=== PATIENT | female | born 1950 | race Caucasian/White ===

== ENCOUNTER 2023-07-10 21:23 | Inpatient (IN) ==
[2023-07-10] MEDS: SODIUM CHLORIDE 0.9% 500 ML IV STA (21:43)
[2023-07-10 22:11] LABS: Basophils # (auto) 0.02 K/uL (0.00-0.20); Basophils % (auto) 0.2 %; Eosinophils # (auto) 0.01 K/uL (0.00-0.50); Eosinophils % (auto) 0.1 %; Hematocrit (blood only) 40.6 % (37.0-47.0); Hemoglobin 13.5 g/dl (12.0-16.0); Immature Granulocytes # (auto) 0.07 K/uL (0.01-0.20); Immature Granulocytes % (auto) 0.5 %; Lymphocytes # (auto) 1.42 K/uL (1.20-3.40); Lymphocytes % (auto) 10.7 %; Mean Corpuscular Hemoglobin 30.8 pg (25.0-34.0); Mean Corpuscular Hgb Conc 33.3 g/dL (32.0-36.0); Mean Corpuscular Volume 92.7 fL (80.0-100.0); Mean Platelet Volume 9.5 fL (9.4-12.4); Monocytes # (auto) 0.87 K/uL (0.11-0.59); Monocytes % (auto) 6.6 %; Neutrophils # (auto) 10.88 K/uL (1.40-6.50); Neutrophils % (auto) 81.9 %; Platelet Count 280 K/uL (130-400); RDW Coefficient of Variation 12.5 % (11.5-14.5); RDW Standard Deviation 42.6 fL (36.4-46.3); Red Blood Count 4.38 M/uL (4.20-5.40); White Blood Count 13.27 K/ul (4.8-10.8)
[2023-07-10 22:22] LABS: Albumin Globulin Ratio 1.8 (0.9-2); Albumin Level 4.4 gm/dl (3.4-5.0); Bilirubin,Total 0.5 mg/dl (0.2-1.0); Calcium 9.2 mg/dl (8.6-10.3); Creatinine Clr Calc Pharmacy 54.5 ml/min; Est GFR (African American) 68.5 ml/min; Est GFR (Non-African American) 59.1 ml/min; Globulin 2.5 gm/dl (2.5-4.0); Potassium 4.1 mmol/L (3.5-5.1); Total Protein 6.9 gm/dl (6.0-8.3)
[2023-07-11 00:05] LABS: Appearance Urine Turbid (Clear); Bacteria Urine Automated 2+ (None Seen); Bilirubin Urine Negative (Negative); Blood Urine 1+ (Negative); Cast Urine Automated 0-2 /lpf (0-2); Color Urine Dark Yellow; Epithelial Cell Urine Auto 0-2 /hpf (0-2); Glucose Urine UA Negative (Negative); Ketones Urine Negative (Negative); Leukocyte Esterase Urine 3+ (Negative); Nitrite Urine Positive (Negative); Protein Urine 2+ (Negative); RBC Urine Automated >20 /hpf (0-2); Urobilinogen Urine Negative (Negative)
[2023-07-11] MEDS: ACETAMINOPHEN 1,000 MG/100 ML VIAL IV STA (00:30)
--- NOTE | 2023-07-11 00:56 | CT Scan Report ---
Exam(s): CT ABDOMEN + PELVIS Without Contrast EXAM: CT Abdomen and Pelvis Without Intravenous Contrast CLINICAL HISTORY: Reason for exam: R flank pain. TECHNIQUE: Axial computed tomography images of the abdomen and pelvis without intravenous contrast. CTDI is 22.14 mGy and DLP is 1132.15 mGy-cm. Automated exposure control was utilized for the study. A dose lowering technique was utilized adhering to the principles of ALARA. COMPARISON: No relevant prior studies available. FINDINGS: Lung bases: Unremarkable. No mass. No consolidation. ABDOMEN: Liver: Unremarkable. Gallbladder and bile ducts: Unremarkable. No calcified stones. No ductal dilation. Pancreas: Unremarkable. No ductal dilation. Spleen: Unremarkable. No splenomegaly. Adrenals: Unremarkable. No mass. Kidneys and ureters: Right-sided nephroureteral stent terminates in the urinary bladder. Severe hydronephrosis of the RIGHT kidney with perinephric stranding. Correlate for proper functioning of the RIGHT nephroureteral stent. Stomach and bowel: Diverticulosis, without acute diverticulitis. No small bowel obstruction. No free intraperitoneal air. PELVIS: Appendix: No findings to suggest acute appendicitis. Bladder: Unremarkable. No stones. Reproductive: Unremarkable as visualized. ABDOMEN and PELVIS: Intraperitoneal space: Unremarkable. No free air. No significant fluid collection. Bones/joints: Grade 1 anterolisthesis of L5 on S1 with bilateral pars defects at L5. Degenerative changes of the spine. No acute fracture. No dislocation. Soft tissues: Unremarkable. Vasculature: Atherosclerotic changes of the aorta. No abdominal aortic aneurysm. Lymph nodes: Unremarkable. No enlarged lymph nodes. IMPRESSION: Right-sided nephroureteral stent terminates in the urinary bladder. Severe hydronephrosis of the RIGHT kidney with perinephric stranding. Correlate for proper functioning of the RIGHT nephroureteral stent. Electronically signed by: Maximo Atkins MD 07/11/23 00:55 AM
[2023-07-11] MEDS: cefTRIAXone SODIUM 2,000 MG/50 ML BAG IV STA (01:14)
--- NOTE | 2023-07-11 02:49 | Emergency Department Note ---
History of Present Illness General Chief complaint: Flank Pain Stated complaint: KIDNEY INFECTON, R SIDED BACK PAIN, NAUSEA, STENT Time Seen by Provider: 07/11/23 00:04 History of Present Illness Maximum Pain Intensity: 0 This 72-year-old female with a stent in her right ureter presents the ER complaining of urinary symptoms and pain. Patient denies chest pain, dyspnea, fevers, vomiting. No rash. No trauma to the area. Home Medications Medication Instructions Recorded Confirmed Type atorvastatin 40 mg tablet 40 mg PO HS 08/02/19 07/11/23 History sertraline 50 mg tablet 50 mg PO HS 07/11/23 07/11/23 History Allergies Allergy/AdvReac Type Severity Reaction Status Date / Time No Known Allergies Allergy Unknown Verified 07/11/23 01:51 Past Med/Surg History Medical History Depression HLD (hyperlipidemia) Uterine cancer Surgical History Hx of tonsillectomy History of hysterectomy Family History Other Family history non-contributory Social History Smoking Status: Never smoker Hx Alcohol Use: No Hx Substance Use: No Preferred Language: Pashto Communication Ability: Effective Rotary Drier Required: Yes Beliefs That Will Affect Care: None Current Living Situation: Alone Current Living Situation Comment: Owns home, ramp to enter Other Information That Helps Us Care for You: No Feels Safe at Home: Yes Safety Concerns: Feels Safe At This Time Assistive Devices: None Review of Systems A total of 10 systems reviewed and were otherwise negative Physical Exam Vital Signs Vital Signs - 24 hr 07/10/23 21:31 07/11/23 00:23 07/11/23 00:33 Temperature 36.9 C Temperature Source Temporal Artery Scan Pulse Rate 83 68 Pulse Rate [Finger] 69 Pulse Rate from SpO2 Sensor Respiratory Rate 16 18 Respiratory Effort / Characteristics Non-Labored Spontaneous Respiratory Depth Normal Blood Pressure 179/79 H Blood Pressure [Left Arm] 182/82 H Blood Pressure Mean 112 Blood Pressure Mean [Left Arm] 115 Pulse Oximetry 96 92 Oxygen Delivery Method Room Air Sepsis Recent Fever Within 48 Hours No Sepsis New/Unexplained Change in Mental Status N/A Sepsis Action Taken by Nursing No Action Required 07/11/23 00:34 07/11/23 00:40 07/11/23 00:50 Temperature Temperature Source Pulse Rate 68 66 68 Pulse Rate [Finger] Pulse Rate from SpO2 Sensor 69 66 68 Respiratory Rate 20 20 20 Respiratory Effort / Characteristics Respiratory Depth Blood Pressure Blood Pressure [Left Arm] Blood Pressure Mean Blood Pressure Mean [Left Arm] Pulse Oximetry 96 94 92 Oxygen Delivery Method Sepsis Recent Fever Within 48 Hours Sepsis New/Unexplained Change in Mental Status Sepsis Action Taken by Nursing 07/11/23 01:00 07/11/23 01:04 07/11/23 01:04 Temperature Temperature Source Pulse Rate 63 64 64 Pulse Rate [Finger] Pulse Rate from SpO2 Sensor 63 62 Respiratory Rate 16 20 20 Respiratory Effort / Characteristics Respiratory Depth Blood Pressure 141/71 H Blood Pressure [Left Arm] Blood Pressure Mean 123 Blood Pressure Mean [Left Arm] Pulse Oximetry 96 96 96 Oxygen Delivery Method Sepsis Recent Fever Within 48 Hours Sepsis New/Unexplained Change in Mental Status Sepsis Action Taken by Nursing 07/11/23 01:10 07/11/23 01:20 07/11/23 01:30 Temperature Temperature Source Pulse Rate 61 75 70 Pulse Rate [Finger] Pulse Rate from SpO2 Sensor 62 77 69 Respiratory Rate 17 12 21 Respiratory Effort / Characteristics Respiratory Depth Blood Pressure Blood Pressure [Left Arm] Blood Pressure Mean Blood Pressure Mean [Left Arm] Pulse Oximetry 93 97 97 Oxygen Delivery Method Sepsis Recent Fever Within 48 Hours Sepsis New/Unexplained Change in Mental Status Sepsis Action Taken by Nursing 07/11/23 01:30 07/11/23 01:40 07/11/23 01:50 Temperature Temperature Source Pulse Rate 70 65 64 Pulse Rate [Finger] Pulse Rate from SpO2 Sensor 67 65 Respiratory Rate 21 22 19 Respiratory Effort / Characteristics Respiratory Depth Blood Pressure 154/85 H Blood Pressure [Left Arm] Blood Pressure Mean 126 Blood Pressure Mean [Left Arm] Pulse Oximetry 97 94 95 Oxygen Delivery Method Sepsis Recent Fever Within 48 Hours Sepsis New/Unexplained Change in Mental Status Sepsis Action Taken by Nursing 07/11/23 02:00 07/11/23 02:00 07/11/23 02:10 Temperature Temperature Source Pulse Rate 64 64 66 Pulse Rate [Finger] Pulse Rate from SpO2 Sensor 65 65 Respiratory Rate 23 23 19 Respiratory Effort / Characteristics Respiratory Depth Blood Pressure 159/80 H Blood Pressure [Left Arm] Blood Pressure Mean 111 Blood Pressure Mean [Left Arm] Pulse Oximetry 95 95 97 Oxygen Delivery Method Sepsis Recent Fever Within 48 Hours Sepsis New/Unexplained Change in Mental Status Sepsis Action Taken by Nursing 07/11/23 02:20 07/11/23 03:00 07/11/23 03:30 Temperature Temperature Source Pulse Rate 64 60 60 Pulse Rate [Finger] Pulse Rate from SpO2 Sensor 65 60 61 Respiratory Rate 17 15 21 Respiratory Effort / Characteristics Respiratory Depth Blood Pressure 141/68 H 128/69 Blood Pressure [Left Arm] Blood Pressure Mean 92 88 Blood Pressure Mean [Left Arm] Pulse Oximetry 98 93 94 Oxygen Delivery Method Room Air Room Air Sepsis Recent Fever Within 48 Hours Sepsis New/Unexplained Change in Mental Status Sepsis Action Taken by Nursing 07/11/23 04:00 07/11/23 04:00 Temperature Temperature Source Pulse Rate 69 Pulse Rate [Finger] Pulse Rate from SpO2 Sensor 68 Respiratory Rate 16 Respiratory Effort / Characteristics Respiratory Depth Blood Pressure 130/66 Blood Pressure [Left Arm] Blood Pressure Mean 86 Blood Pressure Mean [Left Arm] Pulse Oximetry 93 Oxygen Delivery Method Sepsis Recent Fever Within 48 Hours Sepsis New/Unexplained Change in Mental Status Sepsis Action Taken by Nursing VITALS: Vitals are noted on the nurse's note and reviewed by myself. Vital signs stable. GENERAL: Pleasant female with friend present, in no acute distress, nondiaphoretic, well-developed well-nourished. SKIN: Capillary reflex less than 2 seconds. HEENT: Normocephalic. PERRLA. EOMI. Nares patent. Mucous membranes moist. Neck is supple without nuchal rigidity. HEART: Regular rate and rhythm LUNGS: Clear to auscultation bilaterally without wheezes, rales or rhonchi. No retractions or accessory muscle use. ABDOMEN: Positive bowel sounds x 4. Normal tympanic percussion. Soft, tender lower abdomen, without masses or organomegaly. Warner sign negative. No guarding or rebound tenderness. no CVA tenderness MUSCULOSKELETAL: No gross musculoskeletal defects. NEURO: Patient was alert and oriented to person place and time. No focal neurological deficits. Course Administered Medications Sodium Chloride (Nss) 1,000 mls @ 125 mls/hr IV .Q8H OLVIN Stop: 08/10/23 05:11 Last Admin: 07/11/23 16:20 Dose: 125 mls/hr Documented By: Infusion: 07/11/23 16:17 Dose: Infused Documented By: Admin: 07/11/23 05:49 Dose: 125 mls/hr Documented By: KESHA Discontinued Medications Sodium Chloride (Nss) 500 mls @ 999 mls/hr IV .Q31M STA Stop: 07/10/23 22:02 Last Infusion: 07/11/23 00:19 Dose: Infused Documented By: Admin: 07/10/23 21:43 Dose: 999 mls/hr Documented By: GELA Acetaminophen (Ofirmev) 1,000 mg in 100 mls @ 400 mls/hr IV NOW STA Stop: 07/11/23 00:27 Last Infusion: 07/11/23 01:27 Dose: Infused Documented By: Admin: 07/11/23 00:30 Dose: 400 mls/hr Documented By: BURTON Ceftriaxone Sodium (Rocephin) 2,000 mg in 50 mls @ 100 mls/hr IV NOW STA Stop: 07/11/23 01:10 Last Infusion: 07/11/23 01:43 Dose: Infused Documented By: Admin: 07/11/23 01:14 Dose: 100 mls/hr Documented By: BURTON Medical Decision Making Medical Records Attestation: I reviewed the patient's medical records. Home Medications Current Medication List: was personally reviewed by me Laboratory Data Attestation: I reviewed the patient's lab results. 07/11/23 06:57 07/11/23 06:57 Lab Results 07/10/23 07/10/23 07/11/23 Range/Units 21:44 23:53 01:13 WBC 13.27 H (4.8-10.8) K/ul RBC 4.38 (4.20-5.40) M/uL Hgb 13.5 (12.0-16.0) g/dl Hct 40.6 (37.0-47.0) % MCV 92.7 (80.0-100.0) fL MCH 30.8 (25.0-34.0) pg MCHC 33.3 (32.0-36.0) g/dL RDW Std Deviation 42.6 (36.4-46.3) fL RDW Coeff of Narayan 12.5 (11.5-14.5) % Plt Count 280 (130-400) K/uL MPV 9.5 (9.4-12.4) fL Immature Gran % (Auto) 0.5 % Neut % (Auto) 81.9 % Lymph % (Auto) 10.7 % Pepin % (Auto) 6.6 % Eos % (Auto) 0.1 % Baso % (Auto) 0.2 % Neut # (Auto) 10.88 H (1.40-6.50) K/uL Lymph # (Auto) 1.42 (1.20-3.40) K/uL Pepin # (Auto) 0.87 H (0.11-0.59) K/uL Eos # (Auto) 0.01 (0.00-0.50) K/uL Baso # (Auto) 0.02 (0.00-0.20) K/uL Immature Gran # (Auto) 0.07 (0.01-0.20) K/uL Sodium 138 (136-145) mmol/L Potassium 4.1 (3.5-5.1) mmol/L Chloride 104 (98-107) mmol/L Carbon Dioxide 25 (21-32) mmol/L Anion Gap 9 (3-11) BUN 23 (6-23) mg/dl Creatinine 0.96 (0.6-1.2) mg/dl Est Cr Clr Drug Dosing 54.5 ml/min Est GFR ( Amer) 68.5 ml/min Est GFR (Non-Af Amer) 59.1 ml/min BUN/Creatinine Ratio 24.0 H (10-20) Glucose 132 H (70-99(Fasting)) mg/dl Lactate 1.1 (0.4-2.0) mmol/L Calcium 9.2 (8.6-10.3) mg/dl Total Bilirubin 0.5 (0.2-1.0) mg/dl AST 19 (13-39) U/L ALT 19 (7-52) U/L Alkaline Phosphatase 82 (34-104) U/L Total Protein 6.9 (6.0-8.3) gm/dl Albumin 4.4 (3.4-5.0) gm/dl Globulin 2.5 (2.5-4.0) gm/dl Albumin/Globulin Ratio 1.8 (0.9-2) Urine Color Dark Yellow Urine Appearance Turbid A (Clear) Urine pH 8.0 H (4.5-7.5) Ur Specific [place] 1.020 (1.000-1.030) Urine Protein 2+ H (Negative) Urine Glucose (UA) Negative (Negative) Urine Ketones Negative (Negative) Urine Blood 1+ H (Negative) Urine Nitrite Positive A (Negative) Urine Bilirubin Negative (Negative) Urine Urobilinogen Negative (Negative) Ur Leukocyte Esterase 3+ H (Negative) Urine WBC (Auto) 6-10 H (0-5) /hpf Urine RBC (Auto) >20 H (0-2) /hpf U Hyaline Cast (Auto) 0-2 (0-2) /lpf U Epithel Cells (Auto) 0-2 (0-2) /hpf Urine Bacteria (Auto) 2+ H (None Seen) Imaging Data Attestation: I personally reviewed and interpreted this imaging study as follows: Radiologist's Impression: Abdomen/Pelvis CT 07/10/23 21:39 Exam(s): CT ABDOMEN + PELVIS Without Contrast EXAM: CT Abdomen and Pelvis Without Intravenous Contrast CLINICAL HISTORY: Reason for exam: R flank pain. TECHNIQUE: Axial computed tomography images of the abdomen and pelvis without intravenous contrast. CTDI is 22.14 mGy and DLP is 1132.15 mGy-cm. Automated exposure control was utilized for the study. A dose lowering technique was utilized adhering to the principles of ALARA. COMPARISON: No relevant prior studies available. FINDINGS: Lung bases: Unremarkable. No mass. No consolidation. ABDOMEN: Liver: Unremarkable. Gallbladder and bile ducts: Unremarkable. No calcified stones. No ductal dilation. Pancreas: Unremarkable. No ductal dilation. Spleen: Unremarkable. No splenomegaly. Adrenals: Unremarkable. No mass. Kidneys and ureters: Right-sided nephroureteral stent terminates in the urinary bladder. Severe hydronephrosis of the RIGHT kidney with perinephric stranding. Correlate for proper functioning of the RIGHT nephroureteral stent. Stomach and bowel: Diverticulosis, without acute diverticulitis. No small bowel obstruction. No free intraperitoneal air. PELVIS: Appendix: No findings to suggest acute appendicitis. Bladder: Unremarkable. No stones. Reproductive: Unremarkable as visualized. ABDOMEN and PELVIS: Intraperitoneal space: Unremarkable. No free air. No significant fluid collection. Bones/joints: Grade 1 anterolisthesis of L5 on S1 with bilateral pars defects at L5. Degenerative changes of the spine. No acute fracture. No dislocation. Soft tissues: Unremarkable. Vasculature: Atherosclerotic changes of the aorta. No abdominal aortic aneurysm. Lymph nodes: Unremarkable. No enlarged lymph nodes. IMPRESSION: Right-sided nephroureteral stent terminates in the urinary bladder. Severe hydronephrosis of the RIGHT kidney with perinephric stranding. Correlate for proper functioning of the RIGHT nephroureteral stent. Electronically signed by: Maximo Atkins MD 07/11/23 00:55 AM MDM Narrative Prior records/ancillary studies reviewed. Triage Nursing notes reviewed. Additional history obtained from friend. The patient's history was concerning for urinary symptoms and flank pain Differential diagnosis: Etiologies such as appendicitis, diverticulitis, PUD, biliary pathology, UTI, pancreatitis, obstruction, mesenteric ischemia, aortic pathology, infections, inflammatory bowel disease, renal colic, as well as others were entertained. Physical examination findings: As above. ER treatment provided: An order was placed for continuous cardiac monitoring. The monitor shows a rate of 60-100 with a sinus rhythm per my Independent interpretation. Rocephin and Tylenol ordered On reassessment the patient felt better. Diagnostics interpreted by me: The labs Independently Interpreted by myself revealed urine concerning for infection sent for culture. No prior urine culture for review Leukocytosis Imaging studies: CT as above Consultation: A consultation was placed with the hospitalist. The case was discussed and diagnostics were reviewed. The patient was evaluated in the ER for further treatment. Exam and history seem consistent with pyelonephritis. Patient was started on antibiotics. No prior urine culture for review. Medicine was consulted case discussed. She will be mated to the medical service for further evaluation and treatment. 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 She follows with Dr. Mcnamara for this. By the evaluation outlined above emergent etiologies such as appendicitis, diverticulitis, PUD, biliary pathology, pancreatitis, obstruction, mesenteric ischemia, aortic pathology, inflammatory bowel disease, renal colic, as well as others were deemed relatively unlikely. The pt informed about the findings as listed above. All questions were answered and pleased with the treatment. The chart was completed utilizing [employer] voice recognition software. Grammatical errors, random word insertions, pronoun errors, and incomplete sentences are an occassional consequence of this system due to software limitations, ambient noise, and hardware issues. Any formal questions or concerns about the content, text, or information contained within the body of this dictation should be directly addressed to the physician behavioral health assistant for clarification. Impression & Plan Acute pyelonephritis Discharge Plan Visit Data Chief Complaint: Flank Pain Stated Complaint: KIDNEY INFECTON, R SIDED BACK PAIN, NAUSEA, STENT ED Provider: Woody Braun ED Midlevel Provider: Florence Zhou Discharge Problem: Acute pyelonephritis Patient Disposition: Admitted As Inpatient Condition: Fair Discharge Instructions Interventions: ED Discharge Assessment Last Done: 07/11/23 05:13
--- NOTE | 2023-07-11 04:23 | History & Physical Report ---
Date of Service July 11, 2023 Assessment & Plan (1) Acute pyelonephritis: Plan: 72-year-old female with past medical history significant for dyslipidemia, right ureteral stricture and hydronephrosis, history of uterine cancer as per patient 25 to 30 years ago s/p radiation treatment and s/p ureteral stent which is exchanged every 5 months and next exchange August 2023, history of depression presents with burning micturition and the right flank pain starting in the morning. Was nauseous. Denies any blood in the urine. No fevers. Normal bowel movements. No chest pain or shortness of breath. No cough. No headache. No runny nose or sore throat. Appetite is okay. Currently resting comfortably and hemodynamically stable. Acute pyelonephritis right side Right severe hydronephrosis on CT scan. Question of proper function of ureteral stent UTI Empiric Rocephin Follow cultures N.p.o., IV fluids Consult urology History of uterine cancer S/p radiation S/p ureteral stent Hyperlipidemia On statin Depression On Zoloft DVT prophylaxis SCDs for now Disposition Medical floor Full code History of Present Illness Chief Complaint: Right pyelonephritis Primary Care Provider: Marina Baird MD 72-year-old female with past medical history significant for dyslipidemia, right ureteral stricture and hydronephrosis, history of uterine cancer as per patient 25 to 30 years ago s/p radiation treatment and s/p ureteral stent which is exchanged every 5 months and next exchange August 2023, history of depression presents with burning micturition and the right flank pain starting in the morning. Was nauseous. Denies any blood in the urine. No fevers. Normal bowel movements. No chest pain or shortness of breath. No cough. No headache. No runny nose or sore throat. Appetite is okay. Currently resting comfortably and hemodynamically stable. Past medical history. As mentioned above Past surgical history. Colonoscopy. Cystoscopy with insertion of stent on right side multiple times, tonsillectomy, total abdominal hysterectomy with removal of tubes Social history. No smoking. No alcohol. No drug use. Family history. Father had pancreatic cancer. Mother had diabetes. Ovarian cancer. Sister had diabetes. Sister had uterine cancer. Son had Upson's disease disease. Niece has uterine cancer. Maternal uncle had mesothelioma Allergies Allergy/AdvReac Type Severity Reaction Status Date / Time No Known Allergies Allergy Unknown Verified 07/11/23 01:51 Home Medications Medication Instructions Recorded Confirmed Type atorvastatin 40 mg tablet 40 mg PO HS 08/02/19 07/11/23 History sertraline 50 mg tablet 50 mg PO HS 07/11/23 07/11/23 History Past Med/Surg History Medical History Depression HLD (hyperlipidemia) Uterine cancer Surgical History Hx of tonsillectomy History of hysterectomy Family History Other Family history non-contributory Social History Smoking Status: Never smoker Hx Alcohol Use: No Hx Substance Use: No Preferred Language: German Communication Ability: Effective Operator Supply Required: Yes Beliefs That Will Affect Care: None Current Living Situation: Alone Current Living Situation Comment: Owns home, ramp to enter Other Information That Helps Us Care for You: No Feels Safe at Home: Yes Safety Concerns: Feels Safe At This Time Assistive Devices: None Review of Systems Review of Systems: All systems reviewed & are unremarkable except as noted in HPI & below Physical Exam Physical Exam: General- Not in distress Head- atraumatic Eyes- PERRL. ENT- oropharynx clear Neck- supple, no JVD. Lungs- clear to auscultation no wheezing or crackles. Heart- regular rate and rhythm; no murmur, no gallop. Abdomen- normal bowel sounds, soft, nontender, no distension, No CVA tenderness. Extremities- no pretibial edema, no erythema seen. Neuro- alert, oriented , PERRL, ; no facial palsy; no dysarthria; moves extremit ies. Skin- warm & dry Results & Data Results & Data Vital Signs (Past 12 Hours) Vital Signs Temp Pulse Pulse Resp BP BP Pulse Ox 07/11/23 03:30 60 21 128/69 94 07/11/23 03:00 60 15 141/68 H 93 07/11/23 02:20 64 17 98 07/11/23 02:10 66 19 97 07/11/23 02:00 64 23 159/80 H 95 07/11/23 02:00 64 23 95 07/11/23 01:50 64 19 95 07/11/23 01:40 65 22 94 07/11/23 01:30 70 21 154/85 H 97 07/11/23 01:30 70 21 97 07/11/23 01:20 75 12 97 07/11/23 01:10 61 17 93 07/11/23 01:04 64 20 141/71 H 96 07/11/23 01:04 64 20 96 07/11/23 01:00 63 16 96 07/11/23 00:50 68 20 92 07/11/23 00:40 66 20 94 07/11/23 00:34 68 20 96 07/11/23 00:33 68 07/11/23 00:23 69 18 182/82 H 92 07/10/23 21:31 36.9 C 83 16 179/79 H 96 O2 Del Method 07/11/23 03:30 Room Air 07/11/23 03:00 Room Air 07/11/23 02:20 07/11/23 02:10 07/11/23 02:00 07/11/23 02:00 07/11/23 01:50 07/11/23 01:40 07/11/23 01:30 07/11/23 01:30 07/11/23 01:20 07/11/23 01:10 07/11/23 01:04 07/11/23 01:04 07/11/23 01:00 07/11/23 00:50 07/11/23 00:40 07/11/23 00:34 07/11/23 00:33 07/11/23 00:23 07/10/23 21:31 Room Air Diagnostic Findings Laboratory Results WBC 13.27 K/ul (4.8-10.8) H 07/10/23 21:44 RBC 4.38 M/uL (4.20-5.40) 07/10/23 21:44 Hgb 13.5 g/dl (12.0-16.0) 07/10/23 21:44 Hct 40.6 % (37.0-47.0) 07/10/23 21:44 MCV 92.7 fL (80.0-100.0) 07/10/23 21:44 MCH 30.8 pg (25.0-34.0) 07/10/23 21:44 MCHC 33.3 g/dL (32.0-36.0) 07/10/23 21:44 RDW Std Deviation 42.6 fL (36.4-46.3) 07/10/23 21:44 RDW Coeff of Narayan 12.5 % (11.5-14.5) 07/10/23 21:44 Plt Count 280 K/uL (130-400) 07/10/23 21:44 MPV 9.5 fL (9.4-12.4) 07/10/23 21:44 Immature Gran % (Auto) 0.5 % 07/10/23 21:44 Neut % (Auto) 81.9 % 07/10/23:44 Lymph % (Auto) 10.7 % 07/10/23 21:44 Carver % (Auto) 6.6 % 07/10/23 21:44 Eos % (Auto) 0.1 % 07/10/23:44 Baso % (Auto) 0.2 % 07/10/23 21:44 Neut # (Auto) 10.88 K/uL (1.40-6.50) H 07/10/23 21:44 Lymph # (Auto) 1.42 K/uL (1.20-3.40) 07/10/23 21:44 Carver # (Auto) 0.87 K/uL (0.11-0.59) H 07/10/23 21:44 Eos # (Auto) 0.01 K/uL (0.00-0.50) 07/10/23:44 Baso # (Auto) 0.02 K/uL (0.00-0.20) 07/10/23 21:44 Immature Gran # (Auto) 0.07 K/uL (0.01-0.20) 07/10/23 21:44 Sodium 138 mmol/L (136-145) 07/10/23 21:44 Potassium 4.1 mmol/L (3.5-5.1) 07/10/23 21:44 Chloride 104 mmol/L (98-107) 07/10/23 21:44 Carbon Dioxide 25 mmol/L (21-32) 07/10/23 21:44 Anion Gap 9 (3-11) 07/10/23 21:44 BUN 23 mg/dl (6-23) 07/10/23 21:44 Creatinine 0.96 mg/dl (0.6-1.2) 07/10/23 21:44 Est Cr Clr Drug Dosing 54.5 ml/min 07/10/23 21:44 Est GFR ( Amer) 68.5 ml/min 07/10/23 21:44 Est GFR (Non-Af Amer) 59.1 ml/min 07/10/23 21:44 BUN/Creatinine Ratio 24.0 (10-20) H 07/10/23 21:44 Glucose 132 mg/dl (70-99(Fasting)) H 07/10/23 21:44 Lactate 1.1 mmol/L (0.4-2.0) 07/11/23 01:13 Calcium 9.2 mg/dl (8.6-10.3) 07/10/23 21:44 Total Bilirubin 0.5 mg/dl (0.2-1.0) 07/10/23 21:44 AST 19 U/L (13-39) 07/10/23 21:44 ALT 19 U/L (7-52) 07/10/23 21:44 Alkaline Phosphatase 82 U/L (34-104) 07/10/23 21:44 Total Protein 6.9 gm/dl (6.0-8.3) 07/10/23 21:44 Albumin 4.4 gm/dl (3.4-5.0) 07/10/23 21:44 Globulin 2.5 gm/dl (2.5-4.0) 07/10/23 21:44 Albumin/Globulin Ratio 1.8 (0.9-2) 07/10/23 21:44 Urine Color Dark Yellow 07/10/23 23:53 Urine Appearance Turbid (Clear) A 07/10/23 23:53 Urine pH 8.0 (4.5-7.5) H 07/10/23 23:53 Ur Specific [place] 1.020 (1.000-1.030) 07/10/23 23:53 Urine Protein 2+ (Negative) H 07/10/23 23:53 Urine Glucose (UA) Negative (Negative) 07/10/23 23:53 Urine Ketones Negative (Negative) 07/10/23 23:53 Urine Blood 1+ (Negative) H 07/10/23 23:53 Urine Nitrite Positive (Negative) A 07/10/23 23:53 Urine Bilirubin Negative (Negative) 07/10/23 23:53 Urine Urobilinogen Negative (Negative) 07/10/23 23:53 Ur Leukocyte Esterase 3+ (Negative) H 07/10/23 23:53 Urine WBC (Auto) 6-10 /hpf (0-5) H 07/10/23 23:53 Urine RBC (Auto) >20 /hpf (0-2) H 07/10/23 23:53 U Hyaline Cast (Auto) 0-2 /lpf (0-2) 07/10/23 23:53 U Epithel Cells (Auto) 0-2 /hpf (0-2) 07/10/23 23:53 Urine Bacteria (Auto) 2+ (None Seen) H 07/10/23 23:53 Impressions Abdomen/Pelvis CT 07/10/23 21:39 Exam(s): CT ABDOMEN + PELVIS Without Contrast EXAM: CT Abdomen and Pelvis Without Intravenous Contrast CLINICAL HISTORY: Reason for exam: R flank pain. TECHNIQUE: Axial computed tomography images of the abdomen and pelvis without intravenous contrast. CTDI is 22.14 mGy and DLP is 1132.15 mGy-cm. Automated exposure control was utilized for the study. A dose lowering technique was utilized adhering to the principles of ALARA. COMPARISON: No relevant prior studies available. FINDINGS: Lung bases: Unremarkable. No mass. No consolidation. ABDOMEN: Liver: Unremarkable. Gallbladder and bile ducts: Unremarkable. No calcified stones. No ductal dilation. Pancreas: Unremarkable. No ductal dilation. Spleen: Unremarkable. No splenomegaly. Adrenals: Unremarkable. No mass. Kidneys and ureters: Right-sided nephroureteral stent terminates in the urinary bladder. Severe hydronephrosis of the RIGHT kidney with perinephric stranding. Correlate for proper functioning of the RIGHT nephroureteral stent. Stomach and bowel: Diverticulosis, without acute diverticulitis. No small bowel obstruction. No free intraperitoneal air. PELVIS: Appendix: No findings to suggest acute appendicitis. Bladder: Unremarkable. No stones. Reproductive: Unremarkable as visualized. ABDOMEN and PELVIS: Intraperitoneal space: Unremarkable. No free air. No significant fluid collection. Bones/joints: Grade 1 anterolisthesis of L5 on S1 with bilateral pars defects at L5. Degenerative changes of the spine. No acute fracture. No dislocation. Soft tissues: Unremarkable. Vasculature: Atherosclerotic changes of the aorta. No abdominal aortic aneurysm. Lymph nodes: Unremarkable. No enlarged lymph nodes. IMPRESSION: Right-sided nephroureteral stent terminates in the urinary bladder. Severe hydronephrosis of the RIGHT kidney with perinephric stranding. Correlate for proper functioning of the RIGHT nephroureteral stent. Electronically signed by: Maximo Atkins MD 07/11/23 00:55 AM Code Status & VTE Plan VTE Prophylaxis Plan VTE Prophylaxis will be ordered: Yes
[2023-07-11] MEDS ORDERED: ACETAMINOPHEN 325 MG TAB PO PRN (05:12)
[2023-07-11] MEDS ORDERED: POLYETHYLENE (MIRALAX) 17 GM PACK PO PRN (05:12)
[2023-07-11] MEDS: SODIUM CHLORIDE 0.9% 1,000 ML IV SCH (05:49)
[2023-07-11 07:17] LABS: Basophils # (auto) 0.01 K/uL (0.00-0.20); Basophils % (auto) 0.1 %; Eosinophils # (auto) 0.07 K/uL (0.00-0.50); Eosinophils % (auto) 0.7 %; Hematocrit (blood only) 37.8 % (37.0-47.0); Hemoglobin 12.7 g/dl (12.0-16.0); Immature Granulocytes # (auto) 0.04 K/uL (0.01-0.20); Immature Granulocytes % (auto) 0.4 %; Lymphocytes # (auto) 2.08 K/uL (1.20-3.40); Lymphocytes % (auto) 20.4 %; Mean Corpuscular Hemoglobin 30.7 pg (25.0-34.0); Mean Corpuscular Hgb Conc 33.6 g/dL (32.0-36.0); Mean Corpuscular Volume 91.3 fL (80.0-100.0); Mean Platelet Volume 9.8 fL (9.4-12.4); Monocytes # (auto) 1.05 K/uL (0.11-0.59); Monocytes % (auto) 10.3 %; Neutrophils # (auto) 6.94 K/uL (1.40-6.50); Neutrophils % (auto) 68.1 %; Platelet Count 267 K/uL (130-400); RDW Coefficient of Variation 12.6 % (11.5-14.5); RDW Standard Deviation 41.7 fL (36.4-46.3); Red Blood Count 4.14 M/uL (4.20-5.40); White Blood Count 10.19 K/ul (4.8-10.8)
[2023-07-11 07:34] LABS: BUN Creatinine Ratio 20.2 (10-20); Calcium 8.7 mg/dl (8.6-10.3); Creatinine Clr Calc Pharmacy 55.7 ml/min; Est GFR (African American) 70.2 ml/min; Est GFR (Non-African American) 60.6 ml/min; Magnesium 2.1 mg/dl (1.7-2.4); Potassium 3.7 mmol/L (3.5-5.1)
--- NOTE | 2023-07-11 07:48 | Urology Consultation ---
<Statement entered by Andreas Estrella MD - 07/11/23 14:30> I have discussed Ms. Ferreira case with DONNIE Aparicio and agree with the above documentation. She has been hemodynamically stable and subjectively feels like she is improving on antibiotics. I suspect she has some chronic dilation of the renal pelvis. Her current ureteral stent looks to be in good position on imaging. For now, I would recommend holding off stent exchange and managing conservatively, treated with antibiotics and adjusting based on culture as becomes available. If she starts having hemodynamic changes, fevers or chills, worsening flank pain, would reconsider intervention. If she continues to improve, she can follow-up with her primary urologist as an outpatient for a stent exchange on their routine schedule. -Andreas Estrella MD. Date of Consultation July 11, 2023 Assessment & Plan (1) Acute pyelonephritis: (2) Hydronephrosis, right: (3) UTI (urinary tract infection): Plan Findings: Patient is hemodynamically stable and afebrile Urinary symptoms and pain on arrival are now well managed White count trending down currently 10.19 Kidney function is within normal limits creatinine <1.0 CT shows right hydronephrosis, stent is in appropriate place Patient has chronic stent exchanges with outside facility due for next exchange in approx two months Recommendations: Monitor cultures, urine and blood, and adjust broad-spectrum antibiotics as indicated No surgical intervention is needed at this time, will monitor for change in conditions, and reevaluate if necessary Other recommendations per primary team Follow up with outside urologist for further treatment of chronic hydronephrosis/stents Urology will follow peripherally Please contact urology if any further concerns History of Present Illness Attending Physician: Juan Lopez MD History of Present Illness 72-year-old female with chronic stents who reports to the ER complaining of urinary symptoms and right flank pain. Labs reviewed 07/11/2023 Creatinine 0.94 WBC 10.19 ( 07/10/23 13.27) Hemoglobin 12.7 Hematocrit 37.8% UA on 07/10/2023 pH 8.0, 2+ protein, 1+ blood, positive nitrates, 3+ leukocyte Estrace, 6-10 WBCs, greater than 20 RBCs Urine and blood cultures are pending Vital signs are stable. CT on 07/10/2023 of the abdomen pelvis with IV contrast shows right-sided nephroureteral stent terminates in the urinary bladder, severe hydronephrosis of the right kidney with perinephric stranding. Possible concerning for proper function of the right nephroureteral stent. The left kidney is somewhat atrophic without stones or hydronephrosis. The bladder is unremarkable without stones. No previous CTs available for review. Patient was assessed at bedside. She has had chronic stents for 10 years due to scar tissue from radiation from uterine cancer. Stent exchanges currently with [facility] urology, Dr. Mcnamara, last exchange in with follow up in July for another exchange likely in August. Has been told she has chronic hydronephrosis despite stents. Typically handles stents appropriately with out pain/urinary symptoms. No history of recurrent UTIs. Was having righted sided flank pain, nausea and dysuria which is why she presented to the ER yesterday. Currently denying gross hematuria, dysuria, flank pain, fevers, chills, N/V. Allergies Allergy/AdvReac Type Severity Reaction Status Date / Time No Known Allergies Allergy Unknown Verified 07/11/23 01:51 Home Medications Medication Instructions Recorded Confirmed Type atorvastatin 40 mg tablet 40 mg PO HS 08/02/19 07/11/23 History sertraline 50 mg tablet 50 mg PO HS 07/11/23 07/11/23 History Patient History Medical History Depression HLD (hyperlipidemia) Uterine cancer Surgical History Hx of tonsillectomy History of hysterectomy Family History Other Family history non-contributory Social History Smoking Status: Never smoker Hx Alcohol Use: No Hx Substance Use: No Preferred Language: Malay Communication Ability: Effective 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 Beliefs That Will Affect Care: None Current Living Situation: Alone Current Living Situation Comment: Owns home, ramp to enter Other Information That Helps Us Care for You: No Feels Safe at Home: Yes Safety Concerns: Feels Safe At This Time Assistive Devices: None Review of Systems Review of Systems: All systems reviewed & are unremarkable except as noted in HPI & below Constitutional: as per Subjective / HPI Genitourinary: as per Subjective / HPI Psychiatric: as per Subjective / HPI Physical Exam Constitutional: well developed and well nourished; no acute distress Eyes: + anicteric sclerae; pupils not irregula r Respiratory: normal respiratory effort; no respiratory distress, does not use accessory muscles and normal respiratory pattern Cardiovascular: well perfused Gastrointestinal (Abdomen): Inspection/Auscultation: abdomen normal to inspection Musculoskeletal: Extremities: extremities normal to inspection Neurologic: moves all extremities and awake Speech / Cognition: normal speech Psychiatric: Orientation: alert and oriented x 3 Eye Contact: good eye contact Results & Data Vital Signs (Past 12 Hours) Vital Signs Temp Pulse Pulse Resp BP BP Pulse Ox 07/11/23 06:00 95 07/11/23 06:00 140/65 07/11/23 05:35 95 07/11/23 05:35 138/70 07/11/23 05:30 95 07/11/23 05:20 07/11/23 05:00 141/82 H 07/11/23 05:00 95 07/11/23 04:45 64 07/11/23 04:30 64 22 94 07/11/23 04:30 135/75 07/11/23 04:00 130/66 07/11/23 04:00 69 16 93 07/11/23 03:30 60 21 128/69 94 07/11/23 03:00 60 15 141/68 H 93 07/11/23 02:20 64 17 98 07/11/23 02:10 66 19 97 07/11/23 02:00 64 23 159/80 H 95 07/11/23 02:00 64 23 95 07/11/23 01:50 64 19 95 07/11/23 01:40 65 22 94 07/11/23 01:30 70 21 154/85 H 97 07/11/23 01:30 70 21 97 07/11/23 01:20 75 12 97 07/11/23 01:10 61 17 93 07/11/23 01:04 64 20 141/71 H 96 07/11/23 01:04 64 20 96 07/11/23 01:00 63 16 96 07/11/23 00:50 68 20 92 07/11/23 00:40 66 20 94 07/11/23 00:34 68 20 96 07/11/23 00:33 68 07/11/23 00:23 69 18 182/82 H 92 07/10/23 21:31 36.9 C 83 16 179/79 H 96 O2 Del Method 07/11/23 06:00 07/11/23 06:00 07/11/23 05:35 07/11/23 05:35 07/11/23 05:30 07/11/23 05:20 Room Air 07/11/23 05:00 07/11/23 05:00 07/11/23 04:45 07/11/23 04:30 07/11/23 04:30 07/11/23 04:00 07/11/23 04:00 07/11/23 03:30 Room Air 07/11/23 03:00 Room Air 07/11/23 02:20 07/11/23 02:10 07/11/23 02:00 07/11/23 02:00 07/11/23 01:50 07/11/23 01:40 07/11/23 01:30 07/11/23 01:30 07/11/23 01:20 07/11/23 01:10 07/11/23 01:04 07/11/23 01:04 07/11/23 01:00 07/11/23 00:50 07/11/23 00:40 07/11/23 00:34 07/11/23 00:33 07/11/23 00:23 07/10/23 21:31 Room Air PG Care Time/CCT Total # of Minutes Spent Total Time Spent with Patient: Total time spent is greater than 50% in coordination of care (as documented) at patient's floor/unit and/or counseling patient: Coding Level of Care Code 70247 INT INP/OBS CARE 2/55MIN Diagnoses Acute pyelonephritis N10 Hydronephrosis, right N13.30 Acute pyelonephritis N10 Urinary tract infection type: acute pyelonephritis (3) UTI (urinary tract infection) Urinary tract infection type: acute pyelonephritis Qualified Code(s): N10 - Acute pyelonephritis
--- NOTE | 2023-07-11 16:24 | Communication Note ---
Date of Service: July 11, 2023 The patient was seen and examined in emergency room. Came in with abdominal pain and urinary tract infection with a status post stent placement recently. Evaluated by urologist. Has been getting treatment for UTI and awaiting cultures. Remains medically stable. She will be full progress note tomorrow. Dr Leisa Lopez
--- OUTSIDE RECORDS SUMMARY | 2023-07-11 16:35 | External Medical Summary | Summary of Care ---
Author Name Unknown Organization [facility] Address [address] [facility] [place] [address] Phone [phone] Care Team Providers Care Food And Nutrition Services Supervisor Name Role Phone Marina Baird MD Primary Care Provider Reason for Visit * Auth/Cert Specialty Diagnoses / Procedures Referred By Contjames t Referred To Contact Diagnoses Stricture of ureter Stricture of ureter [N13.5] Procedures CYSTOSCOPY/REMOVE OBJECT, SIMPLE CYSTOSCOPY/INSERTION OF STENT CYSTOURETHROSCOPY WITH FOREIGN BODY REMOVAL SIMPLE CYSTOURETHROSCOPY WITH INSERTION URETERAL STENT Referral ID Status Reason Start Date Expiration Date Visits Re quested Visits Authorized [id number] Encounter Details Date Type Department Care Team (Latest Contact Info) Description 04/22/2023 6:45 AM EST - 04/22/2023 8:53 AM EST Hospital Encounter OR [facility], Operating Room [facility] [address] [facility] [place] [address] Bridger Mcnamara MD 27 [facility] [address] [place] [address] Discharge Disposition: Home - Self Care Allergies Active Allergy Reactions Criticality Noted Date Comments Pollen 12/20/2020 Seasonal allergies documented as of this encounter (statuses as of 04/22/2023) Medications Medication Sig Dispensed Refills Start Date End Date Status Calcium Carb-Cholecalcifero l 500-600 MG-UNIT Oral Tablet Take 1 Tablet by mouth in the morning. 0 Active Omeprazole 20 MG Oral Capsule Delayed Release (PriLOSEC)Indicatio ns:Gastroesophageal reflux disease without esophagitis Take by mouth 1 Capsule in the morning. 1 hour before the first meal of the day. 30 Capsule 5 01/24/2022 Active Additional Information Patient not taking.Reported on 04/22/2023 Sertraline HCl 50 MG Oral Tablet (Zoloft)Indications :Current mild episode of major depressive disorder without prior episode (HCC) Take 1 Tablet by mouth at bedtime. 90 Tablet 3 01/30/2023 Active Atorvastatin Calcium 40 MG Oral Tablet (Lipitor)Indication s:Dyslipidemia, goal LDL below 130 Take 1 Tablet by mouth at bedtime. 90 Tablet 3 01/30/2023 Active Zoster Vac Recomb Adjuvanted 50 MCG/0.5ML Intramuscular Suspension Reconstituted (Shingrix)Indicatio ns:Need for zoster vaccination Inject 0.5 mL into a large muscle now and repeat dose in 60 to 180 days 1 Each 1 01/30/2023 Active Sulfamethoxazole-Tr imethoprim 800-160 MG Oral Tablet (Bactrim DS) Take 1 Tablet by mouth in the morning and 1 Tablet before bedtime. 8 Tablet 0 04/22/2023 Active Amoxicillin-Pot Clavulanate 875-125 MG Oral Tablet (Augmentin)Indicati ons:Acute sinusitis, recurrence not specified, unspecified location Take 1 Tablet by mouth in the morning and 1 Tablet before bedtime. Do all this for 10 days. 20 Tablet 0 04/03/2023 4 documented as of this encounter (statuses as of 04/22/2023) Active Problems Problem Noted Date Diagnosed Date Vitamin D deficiency 01/19/2021 Well adult exam 01/19/2021 Overview: Colonoscopy in 2018 was normal. Mammogram normal in July 2020. Last Pap smear 2012. DEXA in 2018, no indication for treatment, repeat in 7 years. Current mild episode of cristal r depressive disorder without prior episode 03/10/2019 History of uterine cancer 08/28/2016 Overview: 1994. Normal subsequent Pap smears, no longer indicated Ureteral stricture, right 03/02/2014 Hydronephrosis 03/02/2014 Dyslipidemia, goal LDL below 160 12/01/2009 documented as of this encounter (statuses as of 04/22/2023) Resolved Problems Problem Noted Date Diagnosed Date Resolved Date Malignant neoplasm of corpus uteri 08/28/2016 08/28/2016 Depression 05/19/2010 03/10/2019 Dyslipidemia, goal LDL below 160 05/17/2008 03/15/2009 Overview: Per Lipid Taxonomy. Osteoporosis 04/30/2006 05/23/2015 ADVANCE DIRECTIVE INFORMATION 08/02/2004 08/28/2016 Overview: has one at ore buyer informed that she could bring it in to be scanned documented as of this encounter (statuses as of 04/22/2023) Immunizations Name Administration Dates Next Due COVID-19 mRNA, LNP-s, No Pre serve, 2-Dose Series ([employer]) 03/03/2021,07/06/2020,06/15/2020 Covid-19, Mrna, Lnp-s, Pf, B ivalent, 30 Mcg, IM, 12 yrs and above (Pfizer) 02/12/2022 Pneumococcal Conjugate Vacc, 13 Valent (Prevnar) 02/29/2016 Pneumococcal Polysaccharide PPV23 (Pneumovax) 03/04/2017 Seasonal Influenza, PF, 6 M & above, IM , (FluLaval or Fluzone) 01/09/2018,03/04/2017 Seasonal Influenza, Quadriva lent Hd (Fluzone Hd) 12/26/2022,01/24/2022,12/20/2020 Seasonal Influenza, Quadriva lent Hd, 65+ Yrs 01/25/2020 Seasonal Influenza, Quadriva lent, No Preserve, IM 12/19/2015 Seasonal Influenza, Split, I IV3, With Preserve, Inj 05/15/2015,01/12/2014,01/18/2012,12/18,05/19/2010,05/09/2009 Seasonal Influenza, Trivalen t, Adjuvanted, 65+ yrs 03/10/2019 TDAP (age 10 and older)(Boostrix) 08/02/2019 TDAP (age 11 and older)(Adacel) 12/01/2009 documented as of this encounter Social History Tobacco Use Types Packs/Day Years Used Date Smoking Tobacco: Never Smokeless Tobacco: Never Alcohol Use Standard Drinks/Week Comments Not Currently 0 (1 standard drink = 0.6 oz pur e alcohol) PHQ-2 Answer Date Recorded PHQ Adult Total Score 0 12/26/2022 Hunger Vital Sign Answer Date Recorded Within the past 12 months, y ou worried that your food would run out before you got the money to buy more. Never true 12/27/19 23 Within the past 12 months, t he food you bought just didn't last and you didn't have money to get more. Never true 12/26/2022 Sex and Gender Information Value Date Recorded Sex Assigned at Female 09/03/2018 9:25 AM EDT Gender Identity Female 09/03/2018 9:25 AM EDT Sexual Orientation Straight 09/03/2018 9 :25 AM EDT Job Start Date Occupation Industry Not on file Not on file Not on file documented as of this encounter Last Filed Vital Signs Vital Sign Reading Time Taken Comments Blood Pressure 128/52 04/22/2023 8:40 AM EST Pulse 68 04/22/2023 8:40 AM EST Temperature 36.6 C (97.8 F) 04/22/2023 8:23 AM ES T Respiratory Rate 15 04/22/2023 8:40 AM EST Oxygen Saturation 96% 04/22/2023 8:40 AM EST Inhaled Oxygen Concentration - - Weight 77.1 kg (170 lb) 04/22/2023 6:58 AM EST Height 165.1 cm (5' 5") 04/22/2023 6:58 AM EST Body Mass Index 28.29 04/22/2023 6:58 AM EST documented in this encounter Discharge Instructions * Discharge Instr - AVS* Bridger Mcnamara MD - 04/22/2023 8:27 AM EST Expected symptoms after stent placement include bladder pain/spasms, blood in the urine, referred back pain, burning with urination and other bothersome voiding symptoms. The symptoms may worsen withphysical activity. Please contact our office with any fevers, chills, nausea, vomiting or other worrisome changes. Please follow up in the office as scheduled. Complete any prescribed antibiotics as ordered. It is OK to take a shower or bath. No driving within 24 hours of anesthesia or while using narcotic pain medication. documented in this encounter Progress Notes * Bridger Mcnamara MD - 04/22/2023 8:27 AM EST [facility] SURGERY [facility] ENDOSCOPY [address] [address] OUTPATIENT SURGERY DISCHARGE SUMMARY NOTE Name: Melissa Ferreira Location: OR [facility]/ME Date: 04/22/2023 Time: 8:28 AM Surgery Date: 04/22/2023 Procedure: Procedure(s): CYSTOURETHROSCOPY WITH FOREIGN BODY REMOVAL SIMPLE CYSTOURETHROSCOPY WITH INSERTION URETERAL STENT Right Right Surgeon: Surgeon(s): Bridger Mcnamara MD Discharge Diagnosis: Chronic right ureteral stent status post cystoscopy, right retrograde pyelography, right ureteral stent exchange. After examination of this patient, I have determined she is ready for discharge to home when the patient meets criteria. Discharge instructions were given to the patient. documented in this encounter H&P Notes * Bridger Mcnamara MD - 04/22/2023 7:14 AM EST GENERAL HISTORY & PHYSICAL EXAMINATION - Urology Service [facility] ENDOSCOPY [address] [address] Name: Melissa Ferreira Location: OR [facility]/ME Date: 04/22/2023 Time: 7:14 AM Date of H&P Apr 22, 2023 [id number] PCP: MARINA BAIRD [address] [place] [address] [place] [address] [phone] Melissa Ferreira is a 72 year old female, who presents for somewhat delayed right ureteral stent exchange. This was pushed back secondary to a recent sinus infection, since resolved. Patient denies any other significant health difficulties, no new questions. Ureteral stricture: Managed with chronic right indwelling stent for years, at least since 2014. Stent typically exchanged every 6 months. Treated for uterine cancer >20 years ago. Therapy included radiation. @actMED@ Review of patient's allergies indicates: Allergen Reactions Pollen Seasonal allergies Social History: Social History Tobacco Use Smoking status: Never Smokeless tobacco: Never Substance Use Topics Alcohol use: Not Currently Vaping/E-Cigarette Use Vaping/E-Cigarette Use Never User Vaping/E-Cigarette Substances Vaping/E-Cigarette Devices Family History Problem Relation Age of Onset Diabetes Mother Ovarian cancer Mother Cancer Father Pancreatic Diabetes Sister Uterine cancer Sister Hypertension Brother Breast Cancer Cousin (Maternal) 45 Clayton's disease Son No Known Problems Son negative for Dallas's gene Uterine cancer Niece Other (mesothelioma) Uncle (Maternal) Colon cancer No significant family history Past Surgical History: Procedure Laterality Date COLONOSCOPY 03/05 normal COLONOSCOPY, DIAGNOSTIC (RECTUM) 05/27/2017 normal, repeat 10 yrs/COLONOSCOPY FLEXIBLE PROXIMAL DIAGNOSTIC performed by Uziel Andersen DO at ENDOSCOPY [facility] CYSTOSCOPY/INSERTION OF STENT Right 01/14/2015 CYSTOURETHROSCOPY WITH INSERTION URETERAL STENT performed by Arlene Medina MD at OR [facility] CYSTOSCOPY/INSERTION OF STENT 09-23-2015 CYSTOSCOPY/INSERTION OF STENT Right 09/23/2015 CYSTOURETHROSCOPY WITH INSERTION URETERAL STENT performed by Arlene Medina MD at OR [facility] CYSTOSCOPY/INSERTION OF STENT Right 06/21/2017 CYSTOURETHROSCOPY WITH INSERTION URETERAL STENT performed by Arlene Medina MD at OR [facility] CYSTOSCOPY/INSERTION OF STENT Right 12/28/2016 CYSTOURETHROSCOPY WITH INSERTION URETERAL STENT performed by Arlene Medina MD at OR [facility] CYSTOSCOPY/INSERTION OF STENT Right 08/17/2016 CYSTOURETHROSCOPY WITH INSERTION URETERAL STENT performed by Arlene Medina MD at OR [facility] CYSTOSCOPY/INSERTION OF STENT Right 03/02/2016 CYSTOURETHROSCOPY WITH INSERTION URETERAL STENT performed by Arlene Medina MD at OR [facility] CYSTOSCOPY/INSERTION OF STENT Right 12/27/2017 CYSTOURETHROSCOPY WITH INSERTION URETERAL STENT performed by Arlene Medina MD at OR [facility] CYSTOSCOPY/INSERTION OF STENT Right 06/20/2018 CYSTOURETHROSCOPY WITH INSERTION URETERAL STENT performed by Arlene Medina MD at OR [facility] CYSTOSCOPY/INSERTION OF STENT Right 01/09/2019 CYSTOURETHROSCOPY WITH INSERTION URETERAL STENT performed by Arlene Medina MD at OR [facility] CYSTOSCOPY/INSERTION OF STENT Right 07/31/2019 CYSTOURETHROSCOPY WITH INSERTION URETERAL STENT performed by Arlene Medina MD at OR [facility] CYSTOSCOPY/INSERTION OF STENT Right 01/19/2020 CYSTOURETHROSCOPY WITH INSERTION URETERAL STENT performed by Arlene Medina MD at OR [facility] CYSTOSCOPY/INSERTION OF STENT Right 07/05/2020 CYSTOURETHROSCOPY WITH INSERTION URETERAL STENT performed by Arlene Medina MD at OR [facility] CYSTOSCOPY/INSERTION OF STENT Right 01/02/2021 CYSTOURETHROSCOPY WITH INSERTION URETERAL STENT performed by Bridger Mcnamara MD at OR [facility] CYSTOSCOPY/INSERTION OF STENT Right 07/31/2021 CYSTOURETHROSCOPY WITH INSERTION URETERAL STENT performed by Bridger Mcnamara MD at OR [facility] CYSTOSCOPY/INSERTION OF STENT Right 01/15/2022 CYSTOURETHROSCOPY WITH INSERTION URETERAL STENT performed by Bridger Mcnamara MD at OR [facility] CYSTOSCOPY/INSERTION OF STENT Right 06/18/2022 CYSTOURETHROSCOPY WITH INSERTION URETERAL STENT performed by Bridger Mcnamara MD at OR [facility] CYSTOSCOPY/INSERTION OF STENT Right 11/05/2022 CYSTOURETHROSCOPY WITH INSERTION URETERAL STENT performed by Bridger Mcnamara MD at OR [facility] CYSTOSCOPY/REMOVE OBJECT, SIMPLE 05/14/14 Right Stent Removal CYSTOSCOPY/REMOVE OBJECT, SIMPLE Right 01/02/2021 CYSTOURETHROSCOPY WITH FOREIGN BODY REMOVAL SIMPLE performed by Bridger Mcnamara MD at OR [facility] CYSTOSCOPY/REMOVE OBJECT, SIMPLE Right 07/31/2021 CYSTOURETHROSCOPY WITH FOREIGN BODY REMOVAL SIMPLE performed by Bridger Mcnamara MD at OR [facility] CYSTOSCOPY/REMOVE OBJECT, SIMPLE Right 01/15/2022 CYSTOURETHROSCOPY WITH FOREIGN BODY REMOVAL SIMPLE performed by Bridger Mcnamara MD at OR [facility] CYSTOSCOPY/REMOVE OBJECT, SIMPLE Right 06/18/2022 CYSTOURETHROSCOPY WITH FOREIGN BODY REMOVAL SIMPLE performed by Bridger Mcnamara MD at OR [facility] CYSTOSCOPY/REMOVE OBJECT, SIMPLE Right 11/05/2022 CYSTOURETHROSCOPY WITH FOREIGN BODY REMOVAL SIMPLE performed by Bridger Mcnamara MD at OR [facility] PAP SCREEN 08/30 Dr. Geller RADIATION THERAPY MANAGEMENT 25 radiation tx and 3day radiation implants. REMOVAL OF TONSILS, UNDER AGE 12 TOTAL ABD HYSTERECTOMY W/WO REMOVAL OF TUBE(S) 1994 cervical and uterine cancer Past Medical History: Diagnosis Date DEPRESSIVE DISORDER NEC 05/19/2010 Dyslipidemia, goal LDL below 160 12/01/2009 History of uterine cancer 08/28/2016 Malignant neoplasm of corpus uteri (HCC) Patient Active Problem List Diagnosis Code Dyslipidemia, goal LDL below 160 E78.5 Ureteral stricture, right N13.5 Hydronephrosis N13.30 History of uterine cancer Z85.42 Current mild episode of major depressive disorder without prior episode (HCC) F32.0 Vitamin D deficiency E55.9 Well adult exam Z00.00 Constitutional: (-) fever and (-) chills Eyes: (+) corrective lenses Cardiovascular: (-) chest pain Female : (+) see HPI Neurology: (-) negative: no focal neurologic defect Physical Exam Nursing note reviewed. Constitutional: General: She is not in acute distress. Appearance: Normal appearance. She is not ill-appearing or toxic-appearing. HENT: Head: Normocephalic and atraumatic. Right Ear: External ear normal. Left Ear: External ear normal. Nose: Nose normal. Mouth/Throat: Mouth: Mucous membranes are moist. Cardiovascular: Pulses: Normal pulses. Heart sounds: Normal heart sounds. Pulmonary: Effort: Pulmonary effort is normal. Breath sounds: Normal breath sounds. Abdominal: Palpations: Abdomen is soft. Musculoskeletal: General: No deformity or signs of injury. Cervical back: Normal range of motion and neck supple. Skin: General: Skin is warm. Coloration: Skin is not pale. Neurological: General: No focal deficit present. Mental Status: She is alert and oriented to person, place, and time. Psychiatric: Mood and Affect: Mood normal. Behavior: Behavior normal. Impression/Plan: 72-year-old female with chronic right indwelling ureteral stent. Findings reviewed with patient. Will proceed with cystoscopy, right retrograde pyelography, right ureteral stent exchange. Risks and benefits noted, informed consent present in the chart. No new questions. IV Ancef on-call for antibiotic coverage, SCDs for DVT prophylaxis. Bridger Mcnamara MD 7:14 AM 04/22/2023 documented in this encounter Nursing Notes * Faye Steve RN - 04/22/2023 8:52 AM EST Vs stable. Denies nausea and tolerating PO intake. Verbalized understanding of all discharge directions. Patient stable for discharge to home. D/c criteria met. Verbalized readiness for discharge to home. 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 * Faye Steve RN - 04/22/2023 8:23 AM EST Patient received to pacu 2 status post procedure. Patient awake. Denies pain. Denies nausea. Respirations are even and unlabored on room air. NSR on monitor. Abdomen soft and non distended. Vital signs stable. * Donald Sandhu RN - 04/22/2023 7:41 AM EST Ureteral stent (Tria soft with side holes) ([place] scientific) SIZE [id number] REF NO [id number] EXP 09-02-2025 * Lilia Puckett RN - 04/22/2023 7:01 AM EST Surgical consent verified with patient. Patient agrees with listed procedure and verified signature. documented in this encounter OR Notes * OR Surgeon - Bridger Mcnamara MD - 04/22/2023 8:35 AM EST [facility] [address] [address] OPERATIVE REPORT Name: Melissa Ferreira Date: 04/22/2023 Time: 8:36 AM Location: OR [facility] Service: Urology Date of Operation: 04/22/2023 Pre-op Diagnosis: Chronic right ureteral stricture managed with indwelling stent. Post-op Diagnosis: Same. Surgeon: Bridger Mcnamara MD Assistants: None. Anesthesia: monitored anesthesia care with sedation Operation: Cystoscopy, right retrograde pyelography, right stent exchange. Findings: Good stent position after completion of case, cloudy urine in bladder, moderate hydronephrosis on the right-hand side. Specimen and Disposition: Urine for culture and sensitivity. Estimated Blood Loss: Minimal. Fluids: <1000 cc. Urine Output: Not measured. Drains/Implants: 7 Jordanian 24 cm right-sided double-J ureteral stone Complications: None. Postoperative Condition: Stable. Indications and History: Patient is a pleasant 72-year-old female with a history a right indwelling ureteral stent since 2014 for right ureteral stricture for scheduled 5 month stent exchange. Preoperative culture noted to be negative. Patient denies new significant symptoms since her last visit. Perioperative Ancef provided for antibiotic coverage and SCDs used for DVT prophylaxis. Please see H&P and outpatient notes for further details. Stent exchanges slightly delayed secondary to the patient's recent difficulties with sinusitis. Description of Operation: Patient was properly identified and brought into the operative suite after identification of appropriate consent in the chart. monitored anesthesia care with sedation was initiated and patient was prepped and draped in the standard fashion for this procedure. aircraft time clerk-out procedure was followed. Awell lubricated 22 Jordanian rigid cystoscope was introduced through the meatus into the urethra. Urethra demonstrated no abnormalities. Bladder neck was visualized and bladder was entered. Sterile irrigation was used to distend the bladder which was noted to have no tumors papillary lesions, some radiation related blanching and atrophy with grade 1 trabeculation. Moderate mucosal inflammation with some cloudy urine was present. [place] of urine was taken for culture and then bladder was generously irrigated. Bladder was circumferentially inspected. Ureteral orifices were noted to be in the normal anatomic position bilaterally with a right-sided ureteral stent in good position, minimally encrusted. Stent was grasped using stent grasper and brought down to the level of meatus. This was cannulated using a Sensor wire. The sensor tip wire was advanced to the level of the right renal pelvis under fluoroscopic guidance followed by an open- ended catheter. Wire was removed and retrograde pyelography was performed demonstrating a lack of renal dilation with bubble artifact. Wire was replaced followed by a 7 Jordanian, 24 cm double-J ureteral stent. This was appreciated to be in good position inthe kidney on intraoperative fluoroscopy and in the bladder on direct visualization. Some slightly cloudy urine was noted to be draining from the right kidney. Bladder was once again generously irrigated. After this was completed the bladder was drained and cystoscope was removed. Patient toleratedthe procedure well without complications or difficulties. Follow-up care: Outpatient follow-up appointment is confirmed. Intraoperative findings reviewed with the patient's contact. Prescription provided for a short course of Bactrim seen the appearance of the patient's urine. Patient is instructed to contact our service should she note any fevers, chills, nausea, vomiting or other difficulties in the postoperative period. documented in this encounter Plan of Treatment Upcoming Encounters Date Type Department Care Team (Late st Contact Info) Description 05/06/2023 4:15 PM EST Office Visit Urology, [facility] [address] [facility] [place] [address] Bridger Mcnamara MD [address] [place] [address] [place] [address] 01/01/2024 1:00 PM EDT Nurse Only Ancillary [facility] [address] [facility] [place] [address] [place], Nurse Annual Wellness [facility] [address] [facility] [place] [address] 02/05/2024 10:00 AM EST Office Visit Family Practice [facility] [address] [facility] [place] [address] Marina Baird MD 132 [facility] [place] [id number] Pending Results Name Type Priority Associated Diagnoses Date /Time CULTURE, URINE, QUANTITATIVE Lab Routine Stricture of ureter 04/22/2023 8:12 AM EST Scheduled Orders Name Type Priority Associated Diagnoses Orde r Schedule CULTURE, URINE, QUANTITATIVE Lab Routine Stricture of ureter Release Upon Ordering for 1 Occurrences starting 04/22/2023 Scheduled Procedures Name Priority Associated Diagnoses Date/Ti me CYSTOURETHROSCOPY WITH FOREI GN BODY REMOVAL SIMPLE Stricture of ureter 04/22/2023 7:00 AM EST CYSTOURETHROSCOPY WITH INSERTION URETERAL STENT Stricture of ureter 04/22/2023 7:00 AM EST COLONOSCOPY FLEXIBLE PROXIMA L DIAGNOSTIC Recall Encounter for screening colonoscopy Health Maintenance Due Date Last Done Comments Cologuard 08/25/1995 Sigmoidoscopy 08/25/1995 Zoster Vaccines (1 of 2) 2000 Fecal Occult Blood Test 09/05/2001 09/05/2000 COVID-19 Vaccine ( season) 2022 02/12/2022, 03/03/2021, 07/06/2020, Additional history exists Depression Screening 12/27/2023 12/26/2022 Mammogram 02/28/2024 02/27/2023, 11/0 11/2021, 02/07/2022, Additional history exists DXA Scan 04/16/2025 04/16/2018, 07/31, 06/03/2009, Additional history exists Lipid Panel 01/24/2027 01/24/2022, 12/30, 03/10/2019, Additional history exists Colonoscopy 05/27/2027 05/27/2017, 05/03, 03/08/2005 Colorectal Cancer Screening 05/27/2027 DTaP,Tdap,and Td Vaccines (3 - Td or Tdap) 08/01/2029 08/02/2019, 12/01/2009, 08/10/2002 Pneumococcal Vaccine: 65+ Years Completed 03/04/2017, 02/29/2016 Influenza Vaccine (FLU shot) Completed , 01/24/2022, 12/20/2020, Additional history exists GARDASIL-HPV IMMUNIZATION SERIES Aged Out No longer eligible based on patient's age to complete this topic Hepatitis B Aged Out No longer eligi ble based on patient's age to complete this topic MENINGOCOCCAL (MENACTRA/MENVEO) Aged Out No longer eligible based on patient's age to complete this topic documented as of this encounter Medical Devices Implanted Type Area Delivery Tech Device Identifier Shelf Expiration Date Model / Serial / Lot Inlay [place] Ureteral Stent Implanted:Qty: 1 on 04/23/2014 by Arlene Medina MD at OR [facility] Right: Ureter [employer] 05/01/2017 [id number] / / [id number] Bard Ureteral Stent 6x26 Implanted:Qty: 1 on 07/02/2014 by Arlene Medina MD at OR [facility] Right: Ureter 07/29/2018 [id number] / / [id number] documented as of this encounter Procedures Procedure Name Priority Date/Time Associated Diagnosis Comments XR INTRA-OP C-ARM CASE Routine 04/22/2023 8:23 AM EST documented in this encounter Results * XR INTRA-OP C-ARM CASE (04/22/2023 8:23 AM EST) Narrative Scheduling, Silent - 04/22/2023 8:23 AM EST This procedure will not be read by a Radiologist. Please see operative note. Bridger Mcnamara MD RADIOLOGY (RAD G ENERAL) documented in this encounter Visit Diagnoses Diagnosis Ureteral stricture, right- Primary Stricture or kinking of ureter Stricture of ureter Stricture or kinking of ureter documented in this encounter Administered Medications Inactive Administered Medications - up to 3 most recent administrations Medication Order MAR Action Action Date Dose Rate Site ceFAZolin in dextrose (Ancef) ivpb 2 g 2 g, IV Piggyback, PREOP, 1 dose, First dose on Sat04/22/23 at 0730, Administer 60 minutes prior to skin incision, Pre-Op New Bag 04/22/2023 7:55 AM EST 2 g 100 mL/hr isolyte-S pH 7.4 infusion Intravenous, Plasma-LYTE 148, isolyte-S, and isolyte-S pH 7.4 are considered equivalent - including for MAR barcode scanning., CONTINUOUS, Starting on Sat04/22/23 at 0730, Until Sat04/22/23 at 1253, Pre-Op Continue from Pre-Op 04/22/2023 7:53 AM EST 100 mL/hr New Bag 04/22/2023 7:07 AM EST 1,000 mL 100 mL/hr documented in this encounter Active and Recently Administered Medications Times are shown in EST. Scheduled Medication Order 04/20/2023 04/21/2023 04/22/2023 ceFAZolin in dextrose (Ancef) ivpb 2 g (COMPLETED) 2 g, IV Piggyback, PREOP, 1 dose, First dose on Sat04/22/23 at 0730, Administer 60 minutes prior to skin incision, Pre-Op 0755 (New Bag - Prov ider: Lilia Puckett RN) Continuous Medication Order 04/20/2023 04/21/2023 04/22/2023 isolyte-S pH 7.4 infusion Intravenous, Plasma-LYTE 148, isolyte-S, and isolyte-S pH 7.4 are considered equivalent - including for MAR barcode scanning., CONTINUOUS, Starting on Sat04/22/23 at 0730, Until Sat04/22/23 at 1253, Pre-Op 0707 (New Bag - Prov ider: Lilia Puckett RN)0753 (Continue from Pre-Op - Provider: Payal Kilpatrick CRNA)0819 (Stopped - Provider: Payal Kilpatrick CRNA) isolyte-S pH 7.4 infusion Intravenous, at 100 mL/hr, For Periop use. Plasma-LYTE 148, isolyte-S, and isolyte-S pH 7.4 are considered equivalent - including for MAR barcode scanning., CONTINUOUS, Starting on Sat04/22/23 at 0915, Until Sat04/22/23 at 1253, Post-op PRN Medication Order 04/20/2023 04/21/2023 04/22/2023 Iohexol (Omnipaque 180) inj (CANCELED) ONCE PRN INTRA PROCEDURE, Starting on Sat04/22/23 at 0808, Until Sat04/22/23 at 0818, Intra-Op 0808 (Given - Provid er: Bridger Mcnamara MD - Comment: 10ml omnipaque mixed with 10ml n/s) oxyCODONE-acetaminophen 5-325 mg per tab (Percocet) 1 Tablet 1 Tablet, Oral, Q4H PRN Pain, Moderate, Starting on Sat04/22/23 at 0831, Until Sat04/22/23 at 1253, Maximum of 4 grams (4000 mg) of acetaminophen per day, Post-op sodium chloride IR 0.9 % irrigation (CANCELED) ONCE PRN INTRA PROCEDURE, Starting on Sat04/22/23 at 0807, Until Sat04/22/23 at 0818, Intra-Op 0807 (Given - Provid er: Bridger Mcnamara MD - Comment: ureter) documented in this encounter Advance Directives Latest Code Status on File Code Status Date Activated Date Inactivated Comments Full Code 04/22/2023 8:33 AM 04/22/2023 12:53 PM This order reflects the patients wishes and were consensually agreed upon. Question Answer Comments Discussion of Advance Directives occurred with: Patient Code Status History Code Status Date Activated Date Inactivated Comments Full Code 04/22/2023 6:47 AM 04/22/2023 8:33 AM This order reflects the patients wishes and were consensually agreed upon. Question Answer Comments Discussion of Advance Directives occurred with: Patient Full Code 11/05/2022 10:19 AM 11/05/2022 2:57 PM This o rder reflects the patients wishes and were consensually agreed upon. Question Answer Comments Discussion of Advance Directives occurred with: Patient Full Code 11/05/2022 9:21 AM 11/05/2022 10:19 AM This o rder reflects the patients wishes and were consensually agreed upon. Question Answer Comments Discussion of Advance Directives occurred with: Patient Full Code 06/18/2022 9:04 AM 06/18/2022 1:40 PM This order reflects the patients wishes and were consensually agreed upon. Question Answer Comments Discussion of Advance Directives occurred with: Patient Care Teams Food And Nutrition Services Supervisor Relationship Specialty Start Date End Date Marina Baird MD [address] [place] [address] PCP - General Internal Medicine 01/02/21 documented as of this encounter
--- OUTSIDE RECORDS SUMMARY | 2023-07-11 16:35 | External Medical Summary ---
Author Name Unknown Address Unknown Organization K01:LABORATORY [facility] - [address] [place] [id number] Laboratory Report Ordering Provider Test Date Status LOLY JAVED 04/22/2023 08:12:00 Final Observation Date Value Abnormality Reference (Units ) Status Bacteria identified in Specimen by Culture 04/22/2023 08:12:00 < 100 colonies/ml (no growth) Final Test: Culture, Urine, Quanti tative
Specimen Source: Urine, Cystoscopy
Specimen Type: Urine
Specimen Date: 04/22/2023 8:12 AM
Result Date: 04/23/2023 8:54 AM
Result Status: Final result
Resulting Lab: [facility]
[address]
[place] [address]

CULTURE

< 100 colonies/ml (no growth)

null Performing Location LABORATORY [facility] - [address] [facility] [address]
--- OUTSIDE RECORDS SUMMARY | 2023-07-11 16:35 | External Medical Summary | Summary of Care ---
Author Name Unknown Organization [facility] Address [address] [place] [facility] [place] [place] [address] Phone [phone] Care Team Providers Care Access Control Officer Name Role Phone Marina Baird MD Primary Care Provider Reason for Visit * Reason Comments Post-Op Encounter Details Date Type Department Care Team (Late st Contact Info) Description 05/06/2023 4:15 PM EST Office Visit Urology, [facility] [address] [facility] [place] [address] Bridger Mcnamara MD [address] [facility] [address] [place] [address] Ureteral stricture, right*; Acute UTI Allergies Active Allergy Reactions Criticality Noted Date Comments Pollen 12/20/2020 Seasonal allergies documented as of this encounter (statuses as of 05/06/2023) Medications Medication Sig Dispensed Refills Start Date End Date Status Calcium Carb-Cholecalciferol 500-600 MG-UNIT Oral Tablet Take 1 Tablet by mouth in the morning. 0 Active Omeprazole 20 MG Oral Capsule Delayed Release (PriLOSEC)Indication s:Gastroesophageal reflux disease without esophagitis Take by mouth 1 Capsule in the morning. 1 hour before the first meal of the day. 30 Capsule 5 01/24/2022 Active Additional Information Patient not taking.Reported on 04/22/2023 Sertraline HCl 50 MG Oral Tablet (Zoloft)Indications: Current mild episode of major depressive disorder without prior episode (HCC) Take 1 Tablet by mouth at bedtime. 90 Tablet 3 01/30/2023 Active Atorvastatin Calcium 40 MG Oral Tablet (Lipitor)Indications :Dyslipidemia, goal LDL below 130 Take 1 Tablet by mouth at bedtime. 90 Tablet 3 01/30/2023 Active Zoster Vac Recomb Adjuvanted 50 MCG/0.5ML Intramuscular Suspension Reconstituted (Shingrix)Indication s:Need for zoster vaccination Inject 0.5 mL into a large muscle now and repeat dose in 60 to 180 days 1 Each 1 01/30/2023 Active Sulfamethoxazole-Tri methoprim 800-160 MG Oral Tablet (Bactrim DS) Take 1 Tablet by mouth in the morning and 1 Tablet before bedtime. 8 Tablet 0 04/22/2023 Active documented as of this encounter (statuses as of 05/06/2023) Active Problems Problem Noted Date Diagnosed Date Vitamin D deficiency 01/19/2021 Well adult exam 01/19/2021 Overview: Colonoscopy in 2017 was normal. Mammogram normal in July 2020. [...] as of this encounter (statuses as of 05/06/2023) Resolved Problems Problem Noted Date Diagnosed Date Resolved Date Malignant neoplasm of corpus uteri 08/28/2016 08/28/2016 Depression 05/19/2010 03/10/2019 Dyslipidemia, goal LDL below 160 05/17/2008 03/15/2009 Overview: Per Lipid Taxonomy. Osteoporosis 04/30/2006 05/23/2015 ADVANCE DIRECTIVE INFORMATION 08/02/2004 08/28/2016 Overview: has one at [facility]ware systems architect informed that she could bring it in to be scanned documented as of this encounter (statuses as of 05/06/2023) Immunizations Name Administration Dates Next Due COVID-19 mRNA, LNP-s, No Pre serve, 2-Dose Series ([email or web address]) 03/03/2021,07/06/2020,06/15/2020 Covid-19, Mrna, Lnp-s, Pf, B ivalent, [...] 9:25 AM EDT Sexual Orientation Straight 09/03/2018 9: 25 AM EDT Job Start Date Occupation Industry Not on file Not on file Not on file documented as of this encounter Progress Notes * Bridger Mcnamara MD - 05/06/2023 4:15 PM EST [id number] PCP: MARINA BAIRD [address] [facility] [place] [address] [phone] Melissa Ferreira is a 72 year old female, who presents for symptomatic check after stent exchange. She denies bothersome voiding symptoms, tolerated the procedure well. Ureteral stricture: Managed with chronic right indwelling stent for years, at least since 2014. Stent typically exchanged every 6 months, moved to 5 months due to malfunction. Treated for uterine cancer >20 years ago. Therapy included radiation Creatinine Results: Lab Results Component Value Date/Time CREATININE - [facility] 0.9 04/02/2023 10:43 AM CREATININE - [facility] 0.8 06/11/2022 02:47 PM CREATININE - [facility] 0.8 07/12/2021 11:10 AM CREATININE - [facility] 0.9 01/11/2020 09:28 AM CREATININE - [facility] 0.8 12/22/2018 11:07 AM CREATININE - [facility] 0.8 09/02/2017 08:31 AM Current Outpatient Medications Medication Sig Dispense Refill Calcium Carb-Cholecalciferol 500-600 MG-UNIT Oral Tablet Take 1 Tablet by mouth in the morning. (Patient not taking: Reported on 04/22/2023) Omeprazole 20 MG Oral Capsule Delayed Release (PriLOSEC) Take by mouth 1 Capsule in the morning. 1 hour before the first meal of the day. (Patient not taking: Reported on 04/22/2023) 30 Capsule 5 Sertraline HCl 50 MG Oral Tablet (Zoloft) Take 1 Tablet by mouth at bedtime. 90 Tablet 3 Atorvastatin Calcium 40 MG Oral Tablet (Lipitor) Take 1 Tablet by mouth at bedtime. 90 Tablet 3 Zoster Vac Recomb Adjuvanted 50 MCG/0.5ML Intramuscular Suspension Reconstituted (Shingrix) Inject 0.5 mL into a large muscle now and repeat dose in 60 to 180 days 1 Each 1 Sulfamethoxazole-Trimethoprim 800-160 MG Oral Tablet (Bactrim DS) Take 1 Tablet by mouth in the morning and 1 Tablet before bedtime. 8 Tablet 0 No current facility-administered medications for this visit. Review of patient's allergies indicates: Allergen Reactions [...] Hypertension Brother Breast Cancer Cousin (Maternal) 45 [place]'s disease Son No Known Problems Son negative for [place]'s gene Uterine cancer Niece Other (mesothelioma) Uncle (Maternal) Colon cancer No significant family history Past Surgical History: Procedure Laterality Date COLONOSCOPY 03/05 normal COLONOSCOPY, DIAGNOSTIC (RECTUM) 05/27/2017 normal, repeat 10 yrs/COLONOSCOPY FLEXIBLE PROXIMAL DIAGNOSTIC performed by Uziel Andersen DO at ENDOSCOPY [facility] CYSTOSCOPY/INSERTION OF STENT Right 01/14/2015 CYSTOURETHROSCOPY WITH INSERTION URETERAL STENT performed by Arlene Medina MD at OR [facility] CYSTOSCOPY/INSERTION OF STENT 09-23-2015 CYSTOSCOPY/INSERTION OF STENT Right 09/23/2015 CYSTOURETHROSCOPY WITH INSERTION URETERAL STENT performed by Arlene Medina MD at OR [facility] CYSTOSCOPY/INSERTION OF STENT Right 06/21/2017 CYSTOURETHROSCOPY WITH INSERTION URETERAL STENT performed by Arlene Medina MD at OR [facility] CYSTOSCOPY/INSERTION OF STENT Right 12/28/2016 CYSTOURETHROSCOPY WITH INSERTION URETERAL STENT performed by Arlene Medina MD at OR [facility] CYSTOSCOPY/INSERTION OF STENT Right 08/17/2016 CYSTOURETHROSCOPY WITH INSERTION URETERAL STENT performed by Arlene Medina MD at OR [facility] CYSTOSCOPY/INSERTION OF STENT Right 03/02/2016 CYSTOURETHROSCOPY WITH INSERTION URETERAL STENT performed by Arlene Medina MD at OR [facility] CYSTOSCOPY/INSERTION OF STENT Right 12/27/2017 CYSTOURETHROSCOPY WITH INSERTION URETERAL STENT performed by Arlene Medina MD at OR [facility] CYSTOSCOPY/INSERTION OF STENT Right 06/20/2018 CYSTOURETHROSCOPY WITH INSERTION URETERAL STENT performed by Arlene Medina MD at OR [facility] CYSTOSCOPY/INSERTION OF STENT Right 01/09/2019 CYSTOURETHROSCOPY WITH INSERTION URETERAL STENT performed by Arlene Medina MD at OR [facility] CYSTOSCOPY/INSERTION OF STENT Right 07/31/2019 CYSTOURETHROSCOPY WITH INSERTION URETERAL STENT performed by Arlene Medina MD at OR [facility] CYSTOSCOPY/INSERTION OF STENT Right 01/19/2020 CYSTOURETHROSCOPY WITH INSERTION URETERAL STENT performed by Arlene Medina MD at OR [facility] CYSTOSCOPY/INSERTION OF STENT Right 07/05/2020 CYSTOURETHROSCOPY WITH INSERTION URETERAL STENT performed by Arlene Medina MD at OR [facility] CYSTOSCOPY/INSERTION OF STENT Right 01/02/2021 CYSTOURETHROSCOPY WITH INSERTION URETERAL STENT performed by Bridger Mcnamara MD at OR [facility] CYSTOSCOPY/INSERTION OF STENT Right 07/31/2021 CYSTOURETHROSCOPY WITH INSERTION URETERAL STENT performed by Bridger Mcnamara MD at OR [facility] CYSTOSCOPY/INSERTION OF STENT Right 01/15/2022 CYSTOURETHROSCOPY WITH INSERTION URETERAL STENT performed by Bridger Mcnamara MD at OR [facility] CYSTOSCOPY/INSERTION OF STENT Right 06/18/2022 CYSTOURETHROSCOPY WITH INSERTION URETERAL STENT performed by Bridger Mcnamara MD at OR [facility] CYSTOSCOPY/INSERTION OF STENT Right 11/05/2022 CYSTOURETHROSCOPY WITH INSERTION URETERAL STENT performed by Bridger Mcnamara MD at OR [facility] CYSTOSCOPY/INSERTION OF STENT Right 04/22/2023 CYSTOURETHROSCOPY WITH INSERTION URETERAL STENT performed by Bridger Mcnamara MD at OR [facility] CYSTOSCOPY/REMOVE OBJECT, SIMPLE 05/14/14 Right Stent Removal CYSTOSCOPY/REMOVE OBJECT, SIMPLE Right 01/02/2021 CYSTOURETHROSCOPY WITH FOREIGN BODY REMOVAL SIMPLE performed by Bridger Mcnamara MD at OR [facility] CYSTOSCOPY/REMOVE OBJECT, SIMPLE Right 07/31/2021 CYSTOURETHROSCOPY WITH FOREIGN BODY REMOVAL SIMPLE performed by Bridger Mcnamara MD at OR [facility] CYSTOSCOPY/REMOVE OBJECT, SIMPLE Right 01/15/2022 CYSTOURETHROSCOPY WITH FOREIGN BODY REMOVAL SIMPLE performed by Bridger Mcnamara MD at OR [facility] CYSTOSCOPY/REMOVE OBJECT, SIMPLE Right 06/18/2022 CYSTOURETHROSCOPY WITH FOREIGN BODY REMOVAL SIMPLE performed by Bridger Mcnamara MD at OR [facility] CYSTOSCOPY/REMOVE OBJECT, SIMPLE Right 11/05/2022 CYSTOURETHROSCOPY WITH FOREIGN BODY REMOVAL SIMPLE performed by Bridger Mcnamara MD at OR [facility] CYSTOSCOPY/REMOVE OBJECT, SIMPLE Right 04/22/2023 CYSTOURETHROSCOPY WITH FOREIGN BODY REMOVAL SIMPLE performed by Bridger Mcnamara MD at OR [facility] PAP SCREEN 08/30 Dr. Geller RADIATION THERAPY [...] Z00.00 Constitutional: (-) fever and (-) chills Cardiovascular: (-) chest pain Female : (+) see HPI Neurology: (-) negative: no focal neurologic defect Psychiatry: (-) negative: no depression or anxiety Physical Exam Nursing note reviewed. Constitutional: General: She is not in acute distress. Appearance: Normal appearance. She is not toxic-appearing. HENT: Head: Normocephalic and atraumatic. Right Ear: External ear normal. Left Ear: External ear normal. Nose: Nose normal. Mouth/Throat: Mouth: Mucous membranes are moist. Cardiovascular: Pulses: Normal pulses. Pulmonary: Effort: Pulmonary effort is normal. Abdominal: Palpations: Abdomen is soft. Musculoskeletal: General: No deformity or signs of injury. Cervical back: Normal range of motion and neck supple. Skin: General: Skin is warm. Coloration: Skin is not pale. Neurological: General: No focal deficit present. Mental Status: She is alert and oriented to person, place, and time. Psychiatric: Mood and Affect: Mood normal. Behavior: Behavior normal. Impression/Plan: 72 yo female with right ureteral stone for chronic stricture. We are pleased with continued stent tolerance. Will continue with 5 month exchanges - will be due late Aug 2023, will see in office within a few weeks preop for paperwork. Above content is personallyreviewed. Patient vocalizes good understanding of the treatment plan. Bridger Mcnamara MD 2:45 PM 05/06/2023 documented in this encounter Nursing Notes * Kiya Rojas LPN - 05/06/2023 4:07 PM EST Postop stent exchange 04/22 No concerns documented in this encounter Plan of Treatment Upcoming Encounters Date Type Department Care Team (Late st Contact Info) Description 08/21/2023 3:45 PM EDT Office Visit Urology, [facility] [address] [facility] [place] [address] Bridger Mcnamara MD [address] [place] [address] 01/01/2024 1:00 PM EDT Nurse Only Ancillary [facility] [address] [facility] [place] [address] [facility], Nurse Annual Wellness [facility] [address] [facility] [place] [address] 02/05/2024 10:00 AM EST Office Visit Family Practice [facility] [address] [facility] [place] [address] Marina Baird MD [address] [facility] [place] [address] Scheduled Procedures Name Priority Associated Diagnoses Date/Ti me COLONOSCOPY FLEXIBLE PROXIMA L DIAGNOSTIC Recall Encounter [...] this encounter Medical Devices Implanted Type Area Lens Cutter Device Identifier Shelf Expiration Date Model / Serial / Lot Inlay Fletcher Ureteral Stent Implanted:Qty: 1 on 04/23/2014 by Arlene Medina MD at OR [facility] Right: Ureter [employer] 05/01/2017 [id number] / / [id number] Bard Ureteral Stent 6x26 Implanted:Qty: 1 on 07/02/2014 by Arlene Medina MD at OR [facility] Right: Ureter 07/29/2018 [id number] / / [id number] documented as of this encounter Visit Diagnoses Diagnosis Ureteral stricture, right- Primary Stricture or kinking of ureter Acute UTI Urinary tract infection, site not specified documented in this encounter Advance Directives Latest [...] Advance Directives occurred with: Patient Care Teams Access Control Officer Relationship Specialty Start Date End Date Marina Baird MD [address] [place] [address] PCP - General Internal Medicine 01/02/21 documented as of this encounter
--- OUTSIDE RECORDS SUMMARY | 2023-07-11 16:36 | External Medical Summary | Summary of Care ---
Author Name Unknown Organization [facility] Address [address] [facility] [place] [address] Phone [phone] Care Team Providers Care Cask Maker Name Role Phone Marina Baird MD Primary Care Provider Reason for Visit * Reason Comments Acute X 2 weeks, sinus con gestion, drainage. Has appt for replacement of kidney stent on Saturday, and would like to get the illness controlled before then, or they will cancel procedure. Encounter Details Date Type Department Care Team (Late st Contact Info) Description 04/03/2023 9:40 AM EST Office Visit Family [facility] [address] [place] [address] Doc Quinn DO [address] [place] [address] Acute sinusitis, recurrence not specified, unspecified location*; Current mild episode of major depressive disorder without prior episode (HCC); Ureteral stricture, right Allergies Active Allergy Reactions Criticality Noted Date Comments Pollen 12/20/2020 Seasonal allergies documented as of this encounter (statuses as of 04/03/2023) Medications Medication Sig Dispensed Refills Start Date End Date Status Calcium Carb-Cholecalcifero l 500-600 MG-UNIT Oral Tablet Take 1 Tablet by mouth in the morning. 0 Active Omeprazole 20 MG Oral Capsule Delayed Release (PriLOSEC)Indicatio ns:Gastroesophageal reflux disease without esophagitis Take by mouth 1 Capsule in the morning. 1 hour before the first meal of the day. 30 Capsule 5 01/24/2022 Active Sertraline HCl 50 MG Oral Tablet (Zoloft)Indications [...] 180 days 1 Each 1 01/30/2023 Active Additional Information Patient not taking.Reported on 04/03/2023 Amoxicillin-Pot Clavulanate 875-125 MG Oral Tablet (Augmentin)Indicati ons:Acute sinusitis, recurrence not specified, unspecified location Take 1 Tablet by mouth in the morning and 1 Tablet before bedtime. Do all this for 10 days. 20 Tablet 0 04/03/2023 04/13/2023 Active documented as of this encounter (statuses as of 04/03/2023) Active Problems Problem Noted Date Diagnosed Date [...] as of this encounter (statuses as of 04/03/2023) Resolved Problems Problem Noted Date Diagnosed Date Resolved Date Malignant neoplasm of corpus uteri 08/28/2016 08/28/2016 Depression 05/19/2010 03/10/2019 Dyslipidemia, goal LDL below 160 05/17/2008 03/15/2009 Overview: Per Lipid Taxonomy. Osteoporosis 04/30/2006 05/23/2015 ADVANCE DIRECTIVE INFORMATION 08/02/2004 08/28/2016 Overview: has one at support team member informed that she could bring it in to be scanned documented as of this encounter (statuses as of 04/03/2023) Immunizations Name Administration Dates Next Due COVID-19 mRNA, LNP-s, No Pre serve, 2-Dose Series (Pfizer) 03/03/2021,07/06/2020,06/15/2020 Covid-19, Mrna, Lnp-s, Pf, B ivalent, [...] Influenza, Trivalen t, Adjuvanted, 65+ yrs 03/10/2019 TD - Tetanus/Diptheria (ADULT) 08/10/2002 TDAP (age 10 and older)(Boostrix) 08/02/2019 TDAP [...] Sign Reading Time Taken Comments Blood Pressure 124/62 04/03/2023 9:41 AM EST Pulse 60 04/03/2023 9:41 AM EST Temperature 35.8 C (96.4 F) 04/03/2023 9:41 AM ES T Respiratory Rate - - Oxygen Saturation - - Inhaled Oxygen Concentration - - Weight - - Height - - Body Mass Index - - documented in this encounter Progress Notes * Doc Quinn, DO - 04/03/2023 9:47 AM EST Subjective: Melissa Ferreira is a 72 year old female. Chief Complaint Patient presents with Acute X 2 weeks, sinus congestion, drainage. Has appt for replacement of kidney stent on Saturday, and would like to get the illness controlled before then, or they will cancel procedure. There are no exam notes on file for this visit. 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 Omeprazole 20 MG Oral Capsule Delayed Release (PriLOSEC) Take by mouth 1 Capsule in the morning. 1 hour before the first meal of the day. 30 Capsule 5 Sertraline HCl 50 MG Oral Tablet (Zoloft) Take 1 Tablet by mouth at bedtime. 90 Tablet 3 Atorvastatin Calcium 40 MG Oral Tablet (Lipitor) Take 1 Tablet by mouth at bedtime. 90 Tablet 3 Zoster Vac Recomb Adjuvanted 50 MCG/0.5ML Intramuscular Suspension Reconstituted (Shingrix) Inject 0.5 mL into a large muscle now and repeat dose in 60 to 180 days (Patient not taking: Reported on 04/03/2023) 1 Each 1 No current facility-administered medications for this visit. Past Medical History: Diagnosis Date DEPRESSIVE DISORDER NEC 05/19/2010 Dyslipidemia, goal LDL below 160 12/01/2009 History of uterine cancer 08/28/2016 Malignant neoplasm of corpus uteri (HCC) Past Surgical History: Procedure Laterality Date COLONOSCOPY 03/05 normal COLONOSCOPY, DIAGNOSTIC (RECTUM) 05/27/2017 normal, repeat 10 yrs/COLONOSCOPY FLEXIBLE PROXIMAL DIAGNOSTIC performed by Uziel Andersen DO at ENDOSCOPY [facility] CYSTOSCOPY/INSERTION OF STENT Right 01/14/2015 CYSTOURETHROSCOPY WITH INSERTION URETERAL STENT performed by Arlene Medina MD at OR [facility] CYSTOSCOPY/INSERTION OF STENT 09-23-2015 CYSTOSCOPY/INSERTION OF STENT Right 09/23/2015 CYSTOURETHROSCOPY WITH INSERTION URETERAL STENT performed by Arlene Medina MD at OR [facility] CYSTOSCOPY/INSERTION OF STENT Right 06/21/2017 CYSTOURETHROSCOPY WITH INSERTION URETERAL STENT performed by Arlene Medina MD at OR [facility] CYSTOSCOPY/INSERTION OF STENT Right 12/28/2016 CYSTOURETHROSCOPY WITH INSERTION URETERAL STENT performed by Arlene Medina MD at OR [facility] CYSTOSCOPY/INSERTION OF STENT Right 08/17/2016 CYSTOURETHROSCOPY WITH INSERTION URETERAL STENT performed by Arlene Medina MD at OR [facility] CYSTOSCOPY/INSERTION OF STENT Right 03/02/2016 CYSTOURETHROSCOPY WITH INSERTION URETERAL STENT performed by Arlene Medina MD at OR [facility] CYSTOSCOPY/INSERTION OF STENT Right 12/27/2017 CYSTOURETHROSCOPY WITH INSERTION URETERAL STENT performed by Arlene Medina MD at OR [facility] CYSTOSCOPY/INSERTION OF STENT Right 06/20/2018 CYSTOURETHROSCOPY WITH INSERTION URETERAL STENT performed by Arlene Medina MD at OR [facility] CYSTOSCOPY/INSERTION OF STENT Right 01/09/2019 CYSTOURETHROSCOPY WITH INSERTION URETERAL STENT performed by Arlene Medina MD at OR [facility] CYSTOSCOPY/INSERTION OF STENT Right 07/31/2019 CYSTOURETHROSCOPY WITH INSERTION URETERAL STENT performed by Arlene Medina MD at OR [facility] CYSTOSCOPY/INSERTION OF STENT Right 01/19/2020 CYSTOURETHROSCOPY WITH INSERTION URETERAL STENT performed by Arlene Medina MD at OR [facility] CYSTOSCOPY/INSERTION OF STENT Right 07/05/2020 CYSTOURETHROSCOPY WITH INSERTION URETERAL STENT performed by Arlene Medina MD at OR [facility] CYSTOSCOPY/INSERTION OF STENT Right 01/02/2021 CYSTOURETHROSCOPY WITH INSERTION URETERAL STENT performed by Bridger Mcnamara MD at OR [facility] CYSTOSCOPY/INSERTION OF STENT Right 07/31/2021 CYSTOURETHROSCOPY WITH INSERTION URETERAL STENT performed by Bridger Mcnamara MD at OR [facility] CYSTOSCOPY/INSERTION OF STENT Right 01/15/2022 CYSTOURETHROSCOPY WITH INSERTION URETERAL STENT performed by Bridger Mcnamara MD at OR [facility] CYSTOSCOPY/INSERTION OF STENT Right 06/18/2022 CYSTOURETHROSCOPY WITH INSERTION URETERAL STENT performed by Bridger Mcnamara MD at OR [facility] CYSTOSCOPY/INSERTION OF STENT Right 11/05/2022 CYSTOURETHROSCOPY WITH INSERTION URETERAL STENT performed by Bridger Mcnamara MD at OR [facility] CYSTOSCOPY/REMOVE OBJECT, SIMPLE 05/14/14 Right Stent Removal CYSTOSCOPY/REMOVE OBJECT, SIMPLE Right 01/02/2021 CYSTOURETHROSCOPY WITH FOREIGN BODY REMOVAL SIMPLE performed by Bridger Mcnamara MD at OR [facility] CYSTOSCOPY/REMOVE OBJECT, SIMPLE Right 07/31/2021 CYSTOURETHROSCOPY WITH FOREIGN BODY REMOVAL SIMPLE performed by Bridger Mcnamara MD at OR [facility] CYSTOSCOPY/REMOVE OBJECT, SIMPLE Right 01/15/2022 CYSTOURETHROSCOPY WITH FOREIGN BODY REMOVAL SIMPLE performed by Bridger Mcnamara MD at OR [facility] CYSTOSCOPY/REMOVE OBJECT, SIMPLE Right 06/18/2022 CYSTOURETHROSCOPY WITH FOREIGN BODY REMOVAL SIMPLE performed by Bridger Mcnamara MD at OR [facility] CYSTOSCOPY/REMOVE OBJECT, SIMPLE Right 11/05/2022 CYSTOURETHROSCOPY WITH FOREIGN BODY REMOVAL SIMPLE performed by Bridger Mcnamara MD at OR [facility] PAP SCREEN 08/30 Dr. Geller RADIATION THERAPY MANAGEMENT 25 radiation tx and 3day radiation implants. REMOVAL OF TONSILS, UNDER AGE 12 TOTAL ABD HYSTERECTOMY W/WO REMOVAL OF TUBE(S) 1994 cervical and uterine cancer Review of patient's allergies indicates: Allergen Reactions Pollen Seasonal allergies Family History Problem Relation Age of Onset Diabetes Mother Ovarian cancer Mother Cancer Father Pancreatic Diabetes Sister Uterine cancer Sister Hypertension Brother Breast Cancer Cousin (Maternal) 45 Curly's disease Son No Known Problems Son negative for Vigo's gene Uterine cancer Niece Other (mesothelioma) Uncle (Maternal) Colon cancer No significant family history Family Status Relation Status Mo Fa Sis Alive Bro Alive MCOUS Alive Son Alive Son Alive Niece Alive MUNC Alive No history (Not Specified) Social History Socioeconomic History Marital status: Spouse name: Not on file Number of children: Not on file Years of education: Not on file Highest education level: Not on file 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 Employer: [employer] Tobacco Use Smoking status: Never Smokeless tobacco: Never Vaping Use Vaping Use: Never used Substance and Sexual Activity Alcohol use: Not Currently Drug use: No Sexual activity: Not Currently Other Topics Concern Not on file Social History Narrative Not on file Social Determinants of Health Financial Resource Strain: Not on file Food Insecurity: No Food Insecurity (12/26/2022) Hunger Vital Sign Worried About Running Out of Food in the Last Year: Never true Ran Out of Food in the Last Year: Never true Transportation Needs: Not on file Physical Activity: Not on file Stress: Not on file Social Connections: Not on file Intimate Partner Violence: Not on file Housing Stability: Not on file Review of Systems: As per HPI all other ROS negative. Wt Readings from Last 3 Encounters: 01/30/23 77.1 kg (170 lb) 12/26/22 78.5 kg (173 lb) 11/05/22 76.7 kg (169 lb) Results for orders placed or performed in visit on 04/02/23 CBC Result Value Ref Range WBC 5.74 4.00 - 10.80 K/uL RBC 4.58 3.85 - 5.15 M/uL HGB 14.1 12.0 - 15.3 g/dL HCT 43.9 36.0 - 45.2 % MCV 95.9 81.5 - 97.5 fL MCH 30.8 27.0 - 34.0 pg MCHC 32.1 32.0 - 36.0 g/dL RDW 12.1 11.5 - 15.5 % PLT 317 140 - 400 K/uL MPV 9.4 6.6 - 11.1 fL BASIC METABOLIC PANEL Result Value Ref Range BUN 20 6 - 20 mg/dL Creatinine 0.9 0.5 - 1.0 mg/dL Estimated Glomerular Filtration Rate 73 >=60 mL/min Sodium 142 135 - 146 mmol/L Potassium 4.5 3.5 - 5.1 mmol/L Chloride 104 98 - 107 mmol/L CO2 26 22 - 32 mmol/L Anion Gap 12 7 - 15 mmol/L Glucose 85 70 - 120 mg/dL Calcium 9.2 8.4 - 10.2 mg/dL OBJECTIVE: Physical Exam: BP 124/62 | Pulse 60 | Temp 35.8 C (96.4 F) (Tympanic) General: alert, healthy, and no distress Ears: External ears normal, Canals clear, TM's Normal Oropharynx: no exudate, no erythema, lips, buccal mucosa, and tongue normal, and mucous membranes are moist Neck: supple, no adenopathy Heart: regular rate & rhythm, no murmur, and no gallops Lungs: lungs clear to auscultation Acute sinusitis, recurrence not specified, unspecified location (Primary) - Amoxicillin-Pot Clavulanate 875-125 MG Oral Tablet (Augmentin); Take 1 Tablet by mouth in the morning and 1 Tablet before bedtime. Do all this for 10 days. Current mild episode of major depressive disorder without prior episode (HCC) Ureteral stricture, right Doc Jerod Quinn DO documented in this encounter Miscellaneous Notes * Addendum Note - Doc Quinn DO - 04/03/2023 10:57 AM ESTAddended by: DOC QUINN on: 04/03/2023 10:57 AM Modules accepted: Level of Service documented in this encounter Plan of Treatment Upcoming Encounters Date Type Department Care Team (Latest Contact Info) Description 04/08/2023 11:56 AM EST Hospital Encounter [facility], Operating Room [facility] [place] [phone] Bridger Mcnamara MD [address] [place] [address] 04/08/2023 11:56 AM EST - 04/08/2023 12:46 PM EST Surgery OR [facility], Operating Room [facility] [address] [place] [phone] Bridger Mcnamara MD [address] [place] [address] CYSTOURETHROSCOPY WITH FOREIGN BODY REMOVAL SIMPLE 04/22/2023 2:30 PM EST Office Visit Urology, [facility] [address] [place] [address] Bridger Mcnamara MD [address] [place] [address] 01/01/2024 1:00 PM EDT Nurse Only Ancillary [facility] [address] [facility] [place] [address] [facility], Nurse Annual Wellness [facility] [address] [place] [address] 02/05/2024 10:00 AM EST Office Visit Family Practice [facility] [address] [place] [address] Marina Baird MD [address] [place] [address] Scheduled Procedures Name Priority Associated Diagnoses Date/Ti me CYSTOURETHROSCOPY WITH FOREI GN BODY REMOVAL SIMPLE Stricture of ureter 04/08/2023 11:56 AM EST CYSTOURETHROSCOPY WITH INSERTION URETERAL STENT Stricture of ureter 04/08/2023 11:56 AM EST COLONOSCOPY FLEXIBLE PROXIMA L DIAGNOSTIC Recall Encounter for screening colonoscopy Health Maintenance Due Date Last Done Comments Cologuard 08/25/1995 Sigmoidoscopy 08/25/1995 Zoster Vaccines (1 of 2) 2000 Fecal Occult Blood Test 09/05/2001 09/05/2000 COVID-19 Vaccine ( season) 2022 02/12/2022, 03/03/2021, 07/06/2020, Additional history exists Depression Screening 12/27/2023 12/26/2022 Mammogram 02/28/2024 02/27/2023, 11/11/2021, 02/07/2022, Additional history exists DXA Scan 04/16/2025 [...] this encounter Medical Devices Implanted Type Area Apparatus Cleaner Device Identifier Shelf Expiration Date Model / Serial / Lot Inlay [place] Ureteral Stent Implanted:Qty: 1 on 04/23/2014 by Arlene Medina MD at OR [facility] Right: Ureter [employer]CTIVE [employer] 05/01/2017 [id number] / / [id number] Bard Ureteral Stent 6x26 Implanted:Qty: 1 on 07/02/2014 by Arlene Medina MD at OR [facility] Right: Ureter 07/29/2018 [id number] / / [id number] documented as of this encounter Visit Diagnoses Diagnosis Acute sinusitis, recurrence not specified, unspecified location- Primary Current mild episode of major depressive disorder without prior episode (HCC) Ureteral stricture, right Stricture or kinking of ureter Stricture of ureter Stricture or kinking of ureter documented in this encounter Advance Directives Latest Code Status on File Code Status Date Activated Date Inactivated Comments Full Code 11/05/2022 10:19 AM 11/05/2022 2:57 PM This o rder reflects the patients wishes and were consensually agreed upon. Question Answer Comments Discussion of Advance Directives occurred with: Patient Code Status History Code Status Date Activated Date Inactivated Comments Full Code 11/05/2022 9:21 AM 11/05/2022 10:19 AM This o rder reflects the patients wishes and were consensually agreed upon. Question Answer Comments Discussion of Advance Directives occurred with: Patient Full Code 06/18/2022 9:04 AM 06/18/2022 1:40 PM This order reflects the patients wishes and were consensually agreed upon. Question Answer Comments Discussion of Advance Directives occurred with: Patient Full Code 06/18/2022 7:09 AM 06/18/2022 9:04 AM This order reflects the patients wishes and were consensually agreed upon. Question Answer Comments Discussion of Advance Directives occurred with: Patient Full Code 01/15/2022 8:10 AM 01/15/2022 12:40 PM Th is order reflects the patients wishes and were consensually agreed upon. Question Answer Comments Discussion of Advance Directives occurred with: Patient/Family Care Teams Cask Maker Relationship Specialty Start Date End Date Marina Baird MD [address] [place] [address] [place] [address] PCP - General Internal Medicine 01/02/21 documented as of this encounter"
--- OUTSIDE RECORDS SUMMARY | 2023-07-11 16:36 | External Medical Summary | Summary of Care ---
Author Name Unknown Organization [facility] Address [address] [place] [address] Phone [phone] Care Team Providers Care Production Artist Name Role Phone Marina Baird MD Primary Care Provider Reason for Visit * Reason Onset Date Comments Surgery 04/04/2023 Reschedule Encounter Details Date Type Department Care Team (Late st Contact Info) Description 04/04/2023 Telephone Urology, [address] [place] [address] Services, Scheduling [address] [place] [address] Surgery (Reschedule ) Allergies Active Allergy Reactions Criticality Noted Date Comments Pollen 12/20/2020 Seasonal allergies documented as of this encounter (statuses as of 04/04/2023) Medications Medication Sig Dispensed Refills Start Date [...] as of this encounter (statuses as of 04/04/2023) Active Problems Problem Noted Date Diagnosed Date [...] as of this encounter (statuses as of 04/04/2023) Resolved Problems Problem Noted Date Diagnosed Date Resolved Date Malignant neoplasm of corpus uteri 08/28/2016 08/28/2016 Depression 05/19/2010 03/10/2019 Dyslipidemia, goal LDL below 160 05/17/2008 03/15/2009 Overview: Per Lipid Taxonomy. Osteoporosis 04/30/2006 05/23/2015 ADVANCE DIRECTIVE INFORMATION 08/02/2004 08/28/2016 Overview: has one at police crime scene technician informed that she could bring it in to be scanned documented as of this encounter (statuses as of 04/04/2023) Immunizations Name Administration Dates Next Due COVID-19 mRNA, LNP-s, No Pre serve, 2-Dose Series ([employer]) 03/03/2021,07/06/2020,06/15/2020 Covid-19, Mrna, Lnp-s, Pf, B ivalent, [...] on file documented as of this encounter Miscellaneous Notes * Telephone Encounter - Bam Easton OSA - 04/04/2023 9:50 AM EST Surgery rescheduled to 04/15/23 * Telephone Encounter - Arlene Mcneal OSA - 04/04/2023 9:30 AM EST Patient calling, needs to reschedule surgery due to illness, please call back and reschedule and any attached appts, thanks documented in this encounter Plan of Treatment Upcoming Encounters Date Type Department Care Team (Latest Contact Info) Description 04/15/2023 8:57 AM EST Hospital Encounter [facility], Operating Room [facility] [address] [place] [phone] Bridger Mcnamara MD [address] [place] [address] 04/15/2023 8:57 AM EST - 04/15/2023 9:47 AM EST Surgery [facility], Operating Room [facility] [address] [place] [phone] Bridger Mcnamara MD [address] [place] [address] CYSTOURETHROSCOPY WITH FOREIGN BODY REMOVAL SIMPLE 05/06/2023 4:15 PM EST Office Visit Urology, [facility] [address] [place] [address] Bridger Mcnamara MD [address] [place] [address] 01/01/2024 1:00 PM EDT Nurse Only Ancillary [facility] [address] [place] [address] [facility], Nurse Annual Wellness [facility] [address] [place] [address] 02/05/2024 10:00 AM EST Office Visit Family [facility] [address] [place] [address] Marina Baird MD [address] [place] [address] Scheduled Procedures Name Priority Associated Diagnoses Date/Ti me CYSTOURETHROSCOPY WITH FOREI GN BODY REMOVAL SIMPLE Stricture of ureter 04/15/2023 8:57 AM EST CYSTOURETHROSCOPY WITH INSERTION URETERAL STENT Stricture of ureter 04/15/2023 8:57 AM EST COLONOSCOPY FLEXIBLE PROXIMA L DIAGNOSTIC [...] this encounter Medical Devices Implanted Type Area Morgue Technician Device Identifier Shelf Expiration Date Model / Serial / Lot Inlay [place] Ureteral Stent Implanted:Qty: 1 on 04/23/2014 by Arlene Medina MD at OR [facility] Right: Ureter [employer]NACTIVE [employer] 05/01/2017 [id number] / / [id number] Bard Ureteral Stent 6x26 Implanted:Qty: 1 on 07/02/2014 by Arlene Medina MD at OR [facility] Right: Ureter 07/29/2018 [id number] / / [id number] documented as of this encounter Advance Directives Latest Code Status [...] Advance Directives occurred with: Patient/Family Care Teams Production Artist Relationship Specialty Start Date End Date Marina Baird MD [address] [place] [address] PCP - General Internal Medicine 01/02/21 documented as of this encounter
--- OUTSIDE RECORDS SUMMARY | 2023-07-11 16:36 | External Medical Summary | Summary of Care ---
Author Name Unknown Organization [facility] Address [address] [facility] [address] Phone [phone] Care Team Providers Care Health Manager Name Role Phone Marina Baird MD Primary Care Provider Reason for Visit * Reason Comments Outpatient Testing Encounter Details Date Type Department Care Team (Late st Contact Info) Description 04/02/2023 11:10 AM EST Laboratory [facility], [facility] [place] [address] [facility] [address] Ureteral stricture, right Allergies Active Allergy Reactions Criticality Noted Date Comments Pollen 12/20/2020 Seasonal allergies documented as of this encounter (statuses as of 04/02/2023) Medications Medication Sig Dispensed Refills Start Date [...] Active Additional Information Patient not taking.Reported on 03/28/2023 Sertraline HCl 50 MG Oral Tablet (Zoloft)Indications: [...] 180 days 1 Each 1 01/30/2023 Active documented as of this encounter (statuses as of 04/02/2023) Active Problems Problem Noted Date Diagnosed Date [...] as of this encounter (statuses as of 04/02/2023) Resolved Problems Problem Noted Date Diagnosed Date Resolved Date Malignant neoplasm of corpus uteri 08/28/2016 08/28/2016 Depression 05/19/2010 03/10/2019 Dyslipidemia, goal LDL below 160 05/17/2008 03/15/2009 Overview: Per Lipid Taxonomy. Osteoporosis 04/30/2006 05/23/2015 ADVANCE DIRECTIVE INFORMATION 08/02/2004 08/28/2016 Overview: has one at wardrobe stylist informed that she could bring it in to be scanned documented as of this encounter (statuses as of 04/02/2023) Immunizations Name Administration Dates Next Due COVID-19 mRNA, LNP-s, No Pre serve, 2-Dose Series ([facility]) 03/03/2021,07/06/2020,06/15/2020 Covid-19, Mrna, Lnp-s, Pf, B ivalent, 30 Mcg, IM, 12 yrs and above ([facility]) 02/12/2022 Pneumococcal Conjugate Vacc, 13 Valent (Prevnar) [...] on file documented as of this encounter Plan of Treatment Upcoming Encounters Date Type Department Care Team (Latest Contact Info) Description 04/03/2023 9:40 AM EST Office Visit [address] [place] [address] Ada Quinn DO [address] [place] [address] 04/08/2023 11:56 AM EST Hospital Encounter OR [facility], Operating Room [facility] [address] [place] [phone] Bridger Mcnamara MD [address] [place] [address] [place] [address] 04/08/2023 11:56 AM EST - 04/08/2023 12:46 PM EST Surgery OR [facility], Operating Room [facility] [address] [place] [phone] Bridger Mcnamara MD [address] [place] [address] [place] [address] CYSTOURETHROSCOPY WITH FOREIGN BODY REMOVAL SIMPLE 04/22/2023 2:30 PM EST Office Visit Urology, [facility] [address] [place] [address] Bridger Mcnamara MD [address] [place] [address] [place] [address] 01/01/2024 1:00 PM EDT Nurse Only Ancillary [facility] [address] [place] [address] [place], Nurse Annual Wellness [facility] [address] [place] [address] 02/05/2024 10:00 AM EST Office Visit Family Practice [facility] 132 [place] [address] Marina Baird MD [address] [place] [address] Pending Results Name Type Priority Associated Diagnoses Date /Time BASIC METABOLIC PANEL Lab Routine Ureteral stricture, right 04/02/2023 10:43 AM EST CULTURE, URINE, QUANTITATIVE Lab Routine Ureteral stricture, right 04/02/2023 10:49 AM EST Scheduled Procedures Name Priority Associated Diagnoses Date/Ti [...] Depression Screening 12/27/2023 12/26/2022 Mammogram 02/28/2024 02/27/2023, 11/2021, 02/07/2022, Additional history exists DXA Scan [...] this encounter Medical Devices Implanted Type Area Bronzer Device Identifier Shelf Expiration Date Model / Serial / Lot Inlay Clarion Ureteral Stent Implanted:Qty: 1 on 04/23/2014 by Arlene Medina MD at OR [facility] Right: Ureter INACTIVE CR [employer] 05/01/2017 [id number] / / [id number] Bard Ureteral Stent 6x26 Implanted:Qty: 1 on 07/02/2014 by Arlene Medina MD at OR [facility] Right: Ureter 07/29/2018 [id number] / / [id number] documented as of this encounter Procedures Procedure Name Priority Date/Time Associated Diagnosis Comments CBC Routine 04/02/2023 10:43 AM EST Ureteral stricture, right documented in this encounter Results * CBC (04/02/2023 10:43 AM EST) WBC 5.74 4.00 - 10.80 K/uL 04/02/2023 10:55 AM EST LAB[facility] 57-10 RBC 4.58 3.85 - 5.15 M/uL 04/02/2023 10:55 AM EST LAB[facility]ORY PORT [facility] 57-10 HGB 14.1 12.0 - 15.3 g/dL 04/02/2023 10:55 AM EST LAB[facility] PORT [facility] 57-10 HCT 43.9 36.0 - 45.2 % 04/02/2023 10:55 AM EST LAB[facility] PORT [facility] 57-10 MCV 95.9 81.5 - 97.5 fL 04/02/2023 10:55 AM EST LAB[facility] PORT [facility] 57-10 MCH 30.8 27.0 - 34.0 pg 04/02/2023 10:55 AM EST LAB[facility] PORT [facility] 57-10 MCHC 32.1 32.0 - 36.0 g/dL 04/02/2023 10:55 AM EST LAB[facility]ORY PORT [facility] 57-10 RDW 12.1 11.5 - 15.5 % 04/02/2023 10:55 AM EST LAB[facility]ORY PORT [facility] 57-10 PLT 317 140 - 400 K/uL 04/02/2023 10:55 AM EST LAB[facility]ORY PORT [facility] 57-10 MPV 9.4 6.6 - 11.1 fL 04/02/2023 10:55 AM EST LAB[facility]ATORY [facility] 57-10 Blood Venous blood specimen / Unknown Venipuncture / Unknown 04/02/2023 10:43 AM EST 04/02/2023 10:43 AM EST Bridger Mcnamara MD LAB BLOOD [facility] [place] 57-10 [address] [place] [address] documented in this encounter Visit Diagnoses Diagnosis Ureteral stricture, right Stricture or kinking of [...] Advance Directives occurred with: Patient/Family Care Teams Health Manager Relationship Specialty Start Date End Date Marina Baird MD [address] [place] [address] PCP - General Internal Medicine 01/02/21 documented as of this encounter
--- OUTSIDE RECORDS SUMMARY | 2023-07-11 16:36 | External Medical Summary | Summary of Care ---
Author Name Unknown Organization [facility] Address [address] [facility] [place] [address] Phone [phone] Care Team Providers Care Park Keeper Name Role Phone Marina Baird MD Primary [...] 04/03/2023 9:40 AM EST Office Visit Family [facility] [address] [place] [address] Ada Fowler DO [address] [place] [address] Acute sinusitis, recurrence not specified, unspecified location*; [...] INFORMATION 08/02/2004 08/28/2016 Overview: has one at facilities maintenance supervisor informed that she could bring it in [...] documented in this encounter Progress Notes * Ada Fowler, DO - 04/03/2023 9:47 AM EST Subjective: [...] performed by Uziel Andersen DO at ENDOSCOPY [facility] CYSTOSCOPY/INSERTION OF STENT Right 01/14/2015 CYSTOURETHROSCOPY WITH INSERTION URETERAL STENT performed by Arlene Medina MD at OR [facility] CYSTOSCOPY/INSERTION OF STENT 09-23-2015 CYSTOSCOPY/INSERTION OF STENT Right 09/23/2015 CYSTOURETHROSCOPY WITH INSERTION URETERAL STENT performed by Arlene Medina MD at OR [facility] CYSTOSCOPY/INSERTION OF STENT Right 06/21/2017 CYSTOURETHROSCOPY WITH INSERTION URETERAL STENT performed by Arlene Medina MD at OR [facility] CYSTOSCOPY/INSERTION OF STENT Right 12/28/2016 CYSTOURETHROSCOPY WITH INSERTION URETERAL STENT performed by Arlene Medina MD at OR [facility] CYSTOSCOPY/INSERTION OF STENT Right 08/17/2016 CYSTOURETHROSCOPY WITH INSERTION URETERAL STENT performed by Arlene Medina MD at OR [facility] CYSTOSCOPY/INSERTION OF STENT Right 03/02/2016 CYSTOURETHROSCOPY WITH INSERTION URETERAL STENT performed by Arlene Medina MD at OR [facility] CYSTOSCOPY/INSERTION OF STENT Right 12/27/2017 CYSTOURETHROSCOPY WITH INSERTION URETERAL STENT performed by Arlene Medina MD at OR [facility] CYSTOSCOPY/INSERTION OF STENT Right 06/20/2018 CYSTOURETHROSCOPY WITH INSERTION URETERAL STENT performed by Arlene Medina MD at OR [facility] CYSTOSCOPY/INSERTION OF STENT Right 01/09/2019 CYSTOURETHROSCOPY WITH INSERTION URETERAL STENT performed by Arlene Medina MD at OR [facility] CYSTOSCOPY/INSERTION OF STENT Right 07/31/2019 CYSTOURETHROSCOPY WITH INSERTION URETERAL STENT performed by Arlene Medina MD at OR [facility] CYSTOSCOPY/INSERTION OF STENT Right 01/19/2020 CYSTOURETHROSCOPY WITH INSERTION URETERAL STENT performed by Arlene Medina MD at OR [facility] CYSTOSCOPY/INSERTION OF STENT Right 07/05/2020 CYSTOURETHROSCOPY WITH INSERTION URETERAL STENT performed by Arlene Medina MD at OR [facility] CYSTOSCOPY/INSERTION OF STENT Right 01/02/2021 CYSTOURETHROSCOPY WITH INSERTION URETERAL STENT performed by Bridger Mcnamara MD at OR [facility] CYSTOSCOPY/INSERTION OF STENT Right 07/31/2021 CYSTOURETHROSCOPY WITH INSERTION URETERAL STENT performed by Bridger Mcnamara MD at OR [facility] CYSTOSCOPY/INSERTION OF STENT Right 01/15/2022 CYSTOURETHROSCOPY WITH INSERTION URETERAL STENT performed by Bridger Mcnamara MD at OR [facility] CYSTOSCOPY/INSERTION OF STENT Right 06/18/2022 CYSTOURETHROSCOPY WITH INSERTION URETERAL STENT performed by Bridger Mcnamara MD at OR [facility] CYSTOSCOPY/INSERTION OF STENT Right 11/05/2022 CYSTOURETHROSCOPY WITH INSERTION URETERAL STENT performed by Bridger Mcnamara MD at OR [facility] CYSTOSCOPY/REMOVE OBJECT, SIMPLE 05/14/14 Right Stent Removal CYSTOSCOPY/REMOVE OBJECT, SIMPLE Right 01/02/2021 CYSTOURETHROSCOPY WITH FOREIGN BODY REMOVAL SIMPLE performed by Bridger Mcnamara MD at OR [facility] CYSTOSCOPY/REMOVE OBJECT, SIMPLE Right 07/31/2021 CYSTOURETHROSCOPY WITH FOREIGN BODY REMOVAL SIMPLE performed by Bridger Mcnamara MD at OR [facility] CYSTOSCOPY/REMOVE OBJECT, SIMPLE Right 01/15/2022 CYSTOURETHROSCOPY WITH FOREIGN BODY REMOVAL SIMPLE performed by Bridger Mcnamara MD at OR [facility] CYSTOSCOPY/REMOVE OBJECT, SIMPLE Right 06/18/2022 CYSTOURETHROSCOPY WITH FOREIGN BODY REMOVAL SIMPLE performed by Bridger Mcnamara MD at OR [facility] CYSTOSCOPY/REMOVE OBJECT, SIMPLE Right 11/05/2022 CYSTOURETHROSCOPY WITH FOREIGN BODY REMOVAL SIMPLE performed by Bridger Mcnamara MD at OR [facility] PAP SCREEN 08/30 Dr. Geller RADIATION THERAPY [...] Son No Known Problems Son negative for Shoshone's gene Uterine cancer Niece Other (mesothelioma) Uncle [...] level: Not on file Occupational History Occupation: [employer] Employer: Tobacco Use Smoking status: Never Smokeless tobacco: [...] without prior episode (HCC) Ureteral stricture, right Ada Fowler DO documented in this encounter Plan of Treatment Upcoming Encounters Date Type Department Care Team (Latest Contact Info) Description 04/08/2023 11:56 AM EST Hospital Encounter OR [facility], Operating Room [facility] [address] [place] [phone] Bridger Mcnamara MD [address] [place] [address] [place] [address] 04/08/2023 11:56 AM EST - 04/08/2023 12:46 PM EST Surgery OR [facility], Operating Room [facility] 132 [place] [phone] Bridger Mcnamara MD [address] [place] [address] CYSTOURETHROSCOPY WITH FOREIGN BODY REMOVAL SIMPLE 04/22/2023 2:30 PM EST Office Visit Urology, [facility] 132 [place] [address] Bridger Mcnamara MD [address] [place] [address] [place] [address] 01/01/2024 1:00 PM EDT Nurse Only Ancillary [facility] 132 [facility] [place] [address] [facility], Nurse Annual Wellness [address] [place] [address] 02/05/2024 10:00 AM EST Office Visit Family Practice [facility] 132 [facility] [place] [address] Marina Baird MD 132 [facility] [place] [address] Scheduled Procedures Name Priority Associated Diagnoses Date/Ti [...] this encounter Medical Devices Implanted Type Area Head Batcher Device Identifier Shelf Expiration Date Model / Serial / Lot Inlay Stacy Ureteral Stent Implanted:Qty: 1 on 04/23/2014 by Arlene Medina MD at OR [facility] Right: Ureter INACTIVE CR [employer] 05/01/2017 [id number] / / [id number] Bard Ureteral Stent 6x26 Implanted:Qty: 1 on 07/02/2014 by Arlene Medina MD at OR [facility] Right: Ureter 07/29/2018 [id number] / / [id number] documented as of this encounter Visit Diagnoses [...] Advance Directives occurred with: Patient/Family Care Teams Park Keeper Relationship Specialty Start Date End Date Marina Baird MD [address] [place] [address] PCP - General Internal Medicine 01/02/21 documented as of this encounter"
--- OUTSIDE RECORDS SUMMARY | 2023-07-11 16:36 | External Medical Summary | Summary of Care ---
Author Name Unknown Organization [facility] Address [address] [place] [address] Phone [phone] Care Team Providers Care Printer Slotter Operator Name Role Phone Marina Baird MD Primary Care Provider Encounter Details Date Type Department Care Team (Late st Contact Info) Description 04/11/2023 Telephone Urology, [facility] 132 [facility] [place] [address] Services, Scheduling [address] [place] [address] Allergies Active Allergy Reactions Criticality Noted Date Comments Pollen 12/20/2020 Seasonal allergies documented as of this encounter (statuses as of 04/11/2023) Medications Medication Sig Dispensed Refills Start Date [...] as of this encounter (statuses as of 04/11/2023) Active Problems Problem Noted Date Diagnosed Date [...] as of this encounter (statuses as of 04/11/2023) Resolved Problems Problem Noted Date Diagnosed Date Resolved Date Malignant neoplasm of corpus uteri 08/28/2016 08/28/2016 Depression 05/19/2010 03/10/2019 Dyslipidemia, goal LDL below 160 05/17/2008 03/15/2009 Overview: Per Lipid Taxonomy. Osteoporosis 04/30/2006 05/23/2015 ADVANCE DIRECTIVE INFORMATION 08/02/2004 08/28/2016 Overview: has one at nursery rn informed that she could bring it in to be scanned documented as of this encounter (statuses as of 04/11/2023) Immunizations Name Administration Dates Next Due COVID-19 mRNA, LNP-s, No Pre serve, 2-Dose Series ([facility]) 03/03/2021,07/06/2020,06/15/2020 Covid-19, Mrna, Lnp-s, Pf, B ivalent, [...] Miscellaneous Notes * Telephone Encounter - Bam Easton, BREANNA - 04/11/2023 10:30 AM EST Surgery changed to 04/22/23. * Telephone Encounter - Mahnaz Mata OSA - 04/11/2023 10:13 AM EST Pt need to reschedule surgery please reach out to her to reschedule Thank you ENT,Audiology,Urology Scheduling Please do not respond to me use pool [place] P [id number] Urology: P [id number] documented in this encounter Plan of Treatment Upcoming Encounters Date Type Department Care Team (Latest Contact Info) Description 04/22/2023 9:07 AM EST Hospital Encounter OR [facility], Operating Room [facility] [address] [place] [phone] Bridger Mcnamara MD [address] [place] [address] [place] [address] 04/22/2023 9:07 AM EST - 04/22/2023 9:57 AM EST Surgery OR [facility], Operating Room [facility] [address] [place] [address] Bridger Mcnamara MD [address] [place] [address] [place] [address] CYSTOURETHROSCOPY WITH FOREIGN BODY REMOVAL SIMPLE 05/06/2023 4:15 PM EST Office Visit Urology, [facility] [address] [place] [address] Bridger Mcnamara MD [address] [place] [address] [place] [address] 01/01/2024 1:00 PM EDT Nurse Only Ancillary [facility] [address] [place] [address] [place], Nurse Annual Wellness [facility] [address] [place] [address] 02/05/2024 10:00 AM EST Office Visit Family [facility] [address] [place] [address] Marina Baird MD [address] [place] [address] Scheduled Procedures Name Priority Associated Diagnoses Date/Ti me CYSTOURETHROSCOPY WITH FOREI GN BODY REMOVAL SIMPLE Stricture of ureter 04/22/2023 9:07 AM EST CYSTOURETHROSCOPY WITH INSERTION URETERAL STENT Stricture of ureter 04/22/2023 9:07 AM EST COLONOSCOPY FLEXIBLE PROXIMA L DIAGNOSTIC [...] this encounter Medical Devices Implanted Type Area Supervisor Industrial Garment Device Identifier Shelf Expiration Date Model / Serial / Lot Inlay [place] Ureteral Stent Implanted:Qty: 1 on 04/23/2014 by Arlene Medina MD at OR [facility] Right: Ureter INACTIVE CR [employer] 05/01/2017 [id number] / / [id number] Bard Ureteral Stent 6x26 Implanted:Qty: 1 on 07/02/2014 by Arlene Medina MD at OR [facility] Right: Ureter 07/29/2018 [id number] / / [id number] documented as of this encounter Advance Directives [...] Advance Directives occurred with: Patient/Family Care Teams Printer Slotter Operator Relationship Specialty Start Date End Date Marina Baird MD 132 [place] [address] PCP - General Internal Medicine 01/02/21 documented as of this encounter
--- OUTSIDE RECORDS SUMMARY | 2023-07-11 16:37 | External Medical Summary ---
Author Name Unknown Address Unknown Organization [id number]:[facility] - [address] [place] [address] Laboratory Report Ordering Provider Test Date Status LOLY JAVED 04/02/2023 10:49:10 Final Observation Date Value Abnormality Reference (Units) Status Bacteria identified in Specimen by Culture 04/02/2023 10:49:10 No significant growth Final Test: Culture, Urine, Quanti tative
Specimen Source: Urine, Clean Catch
Specimen Type: Urine
Specimen Date: 04/02/2023 10:49 AM
Result Date: 04/03/2023 12:05 PM
Result Status: Final result
Resulting Lab: [facility]
[address]
[place] [address]

CULTURE

No significant growth

null Performing Location [facility] - [address] [place] [address]
--- OUTSIDE RECORDS SUMMARY | 2023-07-11 16:37 | External Medical Summary ---
Author Name Unknown Address Unknown Organization [id number]:[facility] - [address] [place] [address] Laboratory Report Ordering Provider Test Date Status LOLY JAVED 04/02/2023 10:43:36 Final Observation Date Value Abnormality Reference (Units ) Status BUN 04/02/2023 10:43:36 20 6-20 (mg/dL) Final Creatinine 04/02/2023 10:43:36 0.9 0.5-1.0 (mg/dL) Final Glomerular filtration rate/1.73 sq M.predicted [Volume Rate/Area] in Serum, Plasma or Blood by Creatinine-based formula (CKD-EPI) 04/02/2023 10:43:36 73 >=60 (mL/min) Final eGFR is calculated based on the CKD-EPI 2020 equation SODIUM 04/02/2023 10:43:36 142 135-146 (m mol/L) Final Potassium 04/02/2023 10:43:36 4.5 3.5-5.1 (m mol/L) Final Cl 04/02/2023 10:43:36 104 98-107 (mm ol/L) Final CO2 04/02/2023 10:43:36 26 22-32 (mmo l/L) Final Anion gap 04/02/2023 10:43:36 12 7-15 (mmol /L) Final Glucose 04/02/2023 10:43:36 85 70-120 (mg /dL) Final Calcium 04/02/2023 10:43:36 9.2 8.4-10.2 ( mg/dL) Final Performing Location [facility]-1 0 - [address] [place] [address]
--- OUTSIDE RECORDS SUMMARY | 2023-07-11 16:37 | External Medical Summary | Summary of Care ---
Author Name Unknown Organization [facility] Address [address] [facility] [place] [address] Phone [phone] Care Team Providers Care Towel Cabinet Repairer Name Role Phone Marina Baird MD Primary Care Provider Reason for Visit * Reason Onset Date Comments Med Request 03/26/2023 Encounter Details Date Type Department Care Team (Late st Contact Info) Description 03/26/2023 Telephone Family Practice [facility] [address] [place] [address] Marina Baird MD [address] [place] [address] Med Request Allergies Active Allergy Reactions Criticality Noted Date Comments Pollen 12/20/2020 Seasonal allergies documented as of this encounter (statuses as of 03/26/2023) Medications Medication Sig Dispensed Refills Start Date [...] Capsule 5 01/24/2022 Active Additional Information Patient taking differently:20 mg OralDAILY PRN, 1 hour before the first meal of the day, Reported on 12/26/2022 Sertraline HCl 50 MG Oral Tablet (Zoloft)Indications: [...] as of this encounter (statuses as of 03/26/2023) Active Problems Problem Noted Date Diagnosed Date [...] as of this encounter (statuses as of 03/26/2023) Resolved Problems Problem Noted Date Diagnosed Date Resolved Date Malignant neoplasm of corpus uteri 08/28/2016 08/28/2016 Depression 05/19/2010 03/10/2019 Dyslipidemia, goal LDL below 160 05/17/2008 03/15/2009 Overview: Per Lipid Taxonomy. Osteoporosis 04/30/2006 05/23/2015 ADVANCE DIRECTIVE INFORMATION 08/02/2004 08/28/2016 Overview: has one at dentist informed that she could bring it in to be scanned documented as of this encounter (statuses as of 03/26/2023) Immunizations Name Administration Dates Next Due COVID-19 mRNA, LNP-s, No Pre serve, 2-Dose Series ([employer]) 03/03/2021,07/06/2020,06/15/2020 Covid-19, Mrna, Lnp-s, Pf, B ivalent, [...] encounter Miscellaneous Notes * Telephone Encounter - Arlene Pagan LPN - 03/26/2023 12:04 PM EST Pt aware. * Telephone Encounter - Rhina Harrison DO - 03/26/2023 11:57 AM EST Sounds, viral, recommend at home covid test Mucinex otc is okay to take, no interaction with her current meds Otherwise rest, fluids, tylenol for pain * Telephone Encounter - Arlene Pagan LPN - 03/26/2023 11:50 AM EST Called pt, denies SOB, mild coughing from sinus drainage down the throat which makes her cough. Headaches and chills have gone away. No fever. Urinary stent getting placed on 04/08/23. Is there anything that she can do to help get that drainage? I suggested Mucinex to thin mucous. But not sure she should take that. She has never been told that she cannot take it. Please advise. * Telephone Encounter - Leeanne Borjas OSA - 03/26/2023 9:00 AM EST Patient states she had chills for 2 days, sinus drainage, headache. Patient had a sore throat but it went away. She is having a stent being placed on 04/08/23 and would like something to help with her symptoms. documented in this encounter Plan of Treatment Upcoming Encounters Date Type Department Care Team (Latest Contact Info) Description 04/08/2023 11:56 AM EST Hospital Encounter OR [facility], Operating Room [facility] 132 [facility] [place] [address] Bridger Mcnamara MD 27 [facility] [address] [place] [address] 04/08/2023 11:56 AM EST - 04/08/2023 12:46 PM EST Surgery OR [facility], Operating Room [facility] [address] [place] [phone] Bridger Mcnamara MD [address] [place] [address] CYSTOURETHROSCOPY WITH FOREIGN BODY REMOVAL SIMPLE 04/22/2023 2:30 PM EST Office Visit Urology, [facility] 132 [facility] [place] [address] Bridger Mcnamara MD [address] [place] [address] [place] [address] 01/01/2024 1:00 PM EDT Nurse Only Ancillary [facility] 132 [facility] [place] [address] [facility], Nurse Annual Wellness [facility] 132 [facility] [place] [address] 02/05/2024 10:00 AM EST Office Visit Family Practice [facility] 132 [facility] [place] [address] Marina Baird MD 132 [facility] [place] [address] Scheduled Procedures Name Priority Associated Diagnoses Date/Ti [...] this encounter Medical Devices Implanted Type Area Machinist Helper Device Identifier Shelf Expiration Date Model / Serial / Lot Inlay Wisdom Ureteral Stent Implanted:Qty: 1 on 04/23/2014 by Arlene Medina MD at OR [facility] Right: Ureter INACTIVE CR [employer] 05/01/2017 [id number] / / [id number] Bard Ureteral Stent 6x26 Implanted:Qty: 1 on 07/02/2014 by Arlene Medina MD at OR [facility] Right: Ureter 07/29/2018 [id number] / / [id number] documented as of this encounter Advance Directives [...] Advance Directives occurred with: Patient/Family Care Teams Towel Cabinet Repairer Relationship Specialty Start Date End Date Marina Baird MD [address] [place] [address] PCP - General Internal Medicine 01/02/21 documented as of this encounter
--- OUTSIDE RECORDS SUMMARY | 2023-07-11 16:37 | External Medical Summary ---
Author Name Unknown Address Unknown Organization [id number]:[facility]AT[facility] BILL 57-10 - [address] [place] [address] Laboratory Report Ordering Provider Test Date Status LOLY JAVED 04/02/2023 10:43:36 Final Observation Date Value Abnormality Reference (Units ) Status WBC, Total 04/02/2023 10:43:36 5.74 4.00-10.8 0 (K/uL) Final RBC 04/02/2023 10:43:36 4.58 3.85-5.15 (M/uL) Final Hemoglobin 04/02/2023 10:43:36 14.1 12.0-15.3 (g/dL) Final HCT 04/02/2023 10:43:36 43.9 36.0-45.2 (%) Final MCV 04/02/2023 10:43:36 95.9 81.5-97.5 (fL) Final MCH 04/02/2023 10:43:36 30.8 27.0-34.0 (pg) Final MCHC 04/02/2023 10:43:36 32.1 32.0-36.0 (g/dL) Final RDW 04/02/2023 10:43:36 12.1 11.5-15.5 (%) Final Platelets 04/02/2023 10:43:36 317 140-400 (K /uL) Final MPV 04/02/2023 10:43:36 9.4 6.6-11.1 ( fL) Final Performing Location [facility] BILL 57-1 0 - [address] [place] [address]
--- OUTSIDE RECORDS SUMMARY | 2023-07-11 16:45 | External Medical Summary | Summary of Care ---
Author Name Unknown Organization [facility] Address [address] [facility] [place] [address] Phone [phone] Care Team Providers Care Designer Architect Name Role Phone Marina Baird MD Primary Care Provider Reason for Visit * Reason Comments H&P Surgery Encounter Details Date Type Department Care Team (Late st Contact Info) Description 03/04/2023 11:45 AM EST Office Visit Urology, [facility] 132 [facility] [place] [address] Bridger Mcnamara MD 27 [facility] [address] [place] [phone] Ureteral stricture, right* Allergies Active Allergy Reactions Criticality Noted Date Comments Pollen 12/20/2020 Seasonal allergies documented as of this encounter (statuses as of 03/04/2023) Medications Medication Sig Dispensed Refills Start Date [...] as of this encounter (statuses as of 03/04/2023) Active Problems Problem Noted Date Diagnosed Date [...] as of this encounter (statuses as of 03/04/2023) Resolved Problems Problem Noted Date Diagnosed Date Resolved Date Malignant neoplasm of corpus uteri 08/28/2016 08/28/2016 Depression 05/19/2010 03/10/2019 Dyslipidemia, goal LDL below 160 05/17/2008 03/15/2009 Overview: Per Lipid Taxonomy. Osteoporosis 04/30/2006 05/23/2015 ADVANCE DIRECTIVE INFORMATION 08/02/2004 08/28/2016 Overview: has one at reel operator informed that she could bring it in to be scanned documented as of this encounter (statuses as of 03/04/2023) Immunizations Name Administration Dates Next Due COVID-19 mRNA, LNP-s, No Pre serve, 2-Dose Series (Gencia) 03/03/2021,07/06/2020,06/15/2020 Covid-19, Mrna, Lnp-s, Pf, B ivalent, 30 Mcg, IM, 12 yrs and above (Pfizer) 02/12/2022 Pneumococcal Conjugate Vacc, 13 Valent (Prevnar) 02/29/2016 Pneumococcal Polysaccharide PPV23 (Pneumovax) 03/04/2017 SEASONAL INFLUENZA, PF, 6 M & Above, IM , (FLULAVAL or FLUZONE) 01/09/2018,03/04/2017 Seasonal Influenza, Quadriva lent Hd (Fluzone [...] Progress Notes * Bridger Mcnamara MD - 03/04/2023 11:43 AM EST [id number] PCP: MARINA BAIRD 132 [facility] [place] [address] [phone] Melissa Ferreira is a 72 year old female, who presents for f/u of her ureteral stricture managed with indwelling stent. Patient is currently on a 5 month stent exchange schedule, last in October of 2022. She denies other significant changes in her health since last visit. She denies changes in her voiding. Ureteral stricture: Managed with chronic right indwelling stent for years, at least since 2014. Stent typically exchanged every 6 months. Treated for uterine cancer >20 years ago. Therapy included radiation. Current Outpatient Medications Medication Sig Dispense Refill Calcium Carb-Cholecalciferol 500-600 MG-UNIT Oral Tablet Take 1 Tablet by mouth in the morning. Omeprazole 20 MG Oral Capsule Delayed Release (PriLOSEC) Take by mouth 1 Capsule in the morning. 1 hour before the first meal of the day. (Patient taking differently: Take 1 Capsule by mouth daily asneeded. 1 hour before the first meal of the day) 30 Capsule 5 Sertraline HCl 50 MG [...] 60 to 180 days 1 Each 1 No current facility-administered medications [...] Son No Known Problems Son negative for [place]'s gene Uterine cancer Niece Other (mesothelioma) Uncle (Maternal) Colon cancer No significant family history Past Surgical History: Procedure Laterality Date COLONOSCOPY 03/05 normal COLONOSCOPY, DIAGNOSTIC (RECTUM) 05/27/2017 normal, repeat 10 yrs/COLONOSCOPY FLEXIBLE PROXIMAL DIAGNOSTIC performed by zUiel Andersen DO at ENDOSCOPY [facility] CYSTOSCOPY/INSERTION OF STENT Right 01/14/2015 CYSTOURETHROSCOPY WITH INSERTION URETERAL STENT performed by Arlene Medina MD at OR [facility] CYSTOSCOPY/INSERTION OF STENT 09-23-2015 CYSTOSCOPY/INSERTION OF STENT Right 09/23/2015 CYSTOURETHROSCOPY WITH INSERTION URETERAL STENT performed by Arlene Medina MD at OR [facility] CYSTOSCOPY/INSERTION OF STENT Right 06/21/2017 CYSTOURETHROSCOPY WITH INSERTION URETERAL STENT performed by Arlene Medina MD at OR [facility] CYSTOSCOPY/INSERTION OF STENT Right 12/28/2016 CYSTOURETHROSCOPY WITH INSERTION URETERAL STENT performed by Arlene Medina MD at OR [facility] CYSTOSCOPY/INSERTION OF STENT Right 08/17/2016 CYSTOURETHROSCOPY WITH INSERTION URETERAL STENT performed by Arlene Medina MD at OR [facility] CYSTOSCOPY/INSERTION OF STENT Right 03/02/2016 CYSTOURETHROSCOPY WITH INSERTION URETERAL STENT performed by Arlene Medina MD at OR [facility] CYSTOSCOPY/INSERTION OF STENT Right 12/27/2017 CYSTOURETHROSCOPY WITH INSERTION URETERAL STENT performed by Arlene Medina MD at OR [facility] CYSTOSCOPY/INSERTION OF STENT Right 06/20/2018 CYSTOURETHROSCOPY WITH INSERTION URETERAL STENT performed by Arlene Medina MD at OR [facility] CYSTOSCOPY/INSERTION OF STENT Right 01/09/2019 CYSTOURETHROSCOPY WITH INSERTION URETERAL STENT performed by Arlene Medina MD at OR [facility] CYSTOSCOPY/INSERTION OF STENT Right 07/31/2019 CYSTOURETHROSCOPY WITH INSERTION URETERAL STENT performed by Arlene Medina MD at OR [facility] CYSTOSCOPY/INSERTION OF STENT Right 01/19/2020 CYSTOURETHROSCOPY WITH INSERTION URETERAL STENT performed by Arlene Medina MD at OR [facility] CYSTOSCOPY/INSERTION OF STENT Right 07/05/2020 CYSTOURETHROSCOPY WITH INSERTION URETERAL STENT performed by Arlene Medina MD at OR [facility] CYSTOSCOPY/INSERTION OF STENT Right 01/02/2021 CYSTOURETHROSCOPY WITH INSERTION URETERAL STENT performed by Bridger Mcnamara MD at OR [facility] CYSTOSCOPY/INSERTION OF STENT Right 07/31/2021 CYSTOURETHROSCOPY WITH INSERTION URETERAL STENT performed by Bridger Mcnamara MD at OR [facility] CYSTOSCOPY/INSERTION OF STENT Right 01/15/2022 CYSTOURETHROSCOPY WITH INSERTION URETERAL STENT performed by Bridger Mcnamara MD at OR [facility] CYSTOSCOPY/INSERTION OF STENT Right 06/18/2022 CYSTOURETHROSCOPY WITH INSERTION URETERAL STENT performed by Bridger Mcnamara MD at OR [facility] CYSTOSCOPY/INSERTION OF STENT Right 11/05/2022 CYSTOURETHROSCOPY WITH INSERTION URETERAL STENT performed by Bridger Mcnamara MD at OR [facility] CYSTOSCOPY/REMOVE OBJECT, SIMPLE 05/14/14 Right Stent Removal CYSTOSCOPY/REMOVE OBJECT, SIMPLE Right 01/02/2021 CYSTOURETHROSCOPY WITH FOREIGN BODY REMOVAL SIMPLE performed by Bridger Mcnamara MD at OR [facility] CYSTOSCOPY/REMOVE OBJECT, SIMPLE Right 07/31/2021 CYSTOURETHROSCOPY WITH FOREIGN BODY REMOVAL SIMPLE performed by Bridger Mcnamara MD at OR [facility] CYSTOSCOPY/REMOVE OBJECT, SIMPLE Right 01/15/2022 CYSTOURETHROSCOPY WITH FOREIGN BODY REMOVAL SIMPLE performed by Bridger Mcnamara MD at OR [facility] CYSTOSCOPY/REMOVE OBJECT, SIMPLE Right 06/18/2022 CYSTOURETHROSCOPY WITH FOREIGN BODY REMOVAL SIMPLE performed by Bridger Mcnamara MD at OR [facility] CYSTOSCOPY/REMOVE OBJECT, SIMPLE Right 11/05/2022 CYSTOURETHROSCOPY WITH FOREIGN BODY REMOVAL SIMPLE performed by Bridger Mcnamara MD at OR [facility] PAP SCREEN 08/30 Dr. Geller RADIATION THERAPY [...] Z00.00 Constitutional: (-) fever and (-) chills ENT: (-) stridor Female : (+) see HPI Neurology: (-) negative: no focal neurologic defect Psychiatry: (-) negative: no depression or anxiety Physical Exam Nursing note reviewed. Constitutional: Appearance: Normal appearance. HENT: Head: Normocephalic and atraumatic. Right Ear: [...] indwelling ureteral stent. Findings reviewed with patient. Informed consent obtained. Will plan on cystoscopy, right retrograde pyelography and ureteral stent exchange as scheduled. No new questions, risks and benefits reviewed. Will see at the time of planned intervention. Bridger Mcnamara MD 11:43 AM 03/04/2023 documented in this encounter Nursing Notes * Vanessa Suarez LPN - 03/04/2023 11:58 AM EST Patient scheduled at [facility] for ureteral stent exchange with Dr Bridger Mcnamara. Date of Surgery: 04/08/23 Medications reviewed. EKG: on file CXR: on file Labs: ordered UAC&S: ordered, to be done 1 week prior to surgery Post op appts needed: 2-[address] Mcnamara Permit signed. Patient verbalizes understanding of pre- and post op instructions. Written instructions given for review at later date. Vanessa Suarez LPN 03/04/2023 * Vanessa Suarez LPN - 03/04/2023 11:28 AM EST H&P right stent exchange in Apr. No urinary complaints. documented in this encounter Miscellaneous Notes * Addendum Note - Vanessa Suarez LPN - 03/04/2023 11:59 AM ESTAddended by: VANESSA SUAREZ on: 03/04/2023 11:59 AM Modules accepted: Orders documented in this encounter Plan of Treatment Upcoming Encounters Date Type Department Care Team (Late st Contact Info) Description 04/08/2023 Hospital Encounter OR [facility], Operating Room [facility] [address] [place] [id number] Bridger Mcnamara MD [address] [place] [address] [place] [address] 04/22/2023 2:30 PM EST Office Visit Urology, [facility] [address] [place] [address] Bridger Mcnamara MD [address] [place] [place] [address] 01/01/2024 1:00 PM EDT Nurse Only Ancillary [facility] [address] [place] [address] [facility], Nurse Annual Wellness [facility] [address] [place] [address] 02/05/2024 10:00 AM EST Office Visit Family Practice [facility] [address] [place] [address] Marina Baird MD [address] [place] [address] Scheduled Orders Name Type Priority Associated Diagnoses Orde r Schedule CBC Lab Routine Ureteral stricture, right Expected: 03/04/2023, Expires: 03/04/2024 BASIC METABOLIC PANEL Lab Routine Ureteral stricture, right Expected: 03/04/2023, Expires: 03/04/2024 CULTURE, URINE, QUANTITATIVE Lab Routine Ureteral stricture, right Expected: 04/01/2023, Expires: 03/04/2024 Scheduled Procedures Name Priority Associated Diagnoses Date/Ti me CYSTOURETHROSCOPY WITH FOREI GN BODY REMOVAL SIMPLE Stricture of ureter CYSTOURETHROSCOPY WITH INSER TION URETERAL STENT Stricture of ureter COLONOSCOPY FLEXIBLE PROXIMA L DIAGNOSTIC Recall Encounter [...] this encounter Medical Devices Implanted Type Area Piano Assembler Device Identifier Shelf Expiration Date Model / Serial / Lot Inlay [place] Ureteral Stent Implanted:Qty: 1 on 04/23/2014 by Arlene Medina MD at OR [facility] Right: Ureter INACTIVE CR [employer] 05/01/2017 [id number] / / [id number] Bard Ureteral Stent 6x26 Implanted:Qty: 1 on 07/02/2014 by Arlene Medina MD at OR [facility] Right: Ureter 07/29/2018 [id number] / / [id number] documented as of this encounter Visit Diagnoses Diagnosis Ureteral stricture, right- Primary Stricture or kinking of ureter documented in [...] Advance Directives occurred with: Patient/Family Care Teams Designer Architect Relationship Specialty Start Date End Date Marina Baird MD [address] [place] [address] PCP - General Internal Medicine 01/02/21 documented as of this encounter
--- OUTSIDE RECORDS SUMMARY | 2023-07-11 16:46 | External Medical Summary | Summary of Care ---
Author Name Unknown Organization [facility] Address [address] [facility] [place] [address] Phone [phone] Care Team Providers Care Manager Web Name Role Phone Marina Baird MD Primary Care Provider Reason for Visit * Reason Comments H&P Surgery Encounter Details Date Type Department Care Team (Late st Contact Info) Description 03/04/2023 11:45 AM EST Office Visit Urology, [facility] 132 [facility] [place] [address] Bridger Mcnamara MD 27 [facility] [address] [place] [phone] Ureteral stricture, right* Allergies Active Allergy Reactions [...] INFORMATION 08/02/2004 08/28/2016 Overview: 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 one at forensic science technician informed that she could bring it in to be scanned documented as of this encounter (statuses as of 03/04/2023) Immunizations Name Administration Dates Next Due COVID-19 mRNA, LNP-s, No Pre serve, 2-Dose Series (Atbrox) 03/03/2021,07/06/2020,06/15/2020 Covid-19, Mrna, Lnp-s, Pf, B ivalent, [...] Mcnamara MD - 03/04/2023 11:43 AM EST [id number] PCP: MARINA BAIRD 132 [facility] [place] [address] [phone] Melissa Ferreira is a 72 year old [...] Son No Known Problems Son negative for [place]'s gene Uterine cancer Niece Other (mesothelioma) Uncle (Maternal) Colon cancer No significant family history Past Surgical History: Procedure Laterality Date COLONOSCOPY 03/05 normal COLONOSCOPY, DIAGNOSTIC (RECTUM) 05/27/2017 normal, repeat 10 yrs/COLONOSCOPY FLEXIBLE PROXIMAL DIAGNOSTIC performed by Uziel Andersen DO at ENDOSCOPY [facility] CYSTOSCOPY/INSERTION OF STENT Right 01/14/2015 CYSTOURETHROSCOPY WITH INSERTION URETERAL STENT performed by Arlene Medina MD at OR [facility] CYSTOSCOPY/INSERTION OF STENT 09-23-2015 CYSTOSCOPY/INSERTION OF STENT Right 09/23/2015 CYSTOURETHROSCOPY WITH INSERTION URETERAL STENT performed by Arlene Medina MD at OR [facility] CYSTOSCOPY/INSERTION OF STENT Right 06/21/2017 CYSTOURETHROSCOPY WITH INSERTION URETERAL STENT performed by Arlene Medina MD at OR [facility] CYSTOSCOPY/INSERTION OF STENT Right 12/28/2016 CYSTOURETHROSCOPY WITH INSERTION URETERAL STENT performed by Arlene Medina MD at OR [facility] CYSTOSCOPY/INSERTION OF STENT Right 08/17/2016 CYSTOURETHROSCOPY WITH INSERTION URETERAL STENT performed by Arlene Medina MD at OR [facility] CYSTOSCOPY/INSERTION OF STENT Right 03/02/2016 CYSTOURETHROSCOPY WITH INSERTION URETERAL STENT performed by Arlene Medina MD at OR [facility] CYSTOSCOPY/INSERTION OF STENT Right 12/27/2017 CYSTOURETHROSCOPY WITH INSERTION URETERAL STENT performed by Arlene Medina MD at OR [facility] CYSTOSCOPY/INSERTION OF STENT Right 06/20/2018 CYSTOURETHROSCOPY WITH INSERTION URETERAL STENT performed by Arlene Medina MD at OR [facility] CYSTOSCOPY/INSERTION OF STENT Right 01/09/2019 CYSTOURETHROSCOPY WITH INSERTION URETERAL STENT performed by Arlene Medina MD at OR [facility] CYSTOSCOPY/INSERTION OF STENT Right 07/31/2019 CYSTOURETHROSCOPY WITH INSERTION URETERAL STENT performed by Arlene Medina MD at OR [facility] CYSTOSCOPY/INSERTION OF STENT Right 01/19/2020 CYSTOURETHROSCOPY WITH INSERTION URETERAL STENT performed by Arlene Medina MD at OR [facility] CYSTOSCOPY/INSERTION OF STENT Right 07/05/2020 CYSTOURETHROSCOPY WITH INSERTION URETERAL STENT performed by Arlene Medina MD at OR [facility] CYSTOSCOPY/INSERTION OF STENT Right 01/02/2021 CYSTOURETHROSCOPY WITH INSERTION URETERAL STENT performed by Bridger Mcnamara MD at OR [facility] CYSTOSCOPY/INSERTION OF STENT Right 07/31/2021 CYSTOURETHROSCOPY WITH INSERTION URETERAL STENT performed by Bridger Mcnamara MD at OR [facility] CYSTOSCOPY/INSERTION OF STENT Right 01/15/2022 CYSTOURETHROSCOPY WITH INSERTION URETERAL STENT performed by Bridger Mcnamara MD at OR [facility] CYSTOSCOPY/INSERTION OF STENT Right 06/18/2022 CYSTOURETHROSCOPY WITH INSERTION URETERAL STENT performed by Bridger Mcnamara MD at OR [facility] CYSTOSCOPY/INSERTION OF STENT Right 11/05/2022 CYSTOURETHROSCOPY WITH INSERTION URETERAL STENT performed by Bridger Mcnamara MD at OR [facility] CYSTOSCOPY/REMOVE OBJECT, SIMPLE 05/14/14 Right Stent Removal CYSTOSCOPY/REMOVE OBJECT, SIMPLE Right 01/02/2021 CYSTOURETHROSCOPY WITH FOREIGN BODY REMOVAL SIMPLE performed by Bridger Mcnamara MD at OR [facility] CYSTOSCOPY/REMOVE OBJECT, SIMPLE Right 07/31/2021 CYSTOURETHROSCOPY WITH FOREIGN BODY REMOVAL SIMPLE performed by Bridger Mcnamara MD at OR [facility] CYSTOSCOPY/REMOVE OBJECT, SIMPLE Right 01/15/2022 CYSTOURETHROSCOPY WITH FOREIGN BODY REMOVAL SIMPLE performed by Bridger Mcnamara MD at OR [facility] CYSTOSCOPY/REMOVE OBJECT, SIMPLE Right 06/18/2022 CYSTOURETHROSCOPY WITH FOREIGN BODY REMOVAL SIMPLE performed by Bridger Mcnamara MD at OR [facility] CYSTOSCOPY/REMOVE OBJECT, SIMPLE Right 11/05/2022 CYSTOURETHROSCOPY WITH FOREIGN BODY REMOVAL SIMPLE performed by Bridger Mcnamara MD at OR [facility] PAP SCREEN 08/30 Dr. Geller RADIATION [...] 03/04/2023 11:58 AM EST Patient scheduled at [facility] for ureteral stent exchange with Dr Bridger [...] Care Team (Late st Contact Info) Description 04/22/2023 2:30 PM EST Office Visit Urology, [facility] 132 [facility] [place] [address] Bridger Mcnamara MD [address] [place] [address] [place] [address] 01/01/2024 1:00 PM EDT Nurse Only Ancillary [facility] 132 [facility] [place] [address] [facility], Nurse Annual Wellness [facility] 132 [facility] [place] [address] 02/05/2024 10:00 AM EST Office Visit Family Practice [facility] 132 [facility] [place] [address] Marina Baird MD 132 [facility] [place] [address] Scheduled Orders Name Type Priority Associated Diagnoses [...] this encounter Medical Devices Implanted Type Area Toll Service Observer Device Identifier Shelf Expiration Date Model / Serial / Lot Inlay [place] Ureteral Stent Implanted:Qty: 1 on 04/23/2014 by Arlene Medina MD at OR [facility] Right: Ureter INACTIVE CR [employer] 05/01/2017 [id number] / / [id number] Bard Ureteral Stent 6x26 Implanted:Qty: 1 on 07/02/2014 by Arlene Medina MD at OR [facility] Right: Ureter 07/29/2018 [id number] / / [id number] documented as of this encounter Visit Diagnoses [...] Advance Directives occurred with: Patient/Family Care Teams Manager Web Relationship Specialty Start Date End Date Marina Baird MD [address] [place] [address] PCP - General Internal Medicine 01/02/21 documented as of this encounter
--- OUTSIDE RECORDS SUMMARY | 2023-07-11 17:20 | External Medical Summary | Summary of Care ---
Author Name Unknown Organization [facility] Address [address] [facility] [place] [address] Phone [phone] Care Team Providers Care Associate Buyer Name Role Phone Marina Baird MD Primary Care Provider Reason for Visit * Reason Onset Date Comments Forms Request 01/25/2023 Encounter Details Date Type Department Care Team (Late st Contact Info) Description 01/25/2023 Telephone Family Practice [facility] [address] [place] [address] Marina Baird MD [address] [place] [address] Forms Request Allergies Active Allergy Reactions Criticality Noted Date Comments Pollen 12/20/2020 Seasonal allergies documented as of this encounter (statuses as of 01/28/2023) Medications Medication Sig Dispensed Refills Start Date [...] meal of the day, Reported on 12/26/2022 Atorvastatin Calcium 40 MG Oral Tablet (Lipitor)Indication s:Dyslipidemia, goal LDL below 130 Take 1 Tablet (40 mg) by mouth at bedtime. 90 Tablet 3 03/05/2022 Active Sertraline HCl 50 MG Oral Tablet (Zoloft)Indications :Current mild episode of major depressive disorder without prior episode (HCC) Take 1 Tablet (50 mg) by mouth at bedtime. 90 Tablet 3 03/06/2022 Active documented as of this encounter (statuses as of 01/28/2023) Active Problems Problem Noted Date Diagnosed Date Vitamin D deficiency 01/19/2021 Well adult exam 01/19/2021 Overview: Colonoscopy in 2018 was normal. Mammogram normal in July 2020. Last Pap smear 2012. DEXA in 2018, no indication for treatment, repeat in 7 years. Current mild episode of cristal r depressive disorder without prior episode 03/10/2019 History of uterine cancer 08/28/2016 Ureteral stricture, right 03/02/2014 Hydronephrosis 03/02/2014 Dyslipidemia, goal LDL below 160 12/01/2009 documented as of this encounter (statuses as of 01/28/2023) Resolved Problems Problem Noted Date Diagnosed Date Resolved Date Malignant neoplasm of corpus uteri 08/28/2016 08/28/2016 Depression 05/19/2010 03/10/2019 Dyslipidemia, goal LDL below 160 05/17/2008 03/15/2009 Overview: Per Lipid Taxonomy. 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 * Telephone Encounter - Marina Baird MD - 01/28/2023 3:54 PM EDT Form completed. No concerns for decision making capacity or abuse. Has appointment later this week, will update if those change. * Telephone Encounter - Karyna Burt MED ASSIST - 01/25/2023 3:42 PM EDT [facility] fax received and placed in Dr. Baird' mailbox for completion. documented in this encounter Plan of Treatment Upcoming Encounters Date Type Department Care Team (Late st Contact Info) Description 01/30/2023 8:20 AM EDT Office Visit Family Practice [facility] [address] [facility] [place] [address] Marina Baird MD [address] [facility] [place] [address] 03/04/2023 11:45 AM EST Office Visit Urology, [facility] [address] [facility] [place] [address] Bridger Mcnamara MD [address] [facility] [address] [place] [address] 01/01/2024 1:00 PM EDT Nurse Only Ancillary [facility] [address] [facility] [place] [address] [facility], Nurse Annual Wellness [facility] [address] [facility] [place] [address] Scheduled Procedures Name Priority Associated Diagnoses Date/Ti me COLONOSCOPY FLEXIBLE PROXIMA L DIAGNOSTIC Recall Encounter for screening colonoscopy Health Maintenance Due Date Last Done Comments Cologuard 08/25/1995 Sigmoidoscopy 08/25/1995 Zoster Vaccines (1 of 2) 2000 Fecal Occult Blood Test 09/05/2001 09/05/2000 COVID-19 Vaccine ( season) 2022 02/12/2022, 03/03/2021, 07/06/2020, Additional history exists Mammogram 02/07/2023 02/07/2022, 07/31, 06/16/2019, Additional history exists Depression Screening 12/27/2023 12/26/2022 DXA Scan 04/16/2025 04/16/2018, 07/31, 06/03/2009, Additional [...] this encounter Medical Devices Implanted Type Area Instrument Sterilizer Device Identifier Shelf Expiration Date Model / Serial / Lot Inlay [place] Ureteral Stent Implanted:Qty: 1 on 04/23/2014 by Arlene Medina MD at OR [facility] Right: Ureter INACTIVE [employer] 05/01/2017 [id number] / / [id number] Bard Ureteral Stent 6x26 Implanted:Qty: 1 on 07/02/2014 by Arlene Medina MD at OR [facility] Right: Ureter 07/29/2018 [id number] / / [id number] documented as of this encounter Advance Directives [...] Advance Directives occurred with: Patient/Family Care Teams Associate Buyer Relationship Specialty Start Date End Date Marina Baird MD [address] [address] PCP - General Internal Medicine 01/02/21 documented as of this encounter
--- NOTE | 2023-07-11 17:45 | Emergency Department Note ---
ED Visit Note I was consulted by the Advanced Practice Provider Hannah Zhou PA-C I personally made/approved the management plan and take responsibility for the p atient management. I performed a substantive portion of the visit. This includes the aspects of: -History -MDM -I independently interpreted the following studies: I reviewed the CT A/P which shows concern for pyelonephritis. Patient presented due to concern for flank pain and dysuria. Found to have pyleo and admitted to medicine for further management. .
--- OUTSIDE RECORDS SUMMARY | 2023-07-11 19:20 | External Medical Summary | Summary of Care ---
Author Name Unknown Organization [facility] Address [address] [place] [address] Phone [phone] Care Team Providers Care Studio Operations Engineer In Charge Name Role Phone Marina Baird MD Primary Care Provider Encounter Details Date Type Department Care Team (Late st Contact Info) Description 01/22/2023 Orders Only [facility] [address] [place] [address] Florence Humphries CHRA [employer] Other*[id number] Allergies Active Allergy Reactions Criticality Noted Date Comments Pollen 12/20/2020 Seasonal allergies documented as of this encounter (statuses as of 01/22/2023) Medications Medication Sig Dispensed Refills Start Date [...] as of this encounter (statuses as of 01/22/2023) Active Problems Problem Noted Date Diagnosed Date [...] as of this encounter (statuses as of 01/22/2023) Resolved Problems Problem Noted Date Diagnosed Date Resolved Date Malignant neoplasm of corpus uteri 08/28/2016 08/28/2016 Depression 05/19/2010 03/10/2019 Dyslipidemia, goal LDL below 160 05/17/2008 03/15/2009 Overview: Per Lipid Taxonomy. Osteoporosis 04/30/2006 05/23/2015 ADVANCE DIRECTIVE INFORMATION 08/02/2004 08/28/2016 Overview: has one at [employer] layer informed that she could bring it in to be scanned documented as of this encounter (statuses as of 01/22/2023) Immunizations Name Administration Dates Next Due COVID-19 mRNA, LNP-s, No Pre serve, 2-Dose Series ([employer] 03/03/2021,07/06/2020,06/15/2020 Covid-19, Mrna, Lnp-s, Pf, B ivalent, [...] 8:20 AM EDT Office Visit Family Practice [facility] [address] [place] [address] Marina Baird MD [address] [place] [address] 03/04/2023 11:45 AM EST Office Visit Urology, [facility] [address] [place] [address] Bridger Mcnamara MD [address] [place] [address] [place] [address] 01/01/2024 1:00 PM EDT Nurse Only Ancillary [facility] [address] [facility] [place] [address] [place], Nurse Annual Wellness [facility] [address] [facility] [place] [address] Scheduled Orders Name Type Priority Associated Diagnoses Orde r Schedule MYCODE SUBSEQUENT ADULT Lab Routine [employer] Other*[id number] Every 6 Months for 2 Occurrences starting 01/22/2023 until 02/11/2024 Scheduled Procedures Name Priority Associated Diagnoses Date/Ti [...] this encounter Medical Devices Implanted Type Area Glass Processing Worker Device Identifier Shelf Expiration Date Model / Serial / Lot Inlay [place] Ureteral Stent Implanted:Qty: 1 on 04/23/2014 by Arlene Medina MD at OR [facility] Right: Ureter INACTIVE [employer] 05/01/2017 [id number] / / [id number] Bard Ureteral Stent 6x26 Implanted:Qty: 1 on 07/02/2014 by Arlene Medina MD at OR [facility] Right: Ureter 07/29/2018 [id number] / / [id number] documented as of this encounter Visit Diagnoses Diagnosis [employer] Other*[id number] documented in this encounter Advance Directives Latest [...] Advance Directives occurred with: Patient/Family Care Teams Studio Operations Engineer In Charge Relationship Specialty Start Date End Date Marina Baird MD [address] [place] [address] PCP - General Internal Medicine 01/02/21 documented as of this encounter
--- OUTSIDE RECORDS SUMMARY | 2023-07-11 19:20 | External Medical Summary | Summary of Care ---
Author Name Unknown Organization [facility] Address [address] [facility] [place] [address] Phone [phone] Care Team Providers Care Rig Builder Name Role Phone Marina Baird MD Primary Care Provider Reason for Visit * Reason Comments Physical-Exam Doing well, no liya rns Encounter Details Date Type Department Care Team (Late st Contact Info) Description 01/30/2023 8:20 AM EDT Office Visit Family Practice [facility] [address] [place] [address] Marina Baird MD [address] [place] [address] Dyslipidemia, goal LDL below 130*; Current mild episode of major depressive disorder without prior episode (HCC); Need for zoster vaccination Allergies Active Allergy Reactions Criticality Noted Date Comments Pollen 12/20/2020 Seasonal allergies documented as of this encounter (statuses as of 01/30/2023) Medications Medication Sig Dispensed Refills Start Date End Date Status Calcium Carb-Cholecalcifer ol 500-600 MG-UNIT Oral Tablet Take 1 Tablet by mouth in the morning. 0 Active Omeprazole 20 MG Oral Capsule Delayed Release (PriLOSEC)Indicati ons:Gastroesophage al reflux disease without esophagitis Take by mouth 1 Capsule in the morning. 1 hour before the first meal of the day. 30 Capsule 5 01/24/2022 Active Additional Information Patient taking differently:20 mg OralDAILY PRN, 1 hour before the first meal of the day, Reported on 12/26/2022 Sertraline HCl 50 MG Oral Tablet (Zoloft)Indication s:Current mild episode of major depressive disorder without prior episode (HCC) Take 1 Tablet by mouth at bedtime. 90 Tablet 3 01/30/2023 Active Atorvastatin Calcium 40 MG Oral Tablet (Lipitor)Indicatio ns:Dyslipidemia, goal LDL below 130 Take 1 Tablet by mouth at bedtime. 90 Tablet 3 01/30/2023 Active Zoster Vac Recomb Adjuvanted 50 MCG/0.5ML Intramuscular Suspension Reconstituted (Shingrix)Indicati ons:Need for zoster vaccination Inject 0.5 mL into a large muscle now and repeat dose in 60 to 180 days 1 Each 1 01/30/2023 Active Atorvastatin Calcium 40 MG Oral Tablet (Lipitor)Indicatio ns:Dyslipidemia, goal LDL below 130 Take 1 Tablet (40 mg) by mouth at bedtime. 90 Tablet 3 03/05/2022 3 Discontinue d(Refill) Sertraline HCl 50 MG Oral Tablet (Zoloft)Indication s:Current mild episode of major depressive disorder without prior episode (HCC) Take 1 Tablet (50 mg) by mouth at bedtime. 90 Tablet 3 03/06/2022 3 Discontinue d(Refill) documented as of this encounter (statuses as of 01/30/2023) Active Problems Problem Noted Date Diagnosed Date [...] as of this encounter (statuses as of 01/30/2023) Resolved Problems Problem Noted Date Diagnosed Date Resolved Date Malignant neoplasm of corpus uteri 08/28/2016 08/28/2016 Depression 05/19/2010 03/10/2019 Dyslipidemia, goal LDL below 160 05/17/2008 03/15/2009 Overview: Per Lipid Taxonomy. 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 that she could bring it in to be scanned documented as of this encounter (statuses as of 01/30/2023) Immunizations Name Administration Dates Next Due COVID-19 [...] Sign Reading Time Taken Comments Blood Pressure 120/68 01/30/2023 8:14 AM EDT Pulse 72 01/30/2023 8:14 AM EDT Temperature 36.4 C (97.6 F) 01/30/2023 8:14 AM ED T Respiratory Rate 16 01/30/2023 8:14 AM EDT Oxygen Saturation 96% 01/30/2023 8:14 AM EDT Inhaled Oxygen Concentration - - Weight 77.1 kg (170 lb) 01/30/2023 8:14 AM EDT Height 165.1 cm (5' 5") 01/30/2023 8:14 AM EDT Body Mass Index 28.29 01/30/2023 8:14 AM EDT documented in this encounter Patient Instructions * Patient Instructions* Marina Baird MD - 01/30/2023 8:55 AM EDT Homework: Call [employer] to ask about support groups: Helpline: [phone] ([phone]) National Office: [phone] There is a [facility] office. You could also ask his doctors at [facility] about support groups. I'll see if I can find therapy that accepts Medicare. Call the [facility] secondary coverage and see if it covers counseling/therapy. IF it does, ask for a list of providers who are in network and call several to make appointments. documented in this encounter Progress Notes * Marina Baird MD - 01/30/2023 8:29 AM EDT Images from the original note were not included. History of Present Illness Melissa Ferreira is a 72 year old female that presents for Physical-Exam (Doing well, no concerns) Older son has Girdletree's. He was living with her but they were arguing. She found him section 8 housing in his working to get him blended case management. He does not have access to any of her finances. She does not have concerns about physical safety. She continues to help him with laundry and other daily tasks. She will buy him some food. They arranged admission for him to a Girdletree's facility in [place] but he did not want to go. He has struggled with alcohol use. Younger son does not have the Girdletree's gene. Adult protective Services got involved because of the arguing. See other encounter regarding documentation they recently requested. Mood - sertraline 50. Feels happy with current dose. Lipids - atorvastatin 40 Vitamin-D deficiency - Not taking supplement Right ureteral stent - follows with Urology Breast cancer screening: mammogram normal 01/2022 Colon cancer screening: Colonoscopy 2017, repeat 10 years Cervical cancer screening: Status post hysterectomy in 1994 for malignancy, multiple subsequent Paps normal. General Distillery Worker indicated no further Pap smears needed. Not exercising regularly. No concerns about eating. Wakes at night, takes a nap during the day. medication and allergy list reviewed Past medical history and problem list reviewed No lightheadedness/dizziness. No vision/hearing problems No teeth/mouth problems. Has been to dentist recently. No chest pain/palpitations No dyspnea No heartburn, constipation/diarrhea. No changing moles or rashes. Physical Exam Vitals: 01/30/23 0814 Temp: 36.4 C (97.6 F) Pulse: 72 Resp: 16 SpO2: 96% BP: 120/68 BMI: 28.29 BP Readings from Last 3 Encounters: 01/30/23 120/68 12/26/22 145/65 11/05/22 107/55 Wt Readings from Last 3 Encounters: 01/30/23 77.1 kg (170 lb) 12/26/22 78.5 kg (173 lb) 11/05/22 76.7 kg (169 lb) Physical Exam Vitals and nursing note reviewed. Constitutional: General: She is not in acute distress. Appearance: Normal appearance. She is not ill-appearing. HENT: Head: Normocephalic and atraumatic. Right Ear: Tympanic membrane, ear canal and external ear normal. There is no impacted cerumen. Left Ear: Tympanic membrane, ear canal and external ear normal. There is no impacted cerumen. Nose: Nose normal. Mouth/Throat: Mouth: Mucous membranes are moist. Pharynx: Oropharynx is clear. Eyes: General: No scleral icterus. Conjunctiva/sclera: Conjunctivae normal. Pupils: Pupils are equal, round, and reactive to light. Neck: Thyroid: No thyroid mass, thyromegaly or thyroid tenderness. Cardiovascular: Rate and Rhythm: Normal rate and regular rhythm. Heart sounds: No murmur heard. Pulmonary: Effort: Pulmonary effort is normal. Breath sounds: Normal breath sounds. Musculoskeletal: Right lower leg: No edema. Left lower leg: No edema. Lymphadenopathy: Cervical: No cervical adenopathy. Skin: General: Skin is warm and dry. Neurological: Mental Status: She is alert. Psychiatric: Mood and Affect: Mood normal. Behavior: Behavior normal. I have reviewed the following results: CMP, Lipid Panel, CBC, and 25-Hydroxy Vit D Assessment and Plan Dyslipidemia, goal LDL below 130 Continue current dose. - Atorvastatin Calcium 40 MG Oral Tablet (Lipitor); Take 1 Tablet by mouth at bedtime. Current mild episode of major depressive disorder without prior episode (HCC) Continue current dose. Encouraged physical activity and skipping her daytime nap. - Sertraline HCl 50 MG Oral Tablet (Zoloft); Take 1 Tablet by mouth at bedtime. Need for zoster vaccination - Zoster Vac Recomb Adjuvanted 50 MCG/0.5ML Intramuscular Suspension Reconstituted (Shingrix); Inject 0.5 mL into a large muscle now and repeat dose in 60 to 180 days Patient Instructions Homework: Call [employer] to ask about support groups: Helpline: [phone]-UEYS ([phone]) National Office: [phone] There is a [place] office. You could also ask his doctors at [facility] about support groups. I'll see if I can find therapy that accepts Medicare. [facility] secondary coverage and see if it covers counseling/therapy. IF it does, ask for a list of providers who are in network and call several to make appointments. Wrap-Up Follow Up: Return in about 1 year (around 01/31/2024) for Return with Oli. | For: Return with Oli | Check-out note: Please schedule mammogram Time: I spent a total of 30-39 minutes (exact time 31 mins) on the date of service in preparation, delivery, and documentation of the care provided to Melissa Ferreira excluding any time spent in the performance of separately billed services. documented in this encounter Plan of Treatment Upcoming Encounters Date Type Department Care Team (Late st Contact Info) Description 02/27/2023 12:00 PM EST Imaging Radiology [facility] [address] [facility] [place] [address] 03/04/2023 11:45 AM EST Office Visit Urology, [facility] [address] [facility] [place] [address] Bridger Mcnamara MD [address] [place] [address] 01/01/2024 1:00 PM EDT Nurse Only Ancillary [facility] [address] [facility] [place] [address] [place], Nurse Annual Wellness [address] [place] [address] 02/05/2024 10:00 AM EST Office Visit Family Practice [facility] [address] [facility] [place] [address] Marina Baird MD 132 [facility] [place] [address] Scheduled Procedures Name Priority Associated Diagnoses Date/Ti [...] this encounter Medical Devices Implanted Type Area Manager Heavy Equipment Device Identifier Shelf Expiration Date Model / Serial / Lot Inlay [place] Ureteral Stent Implanted:Qty: 1 on 04/23/2014 by Arlene Medina MD at OR [facility] Right: Ureter INACTIVE [employer] 05/01/2017 [id number] / / [id number] Bard Ureteral Stent 6x26 Implanted:Qty: 1 on 07/02/2014 by Arlene Medina MD at OR [facility] Right: Ureter 07/29/2018 [id number] / / [id number] documented as of this encounter Visit Diagnoses Diagnosis Dyslipidemia, goal LDL below 130- Primary Other and unspecified hyperlipidemia Current mild episode of major depressive disorder without prior episode (HCC) Need for zoster vaccination Need for prophylactic vaccination and inoculation against other viral diseases documented in this encounter Advance Directives Latest [...] Advance Directives occurred with: Patient/Family Care Teams Rig Builder Relationship Specialty Start Date End Date Marina Baird MD [address] [place] [address] PCP - General Internal Medicine 01/02/21 documented as of this encounter
--- OUTSIDE RECORDS SUMMARY | 2023-07-11 19:20 | External Medical Summary | Summary of Care ---
Author Name Unknown Organization [facility] Address [address] [facility] [place] [address] Phone [phone] Care Team Providers Care Fuel Attendant Name Role Phone Marina Baird MD Primary Care Provider Reason for Visit * Reason Onset Date Comments Advice 02/14/2023 Encounter Details Date Type Department Care Team (Late st Contact Info) Description 02/14/2023 Telephone Family Practice [facility] [address] [place] [address] Marina Baird MD [address] [place] [address] Advice Allergies Active Allergy Reactions Criticality Noted Date Comments Pollen 12/20/2020 Seasonal allergies documented as of this encounter (statuses as of 02/15/2023) Medications Medication Sig Dispensed Refills Start Date [...] as of this encounter (statuses as of 02/15/2023) Active Problems Problem Noted Date Diagnosed Date [...] as of this encounter (statuses as of 02/15/2023) Resolved Problems Problem Noted Date Diagnosed Date Resolved Date Malignant neoplasm of corpus uteri 08/28/2016 08/28/2016 Depression 05/19/2010 03/10/2019 Dyslipidemia, goal LDL below 160 05/17/2008 03/15/2009 Overview: Per Lipid Taxonomy. 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 * Telephone Encounter - Karyna Burt MED ASSIST - 02/15/2023 1:58 PM EST message left for patient to call back. * Telephone Encounter - Karyna Burt MED ASSIST - 02/15/2023 12:00 PM EST Phone line is busy. Will try again later. * Telephone Encounter - Marina Baird MD - 02/14/2023 6:11 PM EST Here are three therapists in [place] who accept Medicare: Ellie Robledo [phone] Rhina Chavira [phone] Darryl Eaton [phone] She can also look on for more. Should also check her [facility] secondary coverage for a list of in-network therapists * Telephone Encounter - Arlene Pagan LPN - 02/14/2023 2:25 PM EST Were we to be looking into something for this pt?? * Telephone Encounter - Faiza Recinos OSA - 02/14/2023 11:14 AM EST Pt calling that Dr Baird was suppose to look in to Pt Insurance to see if she can go to Counseling Pt can be reached at [phone] documented in this encounter Plan of Treatment Upcoming Encounters Date Type Department Care Team (Late st Contact Info) Description 02/27/2023 12:00 PM EST Imaging Radiology [facility] 1st Floor, [place] [address] [facility] [place] [address] 03/04/2023 11:45 AM EST Office Visit Urology, [facility] [address] [facility] [place] [address] Bridger Mcnamara MD [address] [place] [address] 01/01/2024 1:00 PM EDT Nurse Only Ancillary [facility] [address] [facility] [place] [address] [facility], Nurse Annual Wellness [address] [place] [address] 02/05/2024 10:00 AM EST Office Visit Family Practice [facility] [address] [facility] [place] [address] Marina Baird MD [address] [facility] [place] [id number] Scheduled Procedures Name Priority Associated Diagnoses Date/Ti me COLONOSCOPY FLEXIBLE PROXIMA L DIAGNOSTIC Recall Encounter for screening colonoscopy Health Maintenance Due Date Last Done Comments Cologuard 08/25/1995 Sigmoidoscopy 08/25/1995 Zoster Vaccines (1 of 2) 2000 Fecal Occult Blood Test 09/05/2001 09/05/2000 COVID-19 Vaccine ( season) 2022 02/12/2022, 03/03/2021, 07/06/2020, Additional history exists Mammogram 02/07/2023 02/07/2022, 11/2021, 2020, Additional history exists Depression Screening 12/27/2023 12/26/2022 [...] this encounter Medical Devices Implanted Type Area Sociology Teacher Device Identifier Shelf Expiration Date Model / Serial / Lot Inlay [place] Ureteral Stent Implanted:Qty: 1 on 04/23/2014 by Arlene Medina MD at OR [facility] Right: Ureter [employer] 05/01/2017 [id number] / / [id number] Bard Ureteral Stent 6x26 Implanted:Qty: 1 on 07/02/2014 by Arlene Medina MD at OR [facility] Right: Ureter 07/29/2018 [id number] / / [id number] documented as of this encounter Advance Directives [...] Advance Directives occurred with: Patient/Family Care Teams Fuel Attendant Relationship Specialty Start Date End Date Marina Baird MD [address] [facility] [place] [address] PCP - General Internal Medicine 01/02/21 documented as of this encounter
[2023-07-11] MEDS: cefTRIAXone SODIUM 2,000 MG in DEXTROSE 5 % MINI-B 50 ML IV SCH (21:30)
[2023-07-12 07:13] LABS: Basophils # (auto) 0.01 K/uL (0.00-0.20); Basophils % (auto) 0.2 %; Eosinophils # (auto) 0.11 K/uL (0.00-0.50); Eosinophils % (auto) 1.7 %; Hematocrit (blood only) 36.3 % (37.0-47.0); Hemoglobin 11.7 g/dl (12.0-16.0); Immature Granulocytes # (auto) 0.02 K/uL (0.01-0.20); Immature Granulocytes % (auto) 0.3 %; Lymphocytes # (auto) 2.13 K/uL (1.20-3.40); Lymphocytes % (auto) 32.5 %; Mean Corpuscular Hemoglobin 30.4 pg (25.0-34.0); Mean Corpuscular Hgb Conc 32.2 g/dL (32.0-36.0); Mean Corpuscular Volume 94.3 fL (80.0-100.0); Mean Platelet Volume 9.8 fL (9.4-12.4); Monocytes # (auto) 0.55 K/uL (0.11-0.59); Monocytes % (auto) 8.4 %; Neutrophils # (auto) 3.74 K/uL (1.40-6.50); Neutrophils % (auto) 56.9 %; Platelet Count 234 K/uL (130-400); RDW Standard Deviation 44.6 fL (36.4-46.3); Red Blood Count 3.85 M/uL (4.20-5.40); White Blood Count 6.56 K/ul (4.8-10.8)
[2023-07-12 07:34] LABS: Calcium 8.3 mg/dl (8.6-10.3); Creatinine Clr Calc Pharmacy 64.6 ml/min; Est GFR (African American) 84.1 ml/min; Est GFR (Non-African American) 72.6 ml/min; Potassium 3.9 mmol/L (3.5-5.1)
--- NOTE | 2023-07-12 14:13 | Hospitalist Progress Note ---
Date of Service July 12, 2023 Assessment & Plan (1) Acute pyelonephritis: Plan: 72-year-old female with past medical history significant for dyslipidemia, right ureteral stricture and hydronephrosis, history of uterine cancer as per patient 25 to 30 years ago s/p radiation treatment and s/p ureteral stent which is exchanged every 5 months and next exchange August 2023, history of depression presents with burning micturition and the right flank pain starting in the morning. Was nauseous. Denies any blood in the urine. No fevers. Normal bowel movements. No chest pain or shortness of breath. No cough. No headache. No runny nose or sore throat. Appetite is okay. Currently resting comfortably and hemodynamically stable. Acute pyelonephritis right side Right severe hydronephrosis on CT scan. Question of proper function of ureteral stent UTI-3 types of taty with Corynebacterium species Empiric Rocephin-will continue with the antibiotic for a total of 5 days Follow cultures-Corynebacterium Appreciate urology input and recommendation-stent has been functioning and she will a follow-up as an outpatient History of uterine cancer S/p radiation S/p ureteral stent No acute symptoms Hyperlipidemia On statin Depression On Zoloft DVT prophylaxis SCDs for now Disposition Medical floor Full code Will be discharged home this afternoon Admission and Anticipated Discharge Date Admission Date: July 11, 2023 Subjective 07/12/2023 The patient was seen and examined in medical floor She has been feeling fine and denies any symptoms No pain with urination, no fever and no chills and no abdominal pain She will be discharged home this afternoon Review of Systems 2 Review of Systems: All systems reviewed and are unremarkable except as noted below Physical Exam Physical Exam: Sitting at the edge of the bed without any acute distress Constitutional: well developed and well nourished; not ill appearing Eyes: PERRL, conjunctivae normal, anicteric sclerae ENMT: external ear and nose normal, oropharynx normal Neck: trachea midline, no thyromegaly Respiratory: no respiratory distress Auscultation: lungs clear to auscultation bilaterally Cardiovascular: Rate/Rhythm: regular rate and regular rhythm; not tachycardic Heart Sounds: normal S1 and normal S2; no murmur Extremities: no edema Gastrointestinal (Abdomen): Inspection/Auscultation: normal bowel sounds; abdomen not distended Percussion/Palpation: abdomen soft; abdomen nontender Musculoskeletal: No acute arthritis involving any of the joint Neurologic: normal touch/pain/proprioception and moves all extremities; no focal motor deficits Psychiatric: A+Ox3, euthymic affect Lymphatic: no cervical or axillary lymphadenopathy Results & Data Results & Data Vital Signs (Past 12 Hours) Vital Signs Temp Pulse Resp BP Pulse Ox O2 Del Method 07/12/23 08:00 36.9 C 68 12 138/70 95 Room Air Laboratory Results Short CBC 07/12/23 Range/Units 06:34 WBC 6.56 (4.8-10.8) K/ul Hgb 11.7 L (12.0-16.0) g/dl Hct 36.3 L (37.0-47.0) % Plt Count 234 (130-400) K/uL BMP 07/12/23 06:34 Sodium 143 Potassium 3.9 Chloride 113 H Carbon Dioxide 25 BUN 17 Creatinine 0.81 Glucose 81 Calcium 8.3 L Medications Administered Current Inpatient Medications Acetaminophen (Acetaminophen 325 Mg Tab) 650 mg PO Q4H PRN PRN Reason: pain/fever Stop: 08/10/23 05:11 Ceftriaxone Sodium 2,000 mg/ (Dextrose) 50 mls @ 100 mls/hr IV Q24H OLVIN; Protocol Stop: 07/21/23 21:59 Last Infusion: 07/11/23 22:00 Dose: Infused Sodium Chloride (Nss) 1,000 mls @ 125 mls/hr IV .Q8H OLVIN Stop: 08/10/23 05:11 Last Admin: 07/12/23 08:40 Dose: 125 mls/hr Polyethylene Glycol (Polyethylene (Miralax) 17 Gm Pack) 17 gm PO DAILY PRN PRN Reason: Constipation Stop: 08/10/23 05:11
[2023-07-12] MEDS: SERTRALINE HCL 50 MG TABLET PO SCH (22:35)
[2023-07-12] MEDS: ATORVASTATIN 40 MG TAB PO SCH (22:35)
--- NOTE | 2023-07-13 12:55 | Hospitalist Progress Note ---
Date of Service July 13, 2023 Assessment & Plan (1) Acute pyelonephritis: Plan: 72-year-old female with past medical history significant for dyslipidemia, right ureteral stricture and hydronephrosis, history of uterine cancer as per patient 25 to 30 years ago s/p radiation treatment and s/p ureteral stent which is exchanged every 5 months and next exchange August 2023, history of depression presents with burning micturition and the right flank pain starting in the morning. Was nauseous. Denies any blood in the urine. No fevers. Normal bowel movements. No chest pain or shortness of breath. No cough. No headache. No runny nose or sore throat. Appetite is okay. Currently resting comfortably and hemodynamically stable. Acute pyelonephritis right side Right severe hydronephrosis on CT scan. Question of proper function of ureteral stent UTI-3 types of taty with Corynebacterium species Empiric Rocephin-will continue with the antibiotic for a total of 5 days Follow cultures-Corynebacterium Appreciate urology input and recommendation-stent has been functioning and she will a follow-up as an outpatient Discussed with the ID specialist She will need intravenous vancomycin if she is in the hospital and oral Zyvox for a total of 10 to 14 days if discharged Zyvox was started from today Discharge this afternoon History of uterine cancer S/p radiation S/p ureteral stent No acute symptoms Hyperlipidemia On statin Depression On Zoloft DVT prophylaxis SCDs for now Disposition Medical floor Full code Will be discharged home this afternoon Admission and Anticipated Discharge Date Admission Date: July 11, 2023 Subjective 07/12/2023 The patient was seen and examined in medical floor She has been feeling fine and denies any symptoms No pain with urination, no fever and no chills and no abdominal pain She will be discharged home this afternoon 07/13/2023 The patient was seen and examined in medical floor She has been feeling much better and denies any back pain or any problem with urination No fever and or chills She wants to go home Review of Systems Review of Systems: All systems reviewed and are unremarkable except as noted below Physical Exam Physical Exam: Sitting at the edge of the bed without any acute distress Constitutional: well developed and well nourished; not ill appearing Eyes: PERRL, conjunctivae normal, anicteric sclerae ENMT: external ear and nose normal, oropharynx normal Neck: trachea midline, no thyromegaly Respiratory: no respiratory distress Auscultation: lungs clear to auscultation bilaterally Cardiovascular: Rate/Rhythm: regular rate and regular rhythm; not tachycardic Heart Sounds: normal S1 and normal S2; no murmur Extremities: no edema Gastrointestinal (Abdomen): Inspection/Auscultation: normal bowel sounds; abdomen not distended Percussion/Palpation: abdomen soft; abdomen nontender Musculoskeletal: No acute arthritis involving any of the joint Neurologic: normal touch/pain/proprioception and moves all extremities; no focal motor deficits Psychiatric: A+Ox3, euthymic affect Lymphatic: no cervical or axillary lymphadenopathy Results & Data Results & Data Vital Signs (Past 12 Hours) Vital Signs Temp Pulse Resp BP Pulse Ox O2 Del Method 07/13/23 07:52 36.5 C 60 16 129/70 94 Room Air Medications Administered Current Inpatient Medications Acetaminophen (Acetaminophen 325 Mg Tab) 650 mg PO Q4H PRN PRN Reason: pain/fever Stop: 08/10/23 05:11 Atorvastatin Calcium (Atorvastatin 40 Mg Tab) 40 mg PO HS OLVIN Stop: 08/11/23 21:54 Last Admin: 07/12/23 22:35 Dose: 40 mg Sodium Chloride (Nss) 1,000 mls @ 125 mls/hr IV .Q8H OLVIN Stop: 08/10/23 05:11 Last Admin: 07/13/23 06:26 Dose: 125 mls/hr Linezolid (Linezolid 600 Mg Tab) 600 mg PO BID OLVIN Stop: 07/23/23 12:59 Polyethylene Glycol (Polyethylene (Miralax) 17 Gm Pack) 17 gm PO DAILY PRN PRN Reason: Constipation Stop: 08/10/23 05:11 Sertraline HCl (Sertraline Hcl 50 Mg Tablet) 50 mg PO HS OLVIN Stop: 08/11/23 21:54 Last Admin: 07/12/23 22:35 Dose: 50 mg
[2023-07-13] MEDS: LINEZOLID 600 MG TAB PO SCH (13:54)
--- NOTE | 2023-07-14 09:05 | Discharge Summary ---
Date of Service July 13, 2023 Admission HPI Per Admitting Provider 72-year-old female with past medical history significant for dyslipidemia, right ureteral stricture and hydronephrosis, history of uterine cancer as per patient 25 to 30 years ago s/p radiation treatment and s/p ureteral stent which is exchanged every 5 months and next exchange August 2023, history of depression presents with burning micturition and the right flank pain starting in the morning. Was nauseous. Denies any blood in the urine. No fevers. Normal bowel movements. No chest pain or shortness of breath. No cough. No headache. No runny nose or sore throat. Appetite is okay. Currently resting comfortably and hemodynamically stable. Past medical history. As mentioned above Past surgical history. Colonoscopy. Cystoscopy with insertion of stent on right side multiple times, tonsillectomy, total abdominal hysterectomy with removal of tubes Social history. No smoking. No alcohol. No drug use. Family history. Father had pancreatic cancer. Mother had diabetes. Ovarian cancer. Sister had diabetes. Sister had uterine cancer. Son had Curly's disease disease. Niece has uterine cancer. Maternal uncle had mesothelioma Admission Exam Per Admitting Provider Physical Exam: General- Not in distress Head- atraumatic Eyes- PERRL. ENT- oropharynx clear Neck- supple, no JVD. Lungs- clear to auscultation no wheezing or crackles. Heart- regular rate and rhythm; no murmur, no gallop. Abdomen- normal bowel sounds, soft, nontender, no distension, No CVA tenderness. Extremities- no pretibial edema, no erythema seen. Neuro- alert, oriented , PERRL, ; no facial palsy; no dysarthria; moves extremities. Skin- warm & dry Principal Diagnosis Right hydronephrosis with recent ureteric stent placement, stent has been functioning well, no obvious UTI/pyelonephritis Discharge Exam Sitting at the edge of the bed without any acute distress Constitutional well developed and well nourished; not ill appearing Eyes PERRL, conjunctivae normal, anicteric sclerae ENMT external ear and nose normal, oropharynx normal Neck trachea midline, no thyromegaly Respiratory no respiratory distress Auscultation: lungs clear to auscultation bilaterally Cardiovascular Rate/Rhythm: regular rate and regular rhythm; not tachycardic Heart Sounds: normal S1 and normal S2; no murmur Extremities: no edema Gastrointestinal (Abdomen) Inspection/Auscultation: normal bowel sounds; abdomen not distended Percussion/Palpation: abdomen soft; abdomen nontender Neurologic normal touch/pain/proprioception and moves all extremities; no focal motor deficits Psychiatric A+Ox3, euthymic affect Lymphatic no cervical or axillary lymphadenopathy Discharge Data Allergies Allergy/AdvReac Type Severity Reaction Status Date / Time No Known Allergies Allergy Unknown Verified 07/11/23 01:51 Consultations 07/11/23 00:41 ED Decision to Admit Stat 07/11/23 08:00 Consult Urology Routine 07/12/23 15:09 Consult Infectious Diseases Routine Ordered Studies 07/10/23 21:39 CT Abdomen and Pelvis [CT abd pelvis wo con] Stat Hospital Course (1) Acute pyelonephritis: 72-year-old female with past medical history significant for dyslipidemia, right ureteral stricture and hydronephrosis, history of uterine cancer as per patient 25 to 30 years ago s/p radiation treatment and s/p ureteral stent which is exchanged every 5 months and next exchange August 2023, history of depression presents with burning micturition and the right flank pain starting in the morning. Was nauseous. Denies any blood in the urine. No fevers. Normal bowel movements. No chest pain or shortness of breath. No cough. No headache. No runny nose or sore throat. Appetite is okay. Currently resting comfortably and hemodynamically stable. Acute pyelonephritis right side Right severe hydronephrosis on CT scan. Question of proper function of ureteral stent UTI-3 types of taty with Corynebacterium species Empiric Rocephin-will continue with the antibiotic for a total of 5 days Follow cultures-Corynebacterium Appreciate urology input and recommendation-stent has been functioning and she will a follow-up as an outpatient Discussed with the ID specialist She will need intravenous vancomycin if she is in the hospital and oral Zyvox for a total of 10 to 14 days if discharged Zyvox was started from today Discharge this afternoon History of uterine cancer S/p radiation S/p ureteral stent No acute symptoms Hyperlipidemia On statin Depression On Zoloft DVT prophylaxis SCDs for now Disposition Medical floor Full code Will be discharged home this afternoon Total Time Total Time Spent Total Time Spent (In Minutes): 40 minutes Discharge Plan Discharge Items Patient Disposition: Home - Self-Care Reason For Visit: PYELONEPHRITIS Discharge Diagnosis: Right hydronephrosis with recent ureteric stent placement, stent has been functioning well, no obvious UTI/pyelonephritis Condition on Discharge: Good Activity: Resume your previous activity Non-emergency contact: Primary Care Provider Call non-emergency contact if: you have any medication questions and your symptoms worsen Follow-up/Referrals: Marina Baird MD [Primary Care Provider] - (Date & Time 07/18/2023 11:00 AM Provider Marina Baird MD Department Family Practice [facility] ) Diet: Heart Healthy Addtl Attending Provider Instructions: Please take precautions to avoid falls Finish the course of antibiotic. Do not take your sertraline as long as you are on antibiotic. Drink more fluid Please keep appointments with the healthcare providers Pending Studies at Discharge: No Stand-Alone Forms: [employer], Smoking Cessation Medications and DC Order Prescriptions: New linezolid 600 mg Tablet 600 mg PO BID Qty: 20 0RF Continued atorvastatin 40 mg tablet 40 mg PO HS sertraline 50 mg tablet 50 mg PO HS Discharge Orders: Discharge Order (Routine); Ordered 07/13/23 Ordered By: Juan Rodriguez/Other Patient Handouts: Preventing Deep Vein Thrombosis Admission Data Admit Date/Time: 07/11/23 04:14 Attending Provider: Juan Lopez Admit Provider: Ramon Gardiner Primary Care Provider: Marina Baird Other Providers: Ramon Gardiner; Kenny Last; Jon Cueto; Ovidio Haider; Ada Pool; Elgin Simms; Cindy Crisostomo; Leslie Sheffield; Andreas Estrella; Alberta La; Horacio Herrera; Rosy Saez; Saeid Le; Mike Stephens; Jose Kelly; Bang Mcintyre I.; Eliseo Bauman II; Eda Ruffin; Osman Contreras; Michael Ko; Courtney Dykes; Mikhail Car; Donte Slaughter Other Interventions: Discharge Summary Assessment (RN) Last Done: 07/13/23 13:36
== END 2023-07-13 14:19 | disposition home or self-care (01) | DRG 694 ==
LOC: ED 21:23 → EDINP 07-11 04:14 → 3W 07-11 05:13

== ENCOUNTER 2023-08-07 16:54 | Inpatient (IN) ==
--- NOTE | 2023-08-07 17:00 | ED Triage Note ---
Date of Service August 07, 2023 Provider in Triage Author: Ama Mckeon History of Present Illness This patient was briefly evaluated while in triage. An abbreviated physical exam was performed. This patient is a 72-year-old Female who presents to the ED for evaluation of c diff. Reports diagnosed Saturday. Unable to eat, abdominal pain, diarrhea, nausea no vomiting, no fever. Physical Exam CONSTITUTIONAL: in no acute pain or distress, resting comfortably SKIN: pink, warm, dry CARDIAC: regular rate and rhythm RESPIRATORY: in no respiratory distress, lungs clear to auscultation ABDOMEN: + diffuse TTP MSK: 5/5 strength throughout NEURO: no neuro deficits, alert and oriented x 3 Initial orders for labs and / or imaging were placed and patient was placed in the waiting area until a bed is available. Please see further documentation for the full ED course. MDM / Impression Impression Impression: Abdominal pain, Nausea, Diarrhea
[2023-08-07] MEDS: SODIUM CHLORIDE 0.9% 1,000 ML IV STA (17:27)
[2023-08-07] MEDS: KETOROLAC TROMETHAMINE 15 MG/ML VIAL IV STA (17:27)
[2023-08-07] MEDS: ONDANSETRON INJ 2 MG/ML 2 ML VIAL IV STA (17:27)
[2023-08-07 17:55] LABS: Basophils # (auto) 0.05 K/uL (0.00-0.20); Basophils % (auto) 0.2 %; Eosinophils # (auto) 0.02 K/uL (0.00-0.50); Eosinophils % (auto) 0.1 %; Hematocrit (blood only) 39.4 % (37.0-47.0); Hemoglobin 13.2 g/dl (12.0-16.0); Immature Granulocytes # (auto) 0.24 K/uL (0.01-0.20); Immature Granulocytes % (auto) 1.2 %; Lymphocytes # (auto) 1.08 K/uL (1.20-3.40); Lymphocytes % (auto) 5.4 %; Mean Corpuscular Hemoglobin 30.3 pg (25.0-34.0); Mean Corpuscular Hgb Conc 33.5 g/dL (32.0-36.0); Mean Corpuscular Volume 90.6 fL (80.0-100.0); Mean Platelet Volume 9.5 fL (9.4-12.4); Monocytes # (auto) 1.81 K/uL (0.11-0.59); Neutrophils # (auto) 16.87 K/uL (1.40-6.50); Neutrophils % (auto) 84.1 %; Platelet Count 407 K/uL (130-400); RDW Coefficient of Variation 12.6 % (11.5-14.5); RDW Standard Deviation 41.6 fL (36.4-46.3); Red Blood Count 4.35 M/uL (4.20-5.40); White Blood Count 20.07 K/ul (4.8-10.8)
[2023-08-07 18:12] LABS: Alanine Aminotransferase 13 U/L (7-52); Albumin Globulin Ratio 1.3 (0.9-2); Albumin Level 3.5 gm/dl (3.4-5.0); Alkaline Phosphatase 62 U/L (34-104); Anion Gap 10 (3-11); Aspartate Aminotransferase 10 U/L (13-39); BUN Creatinine Ratio 13.4 (10-20); Bilirubin,Total 0.4 mg/dl (0.2-1.0); Blood Urea Nitrogen 11 mg/dl (6-23); Calcium 8.2 mg/dl (8.6-10.3); Carbon Dioxide 24 mmol/L (21-32); Chloride 101 mmol/L (98-107); Est GFR (African American) 82.9 ml/min; Est GFR (Non-African American) 71.5 ml/min; Globulin 2.6 gm/dl (2.5-4.0); Glucose 118 mg/dl (70-99(Fasting)); Lipase 6 U/L (11-82); Potassium 3.8 mmol/L (3.5-5.1); Sodium 135 mmol/L (136-145); Total Protein 6.1 gm/dl (6.0-8.3)
[2023-08-07] MEDS: ACETAMINOPHEN 1,000 MG/100 ML VIAL IV STA (18:30)
[2023-08-07] MEDS: SODIUM CHLORIDE 0.9% 1,000 ML IV SCH (18:30)
--- NOTE | 2023-08-07 18:36 | Emergency Department Note ---
Impression & Plan Abdominal pain, Nausea, Diarrhea, C. difficile colitis, Pancolitis ED Provider Note ED Provider Note NAME: CARMEN DU AGE:72 SEX: Female : 1950 ARRIVES VIA: private vehicle INFORMANT: Patient ED PROVIDER(s): Dona Farrell DO CHIEF COMPLAINT: Dehydration, abdominal pain, diarrhea HPI: This is a 72-year-old female who presents emerged from due to concern for dehydration, abdominal pain, and diarrhea. Patient was seen and evaluated here on Saturday and diagnosed with C. difficile. She was started on oral vancomycin. She states since going home she has had a difficult time staying hydrated she feels nauseated almost all the time. She did try the nausea pill she was discharged with with only minimal improvement of her symptoms. She states whenever she tries to eat or drink something it is immediately followed by an increase in her abdominal pain and then 6-7 episodes of diarrhea. She has not noticed any black or bloody stools. She denies fevers or chills but states she did break out into a cold sweat today with the episodes of diarrhea. Patient had previously taken a course of antibiotics for a kidney infection. PAST MEDICAL HISTORY:See Below PAST SURGICAL HISTORY:See Below FAMILY HISTORY:See Below SOCIAL HISTORY:See Below HOME MEDICATIONS:See Below ALLERGIES:See Below VITALS:See Below PHYSICAL EXAMINATION: GENERAL: alert, well appearing, well nourished, no distress, non-toxic EYE EXAM: normal conjunctiva, PERRL and EOM's grossly intact OROPHARYNX: no exudate, no erythema, lips, buccal mucosa, and tongue normal and mucous membranes are dry NECK: supple, no nuchal rigidity, no adenopathy, non-tender LUNGS: Clear to auscultation. Normal chest wall mechanics, no w/r/r HEART: no murmurs, S1 normal and S2 normal ABDOMEN: abdomen soft, generalized tenderness with palpation, worse on the right abdomen, normo-active bowel sounds, no masses, no rebound or guarding. Dull to percussion. BACK: Back is symmetrical on inspection and there is no deformity, no midline tenderness, no CVA tenderness. SKIN: no rashes, petechiae, orbruising UPPER EXTREMITIES: upper extremities are grossly normal. FROM, nml pulses b/l. LOWER EXTREMITIES: No pitting edema. FROM, nml pulses b/l. NEURO EXAM: Normal sensorium, cranial nerves II-XII grossly intact, normal speech, no facial droop,nogross weakness of arms, no gross weakness of legs. Gross sensation intact. No ataxia. Vital Signs: reviewed and remarkable Differential Diagnosis: Dehydration, EYAD, electrolyte abnormality, colitis, bowel obstruction, perforation, GI bleed, mesenteric ischemia, as well as others were considered MEDICAL DECISION MAKING: This is a 72-year-old female who presents emergency department due to concern for dehydration, persistent nausea, abdominal pain, and worsening diarrhea after recent evaluation here and diagnosis of C. difficile infection. She was afebrile vital signs stable. She was initially given a fluid bolus while awaiting an available ER room as she presented on day of high volume and acuity. Labs drawn and sent, IV established, once a room was available patient was monitored on telemetry. Additional IV fluids added. Patient was given IV Tylenol, oral Bentyl with some improvement in her pain. She was sent for CT of the abdomen and pelvis as a precaution due to increased pain and leukocytosis of 20 noted on labs. Patient with pancolitis seen on CT, likely secondary to her C. difficile. Given concern for ability to maintain good hydration, persistent diarrhea, worsening weakness due to symptoms and the fact the patient lives home alone, we discussed additional inpatient hydration and management at this time. She verbalized understanding was in agreement. Case discussed with the hospitalist team additionally. Patient's UA was abnormal she did recently have a UTI. Culture sent additionally and she was given empiric dose of Rocephin. Sensitivities not available from the last urine culture which grew out Corynebacterium. Consultation(s): 2018: Discussed with Dr. Gardiner, [facility] hospitalist team, for additional evaluation and management. ER Treatment Provided: See below Diagnostics Interpreted By Me: -Cardiac Monitoring: An order was placed for continuous cardiac monitoring. The monitor shows a rate of 82 with normal sinus rhythm. -Laboratory studies: As stated above and show below. -Imaging studies: CT A/P: No obvious perforation Triage Nursing Note Reviewed Prior/Outside Records Reviewed Past Med/Surg History Medical History Depression HLD (hyperlipidemia) Uterine cancer Surgical History Hx of tonsillectomy History of hysterectomy Family History Other Family history non-contributory Social History Smoking Status: Never smoker Hx Alcohol Use: No Hx Substance Use: No Preferred Language: German Communication Ability: Effective [employer] Attorney Required: No Beliefs That Will Affect Care: None Current Living Situation: Alone Current Living Situation Comment: Owns home, ramp to enter Other Information That Helps Us Care for You: No Feels Safe at Home: Yes Safety Concerns: Feels Safe At This Time Assistive Devices: Glasses Allergies Allergies Allergy/AdvReac Type Severity Reaction Status Date / Time No Known Allergies Allergy Unknown Verified 08/05/23 17:36 Home Meds Home Medications Medication Instructions Recorded Confirmed atorvastatin 40 mg tablet 40 mg PO HS 08/07/23 08/07/23 sertraline 50 mg tablet 50 mg PO HS 08/07/23 08/07/23 vancomycin 125 mg capsule 125 mg PO QID 08/07/23 08/07/23 Results & Data (ED) Vital Signs Vital Signs - 24 hr 08/07/23 16:58 08/07/23 18:16 08/07/23 18:17 Temperature 36.5 C Temperature Source Temporal Artery Scan Pulse Rate 98 H 97 H Pulse Rate [Apical] 97 H Pulse Rhythm Regular Pulse Rhythm [Apical] Regular Pulse Strength [Apical] Normal Respiratory Rate 20 16 16 Respiratory Effort / Characteristics Non-Labored Spontaneous Non-Labored Spontaneous Respiratory Depth Normal Normal Respiratory Pattern Regular Blood Pressure 100/55 L Blood Pressure [Left Arm] 118/55 L Blood Pressure Mean 70 Blood Pressure Mean [Left Arm] 76 Pulse Oximetry 95 94 94 Oxygen Delivery Method Room Air Room Air Room Air Sepsis Recent Fever Within 48 Hours No Sepsis New/Unexplained Change in Mental Status N/A Sepsis Action Taken by Nursing No Action Required 08/07/23 18:17 08/07/23 20:21 Temperature Temperature Source Pulse Rate 91 H Pulse Rate [Apical] 78 Pulse Rhythm Pulse Rhythm [Apical] Regular Pulse Strength [Apical] Normal Respiratory Rate 28 H Respiratory Effort / Characteristics Non-Labored Respiratory Depth Normal Respiratory Pattern Regular Blood Pressure Blood Pressure [Left Arm] 96/65 L Blood Pressure Mean Blood Pressure Mean [Left Arm] 75 Pulse Oximetry 94 Oxygen Delivery Method Room Air Sepsis Recent Fever Within 48 Hours Sepsis New/Unexplained Change in Mental Status Sepsis Action Taken by Nursing Laboratory Data 08/07/23 17:28 08/07/23 17:28 Lab Results 08/07/23 08/07/23 Range/Units 17:28 18:13 WBC 20.07 H (4.8-10.8) K/ul RBC 4.35 (4.20-5.40) M/uL Hgb 13.2 (12.0-16.0) g/dl Hct 39.4 (37.0-47.0) % MCV 90.6 (80.0-100.0) fL MCH 30.3 (25.0-34.0) pg MCHC 33.5 (32.0-36.0) g/dL RDW Std Deviation 41.6 (36.4-46.3) fL RDW Coeff of Narayan 12.6 (11.5-14.5) % Plt Count 407 H (130-400) K/uL MPV 9.5 (9.4-12.4) fL Immature Gran % (Auto) 1.2 % Neut % (Auto) 84.1 % Lymph % (Auto) 5.4 % Isabela % (Auto) 9.0 % Eos % (Auto) 0.1 % Baso % (Auto) 0.2 % Neut # (Auto) 16.87 H (1.40-6.50) K/uL Lymph # (Auto) 1.08 L (1.20-3.40) K/uL Isabela # (Auto) 1.81 H (0.11-0.59) K/uL Eos # (Auto) 0.02 (0.00-0.50) K/uL Baso # (Auto) 0.05 (0.00-0.20) K/uL Immature Gran # (Auto) 0.24 H (0.01-0.20) K/uL Sodium 135 L (136-145) mmol/L Potassium 3.8 (3.5-5.1) mmol/L Chloride 101 (98-107) mmol/L Carbon Dioxide 24 (21-32) mmol/L Anion Gap 10 (3-11) BUN 11 (6-23) mg/dl Creatinine 0.82 (0.6-1.2) mg/dl Est Cr Clr Drug Dosing Not Reportable Est GFR ( Amer) 82.9 ml/min Est GFR (Non-Af Amer) 71.5 ml/min BUN/Creatinine Ratio 13.4 (10-20) Glucose 118 H (70-99(Fasting)) mg/dl Calcium 8.2 L (8.6-10.3) mg/dl Total Bilirubin 0.4 (0.2-1.0) mg/dl AST 10 L (13-39) U/L ALT 13 (7-52) U/L Alkaline Phosphatase 62 (34-104) U/L Total Protein 6.1 (6.0-8.3) gm/dl Albumin 3.5 (3.4-5.0) gm/dl Globulin 2.6 (2.5-4.0) gm/dl Albumin/Globulin Ratio 1.3 (0.9-2) Lipase 6 L (11-82) U/L Urine Color Dark Yellow Urine Appearance Turbid A (Clear) Urine pH 6.0 (4.5-7.5) Ur Specific [place] 1.013 (1.000-1.030) Urine Protein 2+ H (Negative) Urine Glucose (UA) Negative (Negative) Urine Ketones Trace H (Negative) Urine Blood 2+ H (Negative) Urine Nitrite Positive A (Negative) Urine Bilirubin Negative (Negative) Urine Urobilinogen Negative (Negative) Ur Leukocyte Esterase 3+ H (Negative) Urine WBC (Auto) >50 H (0-5) /hpf Urine RBC (Auto) 6-10 H (0-2) /hpf U Hyaline Cast (Auto) 3-5 H (0-2) /lpf U Epithel Cells (Auto) 0-2 (0-2) /hpf Urine Bacteria (Auto) 4+ H (None Seen) Granular Casts Present A (None Prsent) /lpf Administered Medications Davila Syrup (Davila Syrup 5 Ml Udp) 5 ml PO Q6 OLVIN Stop: 08/18/23 00:00 Last Admin: 08/07/23 23:27 Dose: 5 ml Documented By: NDL Enoxaparin Sodium (Enoxaparin Inj 40 Mg/0.4 Ml Syr) 40 mg SQ HS OLVIN Stop: 09/06/23 22:47 Last Admin: 08/07/23 23:26 Dose: 40 mg Documented By: NDL Dextrose/Sodium Chloride (D5w And 1/2nss) 1,000 mls @ 125 mls/hr IV .Q8H OLVIN Stop: 09/06/23 22:47 Last Admin: 08/07/23 23:26 Dose: 125 mls/hr Documented By: CARLOS Vancomycin HCl (Vancomycin Hcl 250 Mg/5 Ml Soln) 250 mg PO Q6 OLVIN Stop: 08/18/23 00:00 Last Admin: 08/07/23 23:27 Dose: 250 mg Documented By: CARLOS Discontinued Medications Dicyclomine HCl (Dicyclomine Hcl 10 Mg/Ml 2 Ml Amp/Vial) 20 mg IM NOW ONE Stop: 08/07/23 18:37 Last Admin: 08/07/23 19:01 Dose: 20 mg Documented By: ELEAZAR Sodium Chloride (Nss) 1,000 mls @ 999 mls/hr IV .Q1H1M STA Stop: 08/07/23 18:00 Last Infusion: 08/07/23 20:27 Dose: Infused Documented By: Admin: 08/07/23 17:27 Dose: 999 mls/hr Documented By: KANDI Sodium Chloride (Nss) 1,000 mls @ 125 mls/hr IV .Q8H OLVIN Stop: 09/06/23 18:29 Last Infusion: 08/07/23 23:25 Dose: 0 mls/hr Documented By: Admin: 08/07/23 18:30 Dose: 125 mls/hr Documented By: ELEAZAR Acetaminophen (Ofirmev) 1,000 mg in 100 mls @ 400 mls/hr IV NOW STA Stop: 08/07/23 18:38 Last Infusion: 08/07/23 20:27 Dose: Infused Documented By: Admin: 08/07/23 18:30 Dose: 400 mls/hr Documented By: ELEAZAR Ceftriaxone Sodium (Rocephin) 2,000 mg in 50 mls @ 100 mls/hr IV NOW STA Stop: 08/07/23 20:01 Last Infusion: 08/07/23 21:21 Dose: Infused Documented By: Admin: 08/07/23 20:20 Dose: 100 mls/hr Documented By: DAYAMI Ioversol (Optiray 320 100ml) 93 ml IV ONCE ONE Stop: 08/07/23 18:53 Last Admin: 08/07/23 18:52 Dose: 93 ml Documented By: JEROME Ketorolac Tromethamine (Ketorolac Tromethamine 15 Mg/Ml Vial) 10 mg IV NOW STA Stop: 08/07/23 17:01 Last Admin: 08/07/23 17:27 Dose: 10 mg Documented By: KANDI Ondansetron HCl (Ondansetron Inj 2 Mg/Ml 2 Ml Vial) 4 mg IV NOW STA Stop: 08/07/23 17:01 Last Admin: 08/07/23 17:27 Dose: 4 mg Documented By: KANDI Imaging Data Radiologist's Impression: Abdomen/Pelvis CT 08/07/23 18:36 Exam(s): CT ABDOMEN + PELVIS With Contrast IV Amt: 93 ml optiray 320 EXAM: CT Abdomen and Pelvis With Intravenous Contrast CLINICAL HISTORY: Reason for exam: abd pain, diarrhea, c.diff. TECHNIQUE: Axial computed tomography images of the abdomen and pelvis with intravenous contrast. CTDI is 22.15 mGy and DLP is 1124.99 mGy-cm. Automated exposure control was utilized for the study. A dose lowering technique was utilized adhering to the principles of ALARA. CONTRAST: Patient received 93 ml optiray 320 of IV contrast COMPARISON: CT abdomen/pelvis on 07/10/2023 FINDINGS: Lung bases: Unremarkable. No mass. No consolidation. Mediastinum: Small hiatal hernia. ABDOMEN: Liver: Hepatic steatosis hypodensity in the left liver is too small to definitively characters. Gallbladder and bile ducts: Unremarkable. No calcified stones. No ductal dilation. Pancreas: Unremarkable. No mass. No ductal dilation. Spleen: Unremarkable. No splenomegaly. Adrenals: Unremarkable. No mass. Kidneys and ureters: Severe right hydronephrosis. Moderate proximal and mid right hydroureter. Right-sided ureteral stent in place. No obstructing stone identified. Prominence of the urothelium of the right renal collecting system may represent ureteritis. Neoplasm is not excluded. Left renal cyst. Stomach and bowel: Wall thickening and surrounding fat stranding throughout the colon and rectum, concerning for pancolitis and proctitis. Evaluation of the stomach is limited by underdistention. PELVIS: Appendix: No findings to suggest acute appendicitis. Bladder: Bladder wall thickening is nonspecific. Please correlate with urinalysis to evaluate for cystitis. Reproductive: Prior hysterectomy. ABDOMEN and PELVIS: Intraperitoneal space: Small amount of ascites. No significant fluid collection. Bones/joints: Mild curvature of the spine. Degenerative changes of the spine. Bilateral L5 pars defects. Grade 1 anterolisthesis of L5 on S1. Mild retrolisthesis of L2 on L3. No acute fracture. No dislocation. Soft tissues: Small fat-containing umbilical hernia. Vasculature: Atherosclerotic changes of the vasculature. No aortic aneurysm or dissection. Lymph nodes: Unremarkable. No enlarged lymph nodes. IMPRESSION: 1. Wall thickening and surrounding fat stranding throughout the colon and rectum, concerning for pancolitis and proctitis. 2. Severe right hydronephrosis. Moderate proximal and mid right hydroureter. Right-sided ureteral stent in place. No obstructing stone identified. 3. Prominence of the urothelium of the right renal collecting system may represent ureteritis. Neoplasm is not excluded. 4. Bladder wall thickening is nonspecific. Please correlate with urinalysis to evaluate for cystitis. 5. Small amount of ascites. Electronically signed by: Noelle Vital M.D. 08/07/23 19:27 PM Discharge Plan Visit Data Chief Complaint: GI Assessment Stated Complaint: C-DIF, DIARREA, ABD PAIN, NAUSEA, POOR APPETITE ED Provider: Dona Farrell Discharge Problem: Abdominal pain, Nausea, Diarrhea, C. difficile colitis, Pancolitis Patient Disposition: Admitted As Inpatient Discharge Instructions Interventions: ED Discharge Assessment Last Done: 08/07/23 22:09
[2023-08-07] MEDS: OPTIRAY 320 100ml IV ONE (18:52)
[2023-08-07] MEDS: DICYCLOMINE HCL 10 MG/ML 2 ML AMP/VIAL IM ONE (19:01)
[2023-08-07 19:04] LABS: Appearance Urine Turbid (Clear); Bacteria Urine Automated 4+ (None Seen); Bilirubin Urine Negative (Negative); Blood Urine 2+ (Negative); Color Urine Dark Yellow; Epithelial Cell Urine Auto 0-2 /hpf (0-2); Glucose Urine UA Negative (Negative); Granular Casts Urine Present /lpf (None Prsent); Ketones Urine Trace (Negative); Leukocyte Esterase Urine 3+ (Negative); Nitrite Urine Positive (Negative); Protein Urine 2+ (Negative); Specific Gravity Urine 1.013 (1.000-1.030); Urobilinogen Urine Negative (Negative); WBC Urine Automated >50 /hpf (0-5)
--- NOTE | 2023-08-07 19:28 | CT Scan Report ---
Exam(s): CT ABDOMEN + PELVIS With Contrast IV Amt: 93 ml optiray 320 EXAM: CT Abdomen and Pelvis With Intravenous Contrast CLINICAL HISTORY: Reason for exam: abd pain, diarrhea, c.diff. TECHNIQUE: Axial computed tomography images of the abdomen and pelvis with intravenous contrast. CTDI is 22.15 mGy and DLP is 1124.99 mGy-cm. Automated exposure control was utilized for the study. A dose lowering technique was utilized adhering to the principles of ALARA. CONTRAST: Patient received 93 ml optiray 320 of IV contrast COMPARISON: CT abdomen/pelvis on 07/10/2023 FINDINGS: Lung bases: Unremarkable. No mass. No consolidation. Mediastinum: Small hiatal hernia. ABDOMEN: Liver: Hepatic steatosis hypodensity in the left liver is too small to definitively characters. Gallbladder and bile ducts: Unremarkable. No calcified stones. No ductal dilation. Pancreas: Unremarkable. No mass. No ductal dilation. Spleen: Unremarkable. No splenomegaly. Adrenals: Unremarkable. No mass. Kidneys and ureters: Severe right hydronephrosis. Moderate proximal and mid right hydroureter. Right-sided ureteral stent in place. No obstructing stone identified. Prominence of the urothelium of the right renal collecting system may represent ureteritis. Neoplasm is not excluded. Left renal cyst. Stomach and bowel: Wall thickening and surrounding fat stranding throughout the colon and rectum, concerning for pancolitis and proctitis. Evaluation of the stomach is limited by underdistention. PELVIS: Appendix: No findings to suggest acute appendicitis. Bladder: Bladder wall thickening is nonspecific. Please correlate with urinalysis to evaluate for cystitis. Reproductive: Prior hysterectomy. ABDOMEN and PELVIS: Intraperitoneal space: Small amount of ascites. No significant fluid collection. Bones/joints: Mild curvature of the spine. Degenerative changes of the spine. Bilateral L5 pars defects. Grade 1 anterolisthesis of L5 on S1. Mild retrolisthesis of L2 on L3. No acute fracture. No dislocation. Soft tissues: Small fat-containing umbilical hernia. Vasculature: Atherosclerotic changes of the vasculature. No aortic aneurysm or dissection. Lymph nodes: Unremarkable. No enlarged lymph nodes. IMPRESSION: 1. Wall thickening and surrounding fat stranding throughout the colon and rectum, concerning for pancolitis and proctitis. 2. Severe right hydronephrosis. Moderate proximal and mid right hydroureter. Right-sided ureteral stent in place. No obstructing stone identified. 3. Prominence of the urothelium of the right renal collecting system may represent ureteritis. Neoplasm is not excluded. 4. Bladder wall thickening is nonspecific. Please correlate with urinalysis to evaluate for cystitis. 5. Small amount of ascites. Electronically signed by: Noelle Vital M.D. 08/07/23 19:27 PM
[2023-08-07] MEDS: cefTRIAXone SODIUM 2,000 MG/50 ML BAG IV STA (20:20)
--- NOTE | 2023-08-07 21:05 | History & Physical Report ---
Date of Service August 07, 2023 Assessment & Plan (1) Colitis due to Clostridioides difficile: Plan: 72-year-old female with past medical history significant for dyslipidemia, right ureteral stricture and hydronephrosis, history of uterine cancer as per patient 25 to 30 years ago s/p radiation treatment and s/p ureteral stent which is exchanged every 5 months and next exchange In few weeks as per patient, history of depression who was recently in the hospital for acute right perinephritis and cultures grew corynebacterium was seen by ID and urology and she was treated initially with Rocephin and later with IV Vanco and discharged on oral Zyvox to complete 10 to 14 days of antibiotics.Then patient developed abdominal pain, nausea and diarrhea and was in the ER on August 04.Outpatient stool culture came back C. difficile. She was discharged with p.o. vancomycin from the ER.Per epic PCP prescribed Dificid. Patient states she is taking only p.o. vancomycin.Having lot of nausea not able to eat anything. And still having a lot of diarrhea. And diffuse abdominal pain 7 /10 severity.Denies any fevers. Micturating okay. No hematuria. No blood in the stools. No chest pain or shortness of breath. Had some headache but it got resolved. Currently no cough. No blurred vision. No runny nose or sore throat. Hemodynamics are okay. Ambulating okay as per patient. Colitis due to C. difficile CT scan showing pancolitis and proctitis Will continue with p.o. vancomycin to 250 mg every 6 hours. Clear liquid diet. IV fluids. GI consult in a.m. for further recommendations UTI Per Ct scan.:ureteritis. Neoplasm is not excluded. Severe right hydronephrosis. Moderate proximal and mid right hydroureter. Right-sided ureteral stent in place. No obstructing stone identified. On Rocephin. Will follow cultures. Urology consult for further recommendations. History of uterine cancer S/p radiation S/p ureteral stent Follows with urology Hyperlipidemia On statin Depression On Zoloft DVT prophylaxis Lovenox Disposition Medical/Tele floor Full code History of Present Illness Chief Complaint: Abdominal pain, nausea and diarrhea Primary Care Provider: Marina Baird MD 72-year-old female with past medical history significant for dyslipidemia, right ureteral stricture and hydronephrosis, history of uterine cancer as per patient 25 to 30 years ago s/p radiation treatment and s/p ureteral stent which is exchanged every 5 months and next exchange In few weeks as per patient, history of depression who was recently in the hospital for acute right perinephritis and cultures grew corynebacterium was seen by ID and urology and she was treated initially with Rocephin and later with IV Vanco and discharged on oral Zyvox to complete 10 to 14 days of antibiotics.Then patient developed abdominal pain, nausea and diarrhea and was in the ER on August 04.Outpatient stool culture came back C. difficile. She was discharged with p.o. vancomycin from the ER.Per epic PCP prescribed Dificid. Patient states she is taking only p.o. vancomycin.Having lot of nausea not able to eat anything. And still having a lot of diarrhea. And diffuse abdominal pain 7 /10 severity.Denies any fevers. Micturating okay. No hematuria. No blood in the stools. No chest pain or shortness of breath. Had some headache but it got resolved. Currently no cough. No blurred vision. No runny nose or sore throat. Hemodynamics are okay. Ambulating okay as per patient. Past medical history. As mentioned above Past surgical history. Colonoscopy. Cystoscopy with insertion of stent on right side multiple times, tonsillectomy, total abdominal hysterectomy with luis a smith of tubes Social history. No smoking. No alcohol. No drug use. Family history. Father had pancreatic cancer. Mother had diabetes. Ovarian cancer. Sister had diabetes. Sister had uterine cancer. Son had [place]'s disease disease. Niece has uterine cancer. Maternal uncle had mesothelioma Allergies Allergy/AdvReac Type Severity Reaction Status Date / Time No Known Allergies Allergy Unknown Verified 08/05/23 17:36 Home Medications Medication Instructions Recorded Confirmed Type atorvastatin 40 mg tablet 40 mg PO HS 08/07/23 08/07/23 History sertraline 50 mg tablet 50 mg PO HS 08/07/23 08/07/23 History vancomycin 125 mg capsule 125 mg PO QID 08/07/23 08/07/23 History Past Med/Surg History Medical History Depression HLD (hyperlipidemia) Uterine cancer Surgical History Hx of tonsillectomy History of hysterectomy Family History Other Family history non-contributory Social History Smoking Status: Never smoker Hx Alcohol Use: No Hx Substance Use: No Preferred Language: Samoan Communication Ability: Effective Associate Application Developer Required: No Beliefs That Will Affect Care: None Current Living Situation: Alone Current Living Situation Comment: Owns home, ramp to enter Other Information That Helps Us Care for You: No Feels Safe at Home: Yes Safety Concerns: Feels Safe At This Time Assistive Devices: Glasses Review of Systems Review of Systems: All systems reviewed & are unremarkable except as noted in HPI & below Physical Exam Physical Exam: General- Not in distress Head- atraumatic Eyes- PERRL. ENT- oropharynx clear Neck- supple, no JVD. Lungs- clear to auscultation no wheezing or crackles. Heart- regular rhythm; no murmur, no gallop. Abdomen- normal bowel sounds, soft, mild diffuse tender , no distension. Extremities- no pretibial edema, no erythema seen. Neuro- alert, oriented PERRL, no facial palsy; no dysarthria; moves extremities. Results & Data Results & Data Vital Signs (Past 12 Hours) Vital Signs Temp Pulse Pulse Resp BP BP Pulse Ox 08/07/23 20:21 78 28 H 96/65 L 94 08/07/23 18:17 91 H 08/07/23 18:17 97 H 16 94 08/07/23 18:16 97 H 16 118/55 L 94 08/07/23 16:58 36.5 C 98 H 20 100/55 L 95 O2 Del Method 08/07/23 20:21 Room Air 08/07/23 18:17 08/07/23 18:17 Room Air 08/07/23 18:16 Room Air 08/07/23 16:58 Room Air Diagnostic Findings Laboratory Results WBC 20.07 K/ul (4.8-10.8) H 08/07/23 17:28 RBC 4.35 M/uL (4.20-5.40) 08/07/23 17:28 Hgb 13.2 g/dl (12.0-16.0) 08/07/23 17:28 Hct 39.4 % (37.0-47.0) 08/07/23 17:28 MCV 90.6 fL (80.0-100.0) 08/07/23 17: MCH 30.3 pg (25.0-34.0) 08/07/23 17: MCHC 33.5 g/dL (32.0-36.0) 08/07/23 17: RDW Std Deviation 41.6 fL (36.4-46.3) 08/07/23 17: RDW Coeff of Narayan 12.6 % (11.5-14.5) 08/07/23 17: Plt Count 407 K/uL (130-400) H 08/07/23 17: MPV 9.5 fL (9.4-12.4) 08/07/23 17: Immature Gran % (Auto) 1.2 % 08/07/23 17: Neut % (Auto) 84.1 % 08/07/23 17:28 Lymph % (Auto) 5.4 % 08/07/23 17:28 [facility] % (Auto) 9.0 % 08/07/23 17:28 Eos % (Auto) 0.1 % 08/07/23 17:28 Baso % (Auto) 0.2 % 08/07/23 17: Neut # (Auto) 16.87 K/uL (1.40-6.50) H 08/07/23 17:28 Lymph # (Auto) 1.08 K/uL (1.20-3.40) L 08/07/23 17:28 [facility] # (Auto) 1.81 K/uL (0.11-0.59) H 08/07/23 17:28 Eos # (Auto) 0.02 K/uL (0.00-0.50) 08/07/23 17:28 Baso # (Auto) 0.05 K/uL (0.00-0.20) 08/07/23 17: Immature Gran # (Auto) 0.24 K/uL (0.01-0.20) H 08/07/23 17:28 Sodium 135 mmol/L (136-145) L 08/07/23 17:28 Potassium 3.8 mmol/L (3.5-5.1) 08/07/23 17:28 Chloride 101 mmol/L (98-107) 08/07/23 17:28 Carbon Dioxide 24 mmol/L (21-32) 08/07/23 17:28 Anion Gap 10 (3-11) 08/07/23 17:28 BUN 11 mg/dl (6-23) 08/07/23 17:28 Creatinine 0.82 mg/dl (0.6-1.2) 08/07/23 17:28 Est Cr Clr Drug Dosing Not Reportable 08/07/23 17:28 Est GFR ( Amer) 82.9 ml/min 08/07/23 17:28 Est GFR (Non-Af Amer) 71.5 ml/min 08/07/23 17:28 BUN/Creatinine Ratio 13.4 (10-20) 08/07/23 17:28 Glucose 118 mg/dl (70-99(Fasting)) H 08/07/23 17:28 Calcium 8.2 mg/dl (8.6-10.3) L 08/07/23 17:28 Total Bilirubin 0.4 mg/dl (0.2-1.0) 08/07/23 17:28 AST 10 U/L (13-39) L 08/07/23 17:28 ALT 13 U/L (7-52) 08/07/23 17:28 Alkaline Phosphatase 62 U/L (34-104) 08/07/23 17:28 Total Protein 6.1 gm/dl (6.0-8.3) 08/07/23 17:28 Albumin 3.5 gm/dl (3.4-5.0) 08/07/23 17:28 Globulin 2.6 gm/dl (2.5-4.0) 08/07/23 17:28 Albumin/Globulin Ratio 1.3 (0.9-2) 08/07/23 17:28 Lipase 6 U/L (11-82) L 08/07/23 17:28 Urine Color Dark Yellow 08/07/23 18:13 Urine Appearance Turbid (Clear) A 08/07/23 18:13 Urine pH 6.0 (4.5-7.5) 08/07/23 18:13 Ur Specific [place] 1.013 (1.000-1.030) 08/07/23 18:13 Urine Protein 2+ (Negative) H 08/07/23 18:13 Urine Glucose (UA) Negative (Negative) 08/07/23 18:13 Urine Ketones Trace (Negative) H 08/07/23 18:13 Urine Blood 2+ (Negative) H 08/07/23 18:13 Urine Nitrite Positive (Negative) A 08/07/23 18:13 Urine Bilirubin Negative (Negative) 08/07/23 18:13 Urine Urobilinogen Negative (Negative) 08/07/23 18:13 Ur Leukocyte Esterase 3+ (Negative) H 08/07/23 18:13 Urine WBC (Auto) >50 /hpf (0-5) H 08/07/23 18:13 Urine RBC (Auto) 6-10 /hpf (0-2) H 08/07/23 18:13 U Hyaline Cast (Auto) 3-5 /lpf (0-2) H 08/07/23 18:13 U Epithel Cells (Auto) 0-2 /hpf (0-2) 08/07/23 18:13 Urine Bacteria (Auto) 4+ (None Seen) H 08/07/23 18:13 Granular Casts Present /lpf (None Prsent) A 08/07/23 18:13 Impressions Abdomen/Pelvis CT 08/07/23 18:36 Exam(s): CT ABDOMEN + PELVIS With Contrast IV Amt: 93 ml optiray 320 EXAM: CT Abdomen and Pelvis With Intravenous Contrast CLINICAL HISTORY: Reason for exam: abd pain, diarrhea, c.diff. TECHNIQUE: Axial computed tomography images of the abdomen and pelvis with intravenous contrast. CTDI is 22.15 mGy and DLP is 1124.99 mGy-cm. Automated exposure control was utilized for the study. A dose lowering technique was utilized adhering to the principles of ALARA. CONTRAST: Patient received 93 ml optiray 320 of IV contrast COMPARISON: CT abdomen/pelvis on 07/10/2023 FINDINGS: Lung bases: Unremarkable. No mass. No consolidation. Mediastinum: Small hiatal hernia. ABDOMEN: Liver: Hepatic steatosis hypodensity in the left liver is too small to definitively characters. Gallbladder and bile ducts: Unremarkable. No calcified stones. No ductal dilation. Pancreas: Unremarkable. No mass. No ductal dilation. Spleen: Unremarkable. No splenomegaly. Adrenals: Unremarkable. No mass. Kidneys and ureters: Severe right hydronephrosis. Moderate proximal and mid right hydroureter. Right-sided ureteral stent in place. No obstructing stone identified. Prominence of the urothelium of the right renal collecting system may represent ureteritis. Neoplasm is not excluded. Left renal cyst. Stomach and bowel: Wall thickening and surrounding fat stranding throughout the colon and rectum, concerning for pancolitis and proctitis. Evaluation of the stomach is limited by underdistention. PELVIS: Appendix: No findings to suggest acute appendicitis. Bladder: Bladder wall thickening is nonspecific. Please correlate with urinalysis to evaluate for cystitis. Reproductive: Prior hysterectomy. ABDOMEN and PELVIS: Intraperitoneal space: Small amount of ascites. No significant fluid collection. Bones/joints: Mild curvature of the spine. Degenerative changes of the spine. Bilateral L5 pars defects. Grade 1 anterolisthesis of L5 on S1. Mild retrolisthesis of L2 on L3. No acute fracture. No dislocation. Soft tissues: Small fat-containing umbilical hernia. Vasculature: Atherosclerotic changes of the vasculature. No aortic aneurysm or dissection. Lymph nodes: Unremarkable. No enlarged lymph nodes. IMPRESSION: 1. Wall thickening and surrounding fat stranding throughout the colon and rectum, concerning for pancolitis and proctitis. 2. Severe right hydronephrosis. Moderate proximal and mid right hydroureter. Right-sided ureteral stent in place. No obstructing stone identified. 3. Prominence of the urothelium of the right renal collecting system may represent ureteritis. Neoplasm is not excluded. 4. Bladder wall thickening is nonspecific. Please correlate with urinalysis to evaluate for cystitis. 5. Small amount of ascites. Electronically signed by: Noelle Vital M.D. 08/07/23 19:27 PM Code Status & VTE Plan VTE Prophylaxis Plan VTE Prophylaxis will be ordered: Yes
[2023-08-07] MEDS ORDERED: NITROGLYCERIN SL 0.4 MG/TAB TAB SL PRN (22:48)
[2023-08-07] MEDS ORDERED: ACETAMINOPHEN 325 MG TAB PO PRN (22:48)
[2023-08-07] MEDS: ENOXAPARIN INJ 40 MG/0.4 ML SYR SQ SCH (23:26)
[2023-08-07] MEDS: D5W AND 1/2NSS 1,000 ML IV SCH (23:26)
[2023-08-07] MEDS: CHERRY SYRUP 5 ML UDP PO SCH (23:27)
[2023-08-07] MEDS: VANCOMYCIN HCL 250 MG/5 ML SOLN PO SCH (23:27)
[2023-08-08 06:23] LABS: Basophils # (auto) 0.02 K/uL (0.00-0.20); Basophils % (auto) 0.1 %; Eosinophils # (auto) 0.09 K/uL (0.00-0.50); Eosinophils % (auto) 0.5 %; Hematocrit (blood only) 34.7 % (37.0-47.0); Hemoglobin 11.7 g/dl (12.0-16.0); Immature Granulocytes # (auto) 0.13 K/uL (0.01-0.20); Immature Granulocytes % (auto) 0.8 %; Lymphocytes # (auto) 0.89 K/uL (1.20-3.40); Lymphocytes % (auto) 5.3 %; Mean Corpuscular Hemoglobin 30.7 pg (25.0-34.0); Mean Corpuscular Hgb Conc 33.7 g/dL (32.0-36.0); Mean Corpuscular Volume 91.1 fL (80.0-100.0); Mean Platelet Volume 9.6 fL (9.4-12.4); Monocytes # (auto) 1.47 K/uL (0.11-0.59); Monocytes % (auto) 8.8 %; Neutrophils # (auto) 14.08 K/uL (1.40-6.50); Neutrophils % (auto) 84.5 %; Platelet Count 368 K/uL (130-400); RDW Coefficient of Variation 12.8 % (11.5-14.5); RDW Standard Deviation 42.2 fL (36.4-46.3); Red Blood Count 3.81 M/uL (4.20-5.40); White Blood Count 16.68 K/ul (4.8-10.8)
[2023-08-08] MEDS: DICYCLOMINE HCL 10 MG CAP PO PRN (06:25)
[2023-08-08 06:47] LABS: BUN Creatinine Ratio 13.4 (10-20); Calcium 7.3 mg/dl (8.6-10.3); Creatinine Clr Calc Pharmacy 65.4 ml/min; Est GFR (African American) 82.9 ml/min; Est GFR (Non-African American) 71.5 ml/min; Magnesium 1.9 mg/dl (1.7-2.4); Phosphorus 2.5 mg/dl (2.5-4.9); Potassium 3.8 mmol/L (3.5-5.1)
--- NOTE | 2023-08-08 10:22 | Gastrointestinal Consultation ---
Date of Consultation August 08, 2023 Assessment & Plan (1) C. difficile colitis: (2) Diarrhea: Plan Patient is a 72 y.o. female with a history of acute pyelonephritis admitted one month ago, readmitted with C difficile colitis secondary to recent abx use, failing outpatient management. -Given this is her first occurrence even with WBC>15,000, guidelines recommend management with Vancomycin at dosing of 125 mg QID. -Treatment should be a total of 10 days. -Recommend infection control measures. -Supportive care per primary team. Thank you for allowing us to participate in the care of this patient. If you have any questions or concerns, please do not hesitate to contact us. History of Present Illness Reason for Consultation: C Difficile colitis Requesting Physician: Dr. Gardiner Attending Physician: Juan Lopez MD History of Present Illness Patient is a 72 y.o. female with a history of acute pyelonephritis recently admitted approximately one month ago for IV antibiotics admitted now C Difficile colitis diagnosed as an outpatient due to failing outpatient treatment. She did have a CT on admission demonstrating pancolitis. +leukocytosis of 16.68 with a mild anemia noted. She has been started on high dose Vancomycin at 250 mg QID by primary team. Since starting the medication, she reports she has had some improvement. Reports 6 small, urgent and liquid bms overnight with associated lower abdominal cramping pain. No rectal bleeding or bloating reported. States the nausea has resolved. No vomiting. Allergies Allergy/AdvReac Type Severity Reaction Status Date / Time No Known Allergies Allergy Unknown Verified 08/05/23 17:36 Home Medications Medication Instructions Recorded Confirmed Type atorvastatin 40 mg tablet 40 mg PO HS 08/07/23 08/07/23 History sertraline 50 mg tablet 50 mg PO HS 08/07/23 08/07/23 History vancomycin 125 mg capsule 125 mg PO QID 08/07/23 08/07/23 History Patient History Medical History Depression HLD (hyperlipidemia) Uterine cancer Surgical History Hx of tonsillectomy History of hysterectomy Family History Other Family history non-contributory Social History Smoking Status: Never smoker Hx Alcohol Use: No Hx Substance Use: No Preferred Language: Citizen Of [place] Communication Ability: Effective Manufacturing Controller Required: No Beliefs That Will Affect Care: None Current Living Situation: Alone Current Living Situation Comment: Owns home, ramp to enter Other Information That Helps Us Care for You: No Feels Safe at Home: Yes Safety Concerns: Feels Safe At This Time Assistive Devices: Glasses Review of Systems Constitutional: + fatigue; no fever and no chills Gastrointestinal: as per Subjective / HPI Physical Exam Constitutional: WD/WN, vitals as above Respiratory: normal respiratory effort, lungs clear to auscultation Cardiovascular: RRR, no murmur, no edema Gastrointestinal (Abdomen): normal bowel sounds, soft, nontender, no hepatosplenomegaly Psychiatric: A+Ox3, euthymic affect Results & Data Vital Signs (Past 12 Hours) Vital Signs Temp Pulse Pulse Resp BP Pulse Ox Pulse Ox 08/08/23 08:46 36.9 C 81 16 100/63 93 08/08/23 03:53 36.7 C 85 20 91/55 L 94 08/07/23 22:55 76 08/07/23 22:49 37 C 84 19 107/69 97 08/07/23 22:48 37 C 84 19 107/69 97 08/07/23 22:48 97 O2 Del Method O2 Del Method 08/08/23 08:46 Room Air 08/08/23 03:53 Room Air 08/07/23 22:55 08/07/23 22:49 Room Air 08/07/23 22:48 Room Air 08/07/23 22:48 Room Air Diagnostic Findings Laboratory Results WBC 16.68 K/ul (4.8-10.8) H 08/08/23 05:44 RBC 3.81 M/uL (4.20-5.40) L 08/08/23 05:44 Hgb 11.7 g/dl (12.0-16.0) L 08/08/23 05:44 Hct 34.7 % (37.0-47.0) L 08/08/23 05:44 MCV 91.1 fL (80.0-100.0) 08/08/23 05:44 MCH 30.7 pg (25.0-34.0) 08/08/23 05:44 MCHC 33.7 g/dL (32.0-36.0) 08/08/23 05:44 RDW Std Deviation 42.2 fL (36.4-46.3) 08/08/23 05:44 RDW Coeff of Narayan 12.8 % (11.5-14.5) 08/08/23 05:44 Plt Count 368 K/uL (130-400) 08/08/23 05:44 MPV 9.6 fL (9.4-12.4) 08/08/23 05:44 Immature Gran % (Auto) 0.8 % 08/08/23 05:44 Neut % (Auto) 84.5 % 08/08/23 05:44 Lymph % (Auto) 5.3 % 08/08/23 05:44 [place] % (Auto) 8.8 % 08/08/23 05:44 Eos % (Auto) 0.5 % 08/08/23 05:44 Baso % (Auto) 0.1 % 08/08/23 05:44 Neut # (Auto) 14.08 K/uL (1.40-6.50) H 08/08/23 05:44 Lymph # (Auto) 0.89 K/uL (1.20-3.40) L 08/08/23 05:44 [place] # (Auto) 1.47 K/uL (0.11-0.59) H 08/08/23 05:44 Eos # (Auto) 0.09 K/uL (0.00-0.50) 08/08/23 05:44 Baso # (Auto) 0.02 K/uL (0.00-0.20) 08/08/23 05:44 Immature Gran # (Auto) 0.13 K/uL (0.01-0.20) 08/08/23 05:44 Sodium 137 mmol/L (136-145) 08/08/23 05:44 Potassium 3.8 mmol/L (3.5-5.1) 08/08/23 05:44 Chloride 104 mmol/L (98-107) 08/08/23 05:44 Carbon Dioxide 27 mmol/L (21-32) 08/08/23 05:44 Anion Gap 6 (3-11) 08/08/23 05:44 BUN 11 mg/dl (6-23) 08/08/23 05:44 Creatinine 0.82 mg/dl (0.6-1.2) 08/08/23 05:44 Est Cr Clr Drug Dosing 65.4 ml/min 08/08/23 05:44 Est GFR ( Amer) 82.9 ml/min 08/08/23 05:44 Est GFR (Non-Af Amer) 71.5 ml/min 08/08/23 05:44 BUN/Creatinine Ratio 13.4 (10-20) 08/08/23 05:44 Glucose 128 mg/dl (70-99(Fasting)) H 08/08/23 05:44 Calcium 7.3 mg/dl (8.6-10.3) L 08/08/23 05:44 Phosphorus 2.5 mg/dl (2.5-4.9) 08/08/23 05:44 Magnesium 1.9 mg/dl (1.7-2.4) 08/08/23 05:44 Total Bilirubin 0.4 mg/dl (0.2-1.0) 08/07/23 17:28 AST 10 U/L (13-39) L 08/07/23 17:28 ALT 13 U/L (7-52) 08/07/23 17:28 Alkaline Phosphatase 62 U/L (34-104) 08/07/23 17:28 Total Protein 6.1 gm/dl (6.0-8.3) 08/07/23 17:28 Albumin 3.5 gm/dl (3.4-5.0) 08/07/23 17:28 Globulin 2.6 gm/dl (2.5-4.0) 08/07/23 17:28 Albumin/Globulin Ratio 1.3 (0.9-2) 08/07/23 17:28 Lipase 6 U/L (11-82) L 08/07/23 17:28 Urine Color Dark Yellow 08/07/23 18:13 Urine Appearance Turbid (Clear) A 08/07/23 18:13 Urine pH 6.0 (4.5-7.5) 08/07/23 18:13 Ur Specific [place] 1.013 (1.000-1.030) 08/07/23 18:13 Urine Protein 2+ (Negative) H 08/07/23 18:13 Urine Glucose (UA) Negative (Negative) 08/07/23 18:13 Urine Ketones Trace (Negative) H 08/07/23 18:13 Urine Blood 2+ (Negative) H 08/07/23 18:13 Urine Nitrite Positive (Negative) A 08/07/23 18:13 Urine Bilirubin Negative (Negative) 08/07/23 18:13 Urine Urobilinogen Negative (Negative) 08/07/23 18:13 Ur Leukocyte Esterase 3+ (Negative) H 08/07/23 18:13 Urine WBC (Auto) >50 /hpf (0-5) H 08/07/23 18:13 Urine RBC (Auto) 6-10 /hpf (0-2) H 08/07/23 18:13 U Hyaline Cast (Auto) 3-5 /lpf (0-2) H 08/07/23 18:13 U Epithel Cells (Auto) 0-2 /hpf (0-2) 08/07/23 18:13 Urine Bacteria (Auto) 4+ (None Seen) H 08/07/23 18:13 Granular Casts Present /lpf (None Prsent) A 08/07/23 18:13 Impressions Abdomen/Pelvis CT 08/07/23 18:36 Exam(s): CT ABDOMEN + PELVIS With Contrast IV Amt: 93 ml optiray 320 EXAM: CT Abdomen and Pelvis With Intravenous Contrast CLINICAL HISTORY: Reason for exam: abd pain, diarrhea, c.diff. TECHNIQUE: Axial computed tomography images of the abdomen and pelvis with intravenous contrast. CTDI is 22.15 mGy and DLP is 1124.99 mGy-cm. Automated exposure control was utilized for the study. A dose lowering technique was utilized adhering to the principles of ALARA. CONTRAST: Patient received 93 ml optiray 320 of IV contrast COMPARISON: CT abdomen/pelvis on 07/10/2023 FINDINGS: Lung bases: Unremarkable. No mass. No consolidation. Mediastinum: Small hiatal hernia. ABDOMEN: Liver: Hepatic steatosis hypodensity in the left liver is too small to definitively characters. Gallbladder and bile ducts: Unremarkable. No calcified stones. No ductal dilation. Pancreas: Unremarkable. No mass. No ductal dilation. Spleen: Unremarkable. No splenomegaly. Adrenals: Unremarkable. No mass. Kidneys and ureters: Severe right hydronephrosis. Moderate proximal and mid right hydroureter. Right-sided ureteral stent in place. No obstructing stone identified. Prominence of the urothelium of the right renal collecting system may represent ureteritis. Neoplasm is not excluded. Left renal cyst. Stomach and bowel: Wall thickening and surrounding fat stranding throughout the colon and rectum, concerning for pancolitis and proctitis. Evaluation of the stomach is limited by underdistention. PELVIS: Appendix: No findings to suggest acute appendicitis. Bladder: Bladder wall thickening is nonspecific. Please correlate with urinalysis to evaluate for cystitis. Reproductive: Prior hysterectomy. ABDOMEN and PELVIS: Intraperitoneal space: Small amount of ascites. No significant fluid collection. Bones/joints: Mild curvature of the spine. Degenerative changes of the spine. Bilateral L5 pars defects. Grade 1 anterolisthesis of L5 on S1. Mild retrolisthesis of L2 on L3. No acute fracture. No dislocation. Soft tissues: Small fat-containing umbilical hernia. Vasculature: Atherosclerotic changes of the vasculature. No aortic aneurysm or dissection. Lymph nodes: Unremarkable. No enlarged lymph nodes. IMPRESSION: 1. Wall thickening and surrounding fat stranding throughout the colon and rectum, concerning for pancolitis and proctitis. 2. Severe right hydronephrosis. Moderate proximal and mid right hydroureter. Right-sided ureteral stent in place. No obstructing stone identified. 3. Prominence of the urothelium of the right renal collecting system may represent ureteritis. Neoplasm is not excluded. 4. Bladder wall thickening is nonspecific. Please correlate with urinalysis to evaluate for cystitis. 5. Small amount of ascites. Electronically signed by: Noelle Vital M.D. 08/07/23 19:27 PM PG Care Time/CCT Total # of Minutes Spent Total Time Spent with Patient: Total time spent is greater than 50% in coordination of care (as documented) at patient's floor/unit and/or counseling patient: Coding Level of Care Code 17931 INT INP/OBS CARE 3/75MIN Diagnoses C. difficile colitis A04.72 Diarrhea R19.7
--- NOTE | 2023-08-08 10:34 | Urology Consultation ---
<Statement entered by Andreas Estrella MD - 08/08/23 13:00> I have discussed MS. Ferreira' case with DONNIE Aparicio and agree with the above documentation. She has chronic right-sided hydronephrosis managed with an indwelling ureteral stent. Overall, these appear stable from her prior CT scan. Urothelial thickening is noted on her more recent scan, raising suspicion for ureteritis. Urine culture is preliminary positive and currently she is receiving broad-spectrum antibiotics with ceftriaxone and vancomycin. Her symptoms seem to be predominantly related to her known C. difficile. She has upcoming stent exchange scheduled with her primary urologist. If she does not respond to antibiotics and conservative measures, could consider ureteral stent exchange. -Andreas Estrella MD. Date of Consultation August 08, 2023 Assessment & Plan (1) Hydronephrosis, right: (2) Ureteral stricture, right: (3) UTI (urinary tract infection): (4) Ureteritis: Plan 72-year-old female, urology consulted for ureteritis. Findings: Patient is hemodynamically stable, afebrile Leukocytosis possibly related to C diff/UTI, kidney function appropriate UC preliminary positive infection CT A/P showing signs of chronic right hydronephrosis with appropriate right stent placement. Also showing signs of possible ureteritis, neoplasm can not be ruled out. Patient due for stent exchange outpatient in couple weeks Patient denying any bothersome symptoms including right flank pain Recommendations: Monitor culture and trend antibiotics based off of sensitives and results along with appropriate antibiotics for C. Diff infection Trend labs to monitor for improvement in leukocytosis No surgical intervention is needed at this time, will reevaluate if change in patient's condition Other medical management and care per primary team Patient will need close out patient follow up with her local urologist for routine stent exchange and possible ureter biopsy due to results on CT Urology will follow peripherally Please contact urology if any further concerns or questions History of Present Illness Attending Physician: Juan Lopez MD History of Present Illness 72-year-old female who was admitted for C. difficile infection. Patient has chronic stents exchange every 5 months due to right ureteral stricture and chronic hydronephrosis with a history of uterine cancer status post radiation treatment. She was recently admitted for acute pyelonephritis, cultures grew Corynebacterium, she was treated with Rocephin, IV Vanco and discharged on oral Zosyn for approximately 14 days. She developed abdominal pain, nausea, diarrhea and was seen in the ER August 04. Outpatient stool culture grew back C. difficile, she was discharged on p.o. Vanco. Despite treatment her symptoms continued and she came back due to dehydration, lack of p.o. intake and abdominal pain. Urology was consulted for possible ureteritis on CT scan. Labs revealed leukocytosis, UA likely positive for infection. Patient hemodynamically stable and afebrile. CT scan on 08/17/2023 shows severe right hydronephrosis, moderate proximal and mid right hydroureter. Right ureteral stent is in place without any ureteral stone. Prominence of the urothelium of the right collecting system may represent urethritis. Neoplasm is not excluded. Left renal cyst. Bladder wall is thickened. Wall thickening and surrounding fat stranding seen throughout the colon and rectum concerning for pancolitis and proctitis. Labs reviewed 08/08/2023 Creatinine 0.82 Glucose 128 WBCs 16.68 Hemoglobin 11.7 Hematocrit 34.7% UA on 08/07/2023 2+ protein, negative glucose, trace ketones, 2+ blood, positive nitrates, negative bilirubin, 3+ leukocyte Estrace, greater than 50 WBCs, 6-10 RBCs, 4+ bacteria Urine culture on 08/07/2023 preliminary growing gram-negative bacilli Blood cultures not completed Patient assessed at bedside- she states that she had a positive stool culture for C. difficile, tried to manage treatment outpatient but was unable to keep any intake down and reported back to the ER yesterday. She is admitting to abdominal pain. She did have episode of chills and nausea/vomiting, diarrhea yesterday. She is denying flank pain especially on the right side. She is denying any urinary symptom changes including urgency, frequency, incomplete em ptying, gross hematuria or dysuria. She is expecting to meet with her urologist at [facility] in the next week or 2 for setting up her stent exchange, which she presumes to be in a couple weeks. She does not have a history of recurrent UTIs. She recently finished outpatient treatment with p.o. antibiotics for UTI/pyelonephritis in June. Allergies Allergy/AdvReac Type Severity Reaction Status Date / Time No Known Allergies Allergy Unknown Verified 08/05/23 17:36 Home Medications Medication Instructions Recorded Confirmed Type atorvastatin 40 mg tablet 40 mg PO HS 08/07/23 08/07/23 History sertraline 50 mg tablet 50 mg PO HS 08/07/23 08/07/23 History vancomycin 125 mg capsule 125 mg PO QID 08/07/23 08/07/23 History Patient History Medical History Depression HLD (hyperlipidemia) Uterine cancer Surgical History Hx of tonsillectomy History of hysterectomy Family History Other Family history non-contributory Social History Smoking Status: Never smoker Hx Alcohol Use: No Hx Substance Use: No Preferred Language: Setswana Communication Ability: Effective Specifications Checker Required: No Beliefs That Will Affect Care: None Current Living Situation: Alone Current Living Situation Comment: Owns home, ramp to enter Other Information That Helps Us Care for You: No Feels Safe at Home: Yes Safety Concerns: Feels Safe At This Time Assistive Devices: Glasses Review of Systems Review of Systems: 14 point review of systems negative exce pt for otherwise indicated. Physical Exam Constitutional: well developed and well nourished; no acute distress Eyes: + anicteric sclerae; pupils not irregula r Respiratory: normal respiratory effort; no respiratory distress, does not use accessory muscles and normal respiratory pattern Cardiovascular: well perfused Gastrointestinal (Abdomen): Inspection/Auscultation: abdomen normal to in spection Percussion/Palpation: abdomen soft; abdomen nontender Musculoskeletal: Extremities: extremities normal to inspection Skin: no rashes, warm and dry normal turgor Neurologic: moves all extremities and awake Speech / Cognition: normal speech Psychiatric: Orientation: alert and oriented x 3 Eye Contact: good eye contact Genitourinary: no CVA tenderness Results & Data Vital Signs (Past 12 Hours) Vital Signs Temp Pulse Pulse Resp BP Pulse Ox Pulse Ox 08/08/23 03:53 36.7 C 85 20 91/55 L 94 08/07/23 22:55 76 08/07/23 22:49 37 C 84 19 107/69 97 08/07/23 22:48 37 C 84 19 107/69 97 08/07/23 22:48 97 08/07/23 20:21 78 28 H 96/65 L 94 O2 Del Method O2 Del Method 08/08/23 03:53 Room Air 08/07/23 22:55 08/07/23 22:49 Room Air 08/07/23 22:48 Room Air 08/07/23 22:48 Room Air 08/07/23 20:21 Room Air PG Care Time/CCT Total # of Minutes Spent Total Time Spent with Patient: Total time spent is greater than 50% in coordination of care (as documented) at patient's floor/unit and/or counseling patient: Coding Level of Care Code 12735 INT INP/OBS CARE 2/55MIN Diagnoses Hydronephrosis, right N13.30 Ureteral stricture, right N13.5 Acute pyelonephritis N10 Urinary tract infection type: acute pyelonephritis Ureteritis N28.89 (3) UTI (urinary tract infection) Urinary tract infection type: acute pyelonephritis Qualified Code(s): N10 - Acute pyelonephritis
--- NOTE | 2023-08-08 17:28 | Hospitalist Progress Note ---
Date of Service August 08, 2023 Assessment & Plan (1) Colitis due to Clostridioides difficile: Plan: 72-year-old female with past medical history significant for dyslipidemia, right ureteral stricture and hydronephrosis, history of uterine cancer as per patient 25 to 30 years ago s/p radiation treatment and s/p ureteral stent which is exchanged every 5 months and next exchange In few weeks as per patient, history of depression who was recently in the hospital for acute right perinephritis and cultures grew corynebacterium was seen by ID and urology and she was treated initially with Rocephin and later with IV Vanco and discharged on oral Zyvox to complete 10 to 14 days of antibiotics.Then patient developed abdominal pain, nausea and diarrhea and was in the ER on August 04.Outpatient stool culture came back C. difficile. She was discharged with p.o. vancomycin from the ER.Per epic PCP prescribed Dificid. Patient states she is taking only p.o. vancomycin.Having lot of nausea not able to eat anything. And still having a lot of diarrhea. And diffuse abdominal pain 7 /10 severity.Denies any fevers. Micturating okay. No hematuria. No blood in the stools. No chest pain or shortness of breath. Had some headache but it got resolved. Currently no cough. No blurred vision. No runny nose or sore throat. Hemodynamics are okay. Ambulating okay as per patient. Colitis due to C. difficile CT scan showing pancolitis and proctitis Will continue with p.o. vancomycin to 250 mg every 6 hours. Clear liquid diet. IV fluids. GI consult in a.m. for further recommendations-appreciate input and recommendation Will change p.o. vancomycin 125 mg every [address] scan.:ureteritis. Neoplasm is not excluded. Severe right hydronephrosis. Moderate proximal and mid right hydroureter. Right-sided ureteral stent in place. No obstructing stone identified. On Rocephin. Will follow cultures. Urology consult for further recommendations-appreciate recommendation. Urine culture is growing gram-negative bacilli and further sensitivities pending History of uterine cancer S/p radiation S/p ureteral stent Follows with urology Hyperlipidemia On statin Depression On Zoloft DVT prophylaxis Lovenox Disposition Medical/Tele floor Full code Admission and Anticipated Discharge Date Admission Date: August 07, 2023 Subjective 08/08/2023 The patient was seen and examined in medical telemetry unit She has been having abdominal pain and diarrhea for the last few days Remain generally weak Has had some urinary symptoms as well Review of Systems Review of Systems: All systems reviewed and are unremarkable except as noted below Physical Exam Physical Exam: Lying in bed comfortably Constitutional: + ill appearing and average body habitus Eyes: PERRL, conjunctivae normal, anicteric sclerae ENMT: external ear and nose normal, oropharynx normal Neck: trachea midline, no thyromegaly Respiratory: no respiratory distress Auscultation: lungs clear to auscultation bilaterally Cardiovascular: Rate/Rhythm: regular rate and regular rhythm; not tachycardic Heart Sounds: normal S1 and normal S2; no murmur Extremities: no edema Gastrointestinal (Abdomen): Inspection/Auscultation: normal bowel sounds (Exacerbated); abdomen not distended Percussion/Palpation: + abdomen tender (Mild tenderness without guarding and no rigidity) and abdomen soft Musculoskeletal: No acute arthritis involving any of the joint Neurologic: normal touch/pain/proprioception and moves all extremities; no focal motor deficits Psychiatric: A+Ox3, euthymic affect Lymphatic: no cervical or axillary lymphadenopathy Results & Data Results & Data Vital Signs (Past 12 Hours) Vital Signs Temp Pulse Pulse Resp BP Pulse Ox O2 Del Method 08/08/23 15:49 88 08/08/23 14:45 36.7 C 82 17 100/60 95 Room Air 08/08/23 10:52 89 08/08/23 08:46 36.9 C 81 16 100/63 93 Room Air Laboratory Results Short CBC 08/07/23 08/08/23 Range/Units 17:28 05:44 WBC 20.07 H 16.68 H (4.8-10.8) K/ul Hgb 13.2 11.7 L (12.0-16.0) g/dl Hct 39.4 34.7 L (37.0-47.0) % Plt Count 407 H 368 (130-400) K/uL BMP 08/07/23 08/08/23 17:28 05:44 Sodium 135 L 137 Potassium 3.8 3.8 Chloride 101 104 Carbon Dioxide 24 27 BUN 11 11 Creatinine 0.82 0.82 Glucose 118 H 128 H Calcium 8.2 L 7.3 L Liver Function 08/07/23 Range/Units 17:28 Total Bilirubin 0.4 (0.2-1.0) mg/dl AST 10 L (13-39) U/L ALT 13 (7-52) U/L Alkaline Phosphatase 62 (34-104) U/L Albumin 3.5 (3.4-5.0) gm/dl Urine 08/07/23 Range/Units 18:13 Urine Color Dark Yellow Urine Appearance Turbid A (Clear) Urine pH 6.0 (4.5-7.5) Ur Specific Cut Off 1.013 (1.000-1.030) Urine Protein 2+ H (Negative) Urine Glucose (UA) Negative (Negative) Medications Administered Current Inpatient Medications Acetaminophen (Acetaminophen 325 Mg Tab) 650 mg PO Q4H PRN PRN Reason: Pain or Fever Stop: 09/06/23 22:47 Atorvastatin Calcium (Atorvastatin 40 Mg Tab) 40 mg PO HS OLVIN Stop: 09/07/23 20:59 Davila Syrup (Davila Syrup 5 Ml Udp) 5 ml PO Q6 OLVIN Stop: 08/18/23 00:00 Last Admin: 08/08/23 12:27 Dose: 5 ml Dicyclomine HCl (Dicyclomine Hcl 10 Mg Cap) 10 mg PO TID PRN PRN Reason: abdominal pain Stop: 09/07/23 08:59 Last Admin: 08/08/23 06:25 Dose: 10 mg Enoxaparin Sodium (Enoxaparin Inj 40 Mg/0.4 Ml Syr) 40 mg SQ HS OLVIN Stop: 09/06/23 22:47 Last Admin: 08/07/23 23:26 Dose: 40 mg Ceftriaxone Sodium (Rocephin) 2,000 mg in 50 mls @ 100 mls/hr IV Q24H OLVIN Stop: 08/18/23 19:59 Dextrose/Sodium Chloride (D5w And 1/2nss) 1,000 mls @ 125 mls/hr IV .Q8H OLVIN Stop: 09/06/23 22:47 Last Admin: 08/08/23 15:42 Dose: 125 mls/hr Nitroglycerin (Nitroglycerin Sl 0.4 Mg/Tab Tab) 0.4 mg SL Q5M PRN PRN Reason: Chest Pain Stop: 09/06/23 22:47 Ondansetron HCl (Ondansetron Inj 2 Mg/Ml 2 Ml Vial) 4 mg IV Q6H PRN PRN Reason: Nausea Stop: 09/06/23 22:47 Sertraline HCl (Sertraline Hcl 50 Mg Tablet) 50 mg PO HS OLVIN Stop: 09/07/23 20:59 Vancomycin HCl (Vancomycin Hcl 250 Mg/5 Ml Soln) 250 mg PO Q6 OLVIN Stop: 08/18/23 00:00 Last Admin: 08/08/23 12:27 Dose: 250 mg
[2023-08-08] MEDS: ATORVASTATIN 40 MG TAB PO SCH (20:07)
[2023-08-08] MEDS: SERTRALINE HCL 50 MG TABLET PO SCH (20:07)
[2023-08-08] MEDS: cefTRIAXone SODIUM 2,000 MG/50 ML BAG IV SCH (20:08)
[2023-08-08] MEDS: ONDANSETRON INJ 2 MG/ML 2 ML VIAL IV PRN (22:24)
[2023-08-09 08:00] LABS: Basophils # (auto) 0.05 K/uL (0.00-0.20); Basophils % (auto) 0.3 %; Eosinophils # (auto) 0.18 K/uL (0.00-0.50); Hematocrit (blood only) 35.1 % (37.0-47.0); Hemoglobin 11.7 g/dl (12.0-16.0); Immature Granulocytes # (auto) 0.19 K/uL (0.01-0.20); Immature Granulocytes % (auto) 1.1 %; Lymphocytes # (auto) 1.21 K/uL (1.20-3.40); Lymphocytes % (auto) 7.1 %; Mean Corpuscular Hemoglobin 30.6 pg (25.0-34.0); Mean Corpuscular Hgb Conc 33.3 g/dL (32.0-36.0); Mean Corpuscular Volume 91.9 fL (80.0-100.0); Mean Platelet Volume 9.5 fL (9.4-12.4); Monocytes # (auto) 1.26 K/uL (0.11-0.59); Monocytes % (auto) 7.3 %; Neutrophils # (auto) 14.26 K/uL (1.40-6.50); Neutrophils % (auto) 83.2 %; Platelet Count 404 K/uL (130-400); RDW Coefficient of Variation 13.1 % (11.5-14.5); RDW Standard Deviation 43.3 fL (36.4-46.3); Red Blood Count 3.82 M/uL (4.20-5.40); White Blood Count 17.15 K/ul (4.8-10.8)
[2023-08-09 08:54] LABS: BUN Creatinine Ratio 6.3 (10-20); Calcium 7.6 mg/dl (8.6-10.3); Creatinine Clr Calc Pharmacy 84.7 ml/min; Est GFR (African American) 103.3 ml/min; Est GFR (Non-African American) 89.2 ml/min; Phosphorus 2.6 mg/dl (2.5-4.9); Potassium 3.5 mmol/L (3.5-5.1)
[2023-08-09] MEDS: CEFEPIME 2,000 MG in SYRINGE 0 ML IV SCH (10:45)
--- NOTE | 2023-08-09 10:50 | Gastroenterology Progress Note ---
Date of Service August 09, 2023 Assessment & Plan (1) C. difficile colitis: (2) Diarrhea: Plan Patient is a 72 y.o. female with a history of acute pyelonephritis admitted one month ago, readmitted with C difficile colitis secondary to recent abx use, failing outpatient management. -Given lack of clinical improvement on Vancomycin as monotherapy, recommend starting Flagyl 500 mg IV q 8 hours in addition to Vancomycin. -Recommend infection control measures. -Supportive care per primary team. Admission and Anticipated Discharge Date Admission Date: August 07, 2023 Subjective Patient continues with frequent bowel movements, including nocturnal stooling. Abdominal cramping prior to bms. +nausea but no vomiting. No rectal bleeding. WBC 17.15. Continue Vancomycin. Review of Systems Constitutional: + fatigue; no fever and no chills Gastrointestinal: as per Subjective / HPI Physical Exam Constitutional: WD/WN, vitals as above Respiratory: normal respiratory effort, lungs clear to auscultation Cardiovascular: RRR, no murmur, no edema Gastrointestinal (Abdomen): normal bowel sounds, soft, nontender, no hepatosplenomegaly Psychiatric: A+Ox3, euthymic affect Results & Data Results & Data Vital Signs (Past 12 Hours) Vital Signs Temp Pulse Pulse Resp BP Pulse Ox Pulse Ox 08/09/23 07:52 36.6 C 74 18 113/70 95 08/09/23 04:00 36.7 C 76 16 118/73 93 08/09/23 03:31 85 08/08/23 22:48 36.8 C 82 18 116/67 94 08/08/23 22:48 94 O2 Del Method O2 Del Method 08/09/23 07:52 Room Air 08/09/23 04:00 Room Air 08/09/23 03:31 08/08/23 22:48 Room Air 08/08/23 22:48 Room Air PG Care Time/CCT Total # of Minutes Spent Total Time Spent with Patient: Total time spent is greater than 50% in coordination of care (as documented) at patient's floor/unit and/or counseling patient: Coding Level of Care Code 52427 SUB INP/OBS CARE 3/50MIN Diagnoses C. difficile colitis A04.72 Diarrhea R19.7
[2023-08-09] MEDS: metroNIDAZOLE 500 MG/100 ML BAG IV SCH (11:58)
--- NOTE | 2023-08-09 16:09 | Hospitalist Progress Note ---
Date of Service August 09, 2023 Assessment & Plan (1) Colitis due to Clostridioides difficile: Plan: 72-year-old female with past medical history significant for dyslipidemia, right ureteral stricture and hydronephrosis, history of uterine cancer as per patient 25 to 30 years ago s/p radiation treatment and s/p ureteral stent which is exchanged every 5 months and next exchange In few weeks as per patient, history of depression who was recently in the hospital for acute right perinephritis and cultures grew corynebacterium was seen by ID and urology and she was treated initially with Rocephin and later with IV Vanco and discharged on oral Zyvox to complete 10 to 14 days of antibiotics.Then patient developed abdominal pain, nausea and diarrhea and was in the ER on August 04.Outpatient stool culture came back C. difficile. She was discharged with p.o. vancomycin from the ER.Per epic PCP prescribed Dificid. Patient states she is taking only p.o. vancomycin.Having lot of nausea not able to eat anything. And still having a lot of diarrhea. And diffuse abdominal pain 7 /10 severity.Denies any fevers. Micturating okay. No hematuria. No blood in the stools. No chest pain or shortness of breath. Had some headache but it got resolved. Currently no cough. No blurred vision. No runny nose or sore throat. Hemodynamics are okay. Ambulating okay as per patient. Colitis due to C. difficile CT scan showing pancolitis and proctitis Will continue with p.o. vancomycin to 250 mg every 6 hours. Clear liquid diet. IV fluids. GI consult in a.m. for further recommendations-appreciate input and recommendation Will change p.o. vancomycin 125 mg every 6 hours Has been getting intravenous Flagyl as well Minimally improved-still has diarrhea and abdominal discomfort UTI Per Ct scan.:ureteritis. Neoplasm is not excluded. Severe right hydronephrosis. Moderate proximal and mid right hydroureter. Right-sided ureteral stent in place. No obstructing stone identified. On Rocephin. Will follow cultures. Urology consult for further recommendations-appreciate recommendation. Urine culture grew Klebsiella pneumoniae and Pseudomonas aeruginosa-sensitive to cefepime and also Cipro Intravenous cefepime has been started and ceftriaxone discontinued History of uterine cancer S/p radiation S/p ureteral stent Follows with urology Hyperlipidemia On statin Depression On Zoloft DVT prophylaxis Lovenox Disposition Medical/Tele floor Full code Admission and Anticipated Discharge Date Admission Date: August 07, 2023 Subjective 08/08/2023 The patient was seen and examined in medical telemetry unit She has been having abdominal pain and diarrhea for the last few days Remain generally weak Has had some urinary symptoms as well 08/09/2023 The patient was seen and examined in medical telemetry unit She has been having some abdominal discomfort and diarrhea No nausea no vomiting No urinary symptoms Review of Systems Review of Systems: All systems reviewed and are unremarkable except as noted below Physical Exam Physical Exam: Lying in bed comfortably Constitutional: + ill appearing and average body habitus Eyes: PERRL, conjunctivae normal, anicteric sclerae ENMT: external ear and nose normal, oropharynx normal Neck: trachea midline, no thyromegaly Respiratory: no respiratory distress Auscultation: lungs clear to auscultation bilaterally Cardiovascular: Rate/Rhythm: regular rate and regular rhythm; not tachycardic Heart Sounds: normal S1 and normal S2; no murmur Extremities: no edema Gastrointestinal (Abdomen): Inspection/Auscultation: normal bowel sounds (Exacerbated); abdomen not distended Percussion/Palpation: + abdomen tender (Mild tenderness without guarding and no rigidity) and abdomen soft Neurologic: normal touch/pain/proprioception and moves all extremities; no focal motor deficits Psychiatric: A+Ox3, euthymic affect Lymphatic: no cervical or axillary lymphadenopathy Results & Data Results & Data Vital Signs (Past 12 Hours) Vital Signs Temp Pulse Pulse Pulse Resp BP Pulse Ox 08/09/23 16:04 76 08/09/23 15:44 36.6 C 74 18 130/72 93 08/09/23 11:51 36.7 C 78 18 123/70 95 08/09/23 07:52 36.6 C 74 18 113/70 95 08/09/23 07:30 74 O2 Del Method 08/09/23 16:04 08/09/23 15:44 Room Air 08/09/23 11:51 Room Air 08/09/23 07:52 Room Air 08/09/23 07:30 Laboratory Results Short CBC 08/09/23 Range/Units 07:20 WBC 17.15 H (4.8-10.8) K/ul Hgb 11.7 L (12.0-16.0) g/dl Hct 35.1 L (37.0-47.0) % Plt Count 404 H (130-400) K/uL BMP 08/09/23 07:20 Sodium 139 Potassium 3.5 Chloride 107 Carbon Dioxide 25 BUN 4 L Creatinine 0.64 Glucose 133 H Calcium 7.6 L Medications Administered Current Inpatient Medications Acetaminophen (Acetaminophen 325 Mg Tab) 650 mg PO Q4H PRN PRN Reason: Pain or Fever Stop: 09/06/23 22:47 Atorvastatin Calcium (Atorvastatin 40 Mg Tab) 40 mg PO HS OLVIN Stop: 09/07/23 20:59 Last Admin: 08/08/23 20:07 Dose: 40 mg Davila Syrup (Davila Syrup 5 Ml Udp) 5 ml PO Q6 OLVIN Stop: 08/18/23 00:00 Last Admin: 08/09/23 12:26 Dose: 5 ml Dicyclomine HCl (Dicyclomine Hcl 10 Mg Cap) 10 mg PO TID PRN PRN Reason: abdominal pain Stop: 09/07/23 08:59 Last Admin: 08/09/23 08:12 Dose: 10 mg Enoxaparin Sodium (Enoxaparin Inj 40 Mg/0.4 Ml Syr) 40 mg SQ HS OLVIN Stop: 09/06/23 22:47 Last Admin: 08/08/23 20:08 Dose: 40 mg Dextrose/Sodium Chloride (D5w And 1/2nss) 1,000 mls @ 125 mls/hr IV .Q8H OLVIN Stop: 09/06/23 22:47 Last Admin: 08/09/23 15:29 Dose: 125 mls/hr Cefepime HCl 2,000 mg/ Syringe 20 mls @ 5 mls/min IV Q8H OLVIN Stop: 08/19/23 08:59 Last Admin: 08/09/23 10:45 Dose: 5 mls/min Metronidazole (Flagyl) 500 mg in 100 mls @ 100 mls/hr IV Q8H [facility]; Protocol Stop: 08/19/23 10:44 Last Infusion: 08/09/23 13:28 Dose: Infused Nitroglycerin (Nitroglycerin Sl 0.4 Mg/Tab Tab) 0.4 mg SL Q5M PRN PRN Reason: Chest Pain Stop: 09/06/23 22:47 Ondansetron HCl (Ondansetron Inj 2 Mg/Ml 2 Ml Vial) 4 mg IV Q6H PRN PRN Reason: Nausea Stop: 09/06/23 22:47 Last Admin: 08/08/23 22:24 Dose: 4 mg Sertraline HCl (Sertraline Hcl 50 Mg Tablet) 50 mg PO HS [facility] Stop: 09/07/23 20:59 Last Admin: 08/08/23 20:07 Dose: 50 mg Vancomycin HCl (Vancomycin Hcl 250 Mg/5 Ml Soln) 250 mg PO Q6 OLVIN Stop: 08/18/23 00:00 Last Admin: 08/09/23 12:26 Dose: 250 mg
[2023-08-10 06:55] LABS: Basophils # (auto) 0.04 K/uL (0.00-0.20); Basophils % (auto) 0.3 %; Eosinophils # (auto) 0.23 K/uL (0.00-0.50); Eosinophils % (auto) 1.6 %; Hematocrit (blood only) 35.9 % (37.0-47.0); Hemoglobin 11.8 g/dl (12.0-16.0); Immature Granulocytes # (auto) 0.22 K/uL (0.01-0.20); Immature Granulocytes % (auto) 1.5 %; Lymphocytes # (auto) 1.27 K/uL (1.20-3.40); Lymphocytes % (auto) 8.6 %; Mean Corpuscular Hemoglobin 30.3 pg (25.0-34.0); Mean Corpuscular Hgb Conc 32.9 g/dL (32.0-36.0); Mean Corpuscular Volume 92.3 fL (80.0-100.0); Mean Platelet Volume 9.4 fL (9.4-12.4); Monocytes # (auto) 1.02 K/uL (0.11-0.59); Monocytes % (auto) 6.9 %; Neutrophils # (auto) 12.04 K/uL (1.40-6.50); Neutrophils % (auto) 81.1 %; Platelet Count 390 K/uL (130-400); RDW Coefficient of Variation 13.2 % (11.5-14.5); RDW Standard Deviation 44.5 fL (36.4-46.3); Red Blood Count 3.89 M/uL (4.20-5.40); White Blood Count 14.82 K/ul (4.8-10.8)
[2023-08-10 07:12] LABS: BUN Creatinine Ratio 5.1 (10-20); Calcium 7.6 mg/dl (8.6-10.3); Creatinine Clr Calc Pharmacy 92.8 ml/min; Est GFR (African American) 106.1 ml/min; Est GFR (Non-African American) 91.6 ml/min; Magnesium 1.9 mg/dl (1.7-2.4); Potassium 3.1 mmol/L (3.5-5.1)
[2023-08-10] MEDS: POTASSIUM CHLORIDE CRTAB 20 MEQ TABCR PO STA (08:30)
[2023-08-10] MEDS: POTASSIUM CHLORIDE / WTR 10 MEQ/100 ML PLCT IV SCH (08:35)
--- NOTE | 2023-08-10 14:50 | Hospitalist Progress Note ---
Date of Service August 10, 2023 Assessment & Plan (1) Colitis due to Clostridioides difficile: Plan: 72-year-old female with past medical history significant for dyslipidemia, right ureteral stricture and hydronephrosis, history of uterine cancer as per patient 25 to 30 years ago s/p radiation treatment and s/p ureteral stent which is exchanged every 5 months and next exchange In few weeks as per patient, history of depression who was recently in the hospital for acute right perinephritis and cultures grew corynebacterium was seen by ID and urology and she was treated initially with Rocephin and later with IV Vanco and discharged on oral Zyvox to complete 10 to 14 days of antibiotics.Then patient developed abdominal pain, nausea and diarrhea and was in the ER on August 04.Outpatient stool culture came back C. difficile. She was discharged with p.o. vancomycin from the ER.Per epic PCP prescribed Dificid. Patient states she is taking only p.o. vancomycin.Having lot of nausea not able to eat anything. And still having a lot of diarrhea. And diffuse abdominal pain 7 /10 severity.Denies any fevers. Micturating okay. No hematuria. No blood in the stools. No chest pain or shortness of breath. Had some headache but it got resolved. Currently no cough. No blurred vision. No runny nose or sore throat. Hemodynamics are okay. Ambulating okay as per patient. Colitis due to C. difficile CT scan showing pancolitis and proctitis Will continue with p.o. vancomycin to 250 mg every 6 hours. Clear liquid diet. IV fluids. GI consult in a.m. for further recommendations-appreciate input and recommendation Will change p.o. vancomycin 125 mg every 6 hours Has been getting intravenous Flagyl as well Clinically much better today with decrease in diarrhea and abdominal symptoms Advised to ambulate more UTI Per Ct scan.:ureteritis. Neoplasm is not excluded. Severe right hydronephrosis. Moderate proximal and mid right hydroureter. Right-sided ureteral stent in place. No obstructing stone identified. On Rocephin. Will follow cultures. Urology consult for further recommendations-appreciate recommendation. Urine culture grew Klebsiella pneumoniae and Pseudomonas aeruginosa-sensitive to cefepime and also Cipro Intravenous cefepime has been started and ceftriaxone discontinued Still has minimal UTI symptoms but no fever and no chills History of uterine cancer S/p radiation S/p ureteral stent Follows with urology Hyperlipidemia On statin Depression On Zoloft DVT prophylaxis Lovenox Disposition Medical/Tele floor Full code Admission and Anticipated Discharge Date Admission Date: August 07, 2023 Subjective 08/08/2023 The patient was seen and examined in medical telemetry unit She has been having abdominal pain and diarrhea for the last few days Remain generally weak Has had some urinary symptoms as well 08/09/2023 The patient was seen and examined in medical telemetry unit She has been having some abdominal discomfort and diarrhea No nausea no vomiting No urinary symptoms 08/10/2023 The patient was seen and examined in medical telemetry unit She has been feeling a little better today Diarrhea has been decreased No abdominal distention but he still has minimal discomfort Review of Systems Review of Systems: All systems reviewed and are unremarkable except as noted below Physical Exam Physical Exam: Lying in bed comfortably Constitutional: + ill appearing and average body habitus Eyes: PERRL, conjunctivae normal, anicteric sclerae ENMT: external ear and nose normal, oropharynx normal Neck: trachea midline, no thyromegaly Respiratory: no respiratory distress Auscultation: lungs clear to auscultation bilaterally Cardiovascular: Rate/Rhythm: regular rate and regular rhythm; not tachycardic Heart Sounds: normal S1 and normal S2; no murmur Extremities: no edema Gastrointestinal (Abdomen): Inspection/Auscultation: normal bowel sounds (Exacerbated); abdomen not distended Percussion/Palpation: + abdomen tender (Mild tenderness lower quadrants) and abdomen soft; no guarding and abdomen not rigid Neurologic: normal touch/pain/proprioception and moves all extremities; no focal motor deficits Psychiatric: A+Ox3, euthymic affect Lymphatic: no cervical or axillary lymphadenopathy Results & Data Results & Data Vital Signs (Past 12 Hours) Vital Signs Temp Pulse Pulse Resp BP Pulse Ox O2 Del Method 08/10/23 11:43 147 H 08/10/23 11:37 36.5 C 67 18 134/76 96 Room Air 08/10/23 08:24 36.4 C L 67 18 138/77 95 Room Air 08/10/23 05:48 74 08/10/23 04:02 36.5 C 75 16 134/87 94 Room Air Laboratory Results Short CBC 08/10/23 Range/Units 06:09 WBC 14.82 H (4.8-10.8) K/ul Hgb 11.8 L (12.0-16.0) g/dl Hct 35.9 L (37.0-47.0) % Plt Count 390 (130-400) K/uL [facility] 08/10/23 06:09 Sodium 140 Potassium 3.1 L Chloride 109 H Carbon Dioxide 24 BUN 3 L Creatinine 0.59 L Glucose 116 H Calcium 7.6 L Medications Administered Current Inpatient Medications Acetaminophen (Acetaminophen 325 Mg Tab) 650 mg PO Q4H PRN PRN Reason: Pain or Fever Stop: 09/06/23 22:47 Atorvastatin Calcium (Atorvastatin 40 Mg Tab) 40 mg PO HS [facility] Stop: 09/07/23 20:59 Last Admin: 08/09/23 21:01 Dose: 40 mg Davila Syrup (Davila Syrup 5 Ml Udp) 5 ml PO Q6 [facility] Stop: 08/18/23 00:00 Last Admin: 08/10/23 11:10 Dose: 5 ml Dicyclomine HCl (Dicyclomine Hcl 10 Mg Cap) 10 mg PO TID PRN PRN Reason: abdominal pain Stop: 09/07/23 08:59 Last Admin: 08/09/23 08:12 Dose: 10 mg Enoxaparin Sodium (Enoxaparin Inj 40 Mg/0.4 Ml Syr) 40 mg SQ HS [facility] Stop: 09/06/23 22:47 Last Admin: 08/09/23 21:01 Dose: 40 mg Dextrose/Sodium Chloride (D5w And 1/2nss) 1,000 mls @ 125 mls/hr IV .Q8H [facility] Stop: 09/06/23 22:47 Last Admin: 08/10/23 08:35 Dose: 125 mls/hr Cefepime HCl 2,000 mg/ Syringe 20 mls @ 5 mls/min IV Q8H [facility] Stop: 08/19/23 08:59 Last Admin: 08/10/23 08:30 Dose: 5 mls/min Metronidazole (Flagyl) 500 mg in 100 mls @ 100 mls/hr IV Q8H [facility]; Protocol Stop: 08/19/23 10:44 Last Infusion: 08/10/23 12:09 Dose: Infused Nitroglycerin (Nitroglycerin Sl 0.4 Mg/Tab Tab) 0.4 mg SL Q5M PRN PRN Reason: Chest Pain Stop: 09/06/23 22:47 Ondansetron HCl (Ondansetron Inj 2 Mg/Ml 2 Ml Vial) 4 mg IV Q6H PRN PRN Reason: Nausea Stop: 09/06/23 22:47 Last Admin: 08/10/23 06:04 Dose: 4 mg Sertraline HCl (Sertraline Hcl 50 Mg Tablet) 50 mg PO HS [facility] Stop: 09/07/23 20:59 Last Admin: 08/09/23 21:01 Dose: 50 mg Vancomycin HCl (Vancomycin Hcl 250 Mg/5 Ml Soln) 250 mg PO Q6 [facility] Stop: 08/18/23 00:00 Last Admin: 08/10/23 11:10 Dose: 250 mg
[2023-08-11 07:19] LABS: BUN Creatinine Ratio 4.9 (10-20); Calcium 7.5 mg/dl (8.6-10.3); Creatinine Clr Calc Pharmacy 89.5 ml/min; Est GFR (Non-African American) 90.6 ml/min; Potassium 3.3 mmol/L (3.5-5.1)
[2023-08-11] MEDS: POTASSIUM CHLORIDE 20 MEQ/15 ML UDC PO STA (09:26)
[2023-08-11] MEDS: POTASSIUM CHLORIDE / WTR 10 MEQ/100 ML PLCT IV SCH (09:27)
--- NOTE | 2023-08-11 15:02 | Hospitalist Progress Note ---
Date of Service August 11, 2023 Assessment & Plan (1) Colitis due to Clostridioides difficile: Plan: 72-year-old female with past medical history significant for dyslipidemia, right ureteral stricture and hydronephrosis, history of uterine cancer as per patient 25 to 30 years ago s/p radiation treatment and s/p ureteral stent which is exchanged every 5 months and next exchange In few weeks as per patient, history of depression who was recently in the hospital for acute right perinephritis and cultures grew corynebacterium was seen by ID and urology and she was treated initially with Rocephin and later with IV Vanco and discharged on oral Zyvox to complete 10 to 14 days of antibiotics.Then patient developed abdominal pain, nausea and diarrhea and was in the ER on August 04.Outpatient stool culture came back C. difficile. She was discharged with p.o. vancomycin from the ER.Per epic PCP prescribed Dificid. Patient states she is taking only p.o. vancomycin.Having lot of nausea not able to eat anything. And still having a lot of diarrhea. And diffuse abdominal pain 7 /10 severity.Denies any fevers. Micturating okay. No hematuria. No blood in the stools. No chest pain or shortness of breath. Had some headache but it got resolved. Currently no cough. No blurred vision. No runny nose or sore throat. Hemodynamics are okay. Ambulating okay as per patient. Colitis due to C. difficile CT scan showing pancolitis and proctitis Will continue with p.o. vancomycin to 250 mg every 6 hours. Clear liquid diet. IV fluids. GI consult in a.m. for further recommendations-appreciate input and recommendation Will change p.o. vancomycin 125 mg every 6 hours Has been getting intravenous Flagyl as well Clinically much better today with decrease in diarrhea and abdominal symptoms Advised to ambulate more Has been getting better gradually still having diarrhea but the numbers are less UTI Per Ct scan.:ureteritis. Neoplasm is not excluded. Severe right hydronephrosis. Moderate proximal and mid right hydroureter. Right-sided ureteral stent in place. No obstructing stone identified. On Rocephin. Will follow cultures. Urology consult for further recommendations-appreciate recommendation. Urine culture grew Klebsiella pneumoniae and Pseudomonas aeruginosa-sensitive to cefepime and also Cipro Intravenous cefepime has been started and ceftriaxone discontinued Still has minimal UTI symptoms but no fever and no chills will continue current antibiotic History of uterine cancer S/p radiation S/p ureteral stent Follows with urology Hyperlipidemia On statin Depression On Zoloft DVT prophylaxis Lovenox Disposition Medical/Tele floor Full code Admission and Anticipated Discharge Date Admission Date: August 07, 2023 Subjective 08/08/2023 The patient was seen and examined in medical telemetry unit She has been having abdominal pain and diarrhea for the last few days Remain generally weak Has had some urinary symptoms as well 08/09/2023 The patient was seen and examined in medical telemetry unit She has been having some abdominal discomfort and diarrhea No nausea no vomiting No urinary symptoms 08/10/2023 The patient was seen and examined in medical telemetry unit She has been feeling a little better today Diarrhea has been decreased No abdominal distention but he still has minimal discomfort 08/11/2023 The patient was seen and examined in medical telemetry unit She has been feeling a little better with decreasing diarrhea and abdominal discomfort denies any fever and or chills denies any urinary symptoms Review of Systems Review of Systems: all systems reviewed and are unremarkable except as noted below Physical Exam Physical Exam: Lying in bed comfortably Constitutional: + ill appearing and average body habitus Eyes: PERRL, conjunctivae normal, anicteric sclerae ENMT: external ear and nose normal, oropharynx normal Neck: trachea midline, no thyromegaly Respiratory: no respiratory distress Auscultation: lungs clear to auscultation bilaterally Cardiovascular: Rate/Rhythm: regular rate and regular rhythm; not tachycardic Heart Sounds: normal S1 and normal S2; no murmur Extremities: no edema Gastrointestinal (Abdomen): Inspection/Auscultation: normal bowel sounds (Exacerbated); abdomen not distended Percussion/Palpation: + abdomen tender (Mild tenderness lower quadrants) and abdomen soft; no guarding and abdomen not rigid Neurologic: normal touch/pain/proprioception and moves all extremities; no focal motor deficits Psychiatric: A+Ox3, euthymic affect Lymphatic: no cervical or axillary lymphadenopathy Results & Data Results & Data Vital Signs (Past 12 Hours) Vital Signs Temp Pulse Pulse Resp BP BP Pulse Ox 08/11/23 11:18 36.8 C 71 18 128/79 94 08/11/23 07:30 36.8 C 72 18 117/70 96 08/11/23 07:24 67 08/11/23 04:17 36.5 C 70 16 139/66 96 O2 Del Method 08/11/23 11:18 Room Air 08/11/23 07:30 Room Air 08/11/23 07:24 08/11/23 04:17 Room Air Laboratory Results [facility] 08/11/23 06:36 Sodium 138 Potassium 3.3 L Chloride 109 H Carbon Dioxide 24 BUN 3 L Creatinine 0.61 Glucose 121 H Calcium 7.5 L Medications Administered Current Inpatient Medications Acetaminophen (Acetaminophen 325 Mg Tab) 650 mg PO Q4H PRN PRN Reason: Pain or Fever Stop: 09/06/23 22:47 Atorvastatin Calcium (Atorvastatin 40 Mg Tab) 40 mg PO HS [facility]LV[facility] Stop: 09/07/23 20:59 Last Admin: 08/10/23 20:23 Dose: 40 mg Davila Syrup (Davila Syrup 5 Ml Udp) 5 ml PO Q6 [facility] Stop: 08/18/23 00:00 Last Admin: 08/11/23 11:36 Dose: 5 ml Dicyclomine HCl (Dicyclomine Hcl 10 Mg Cap) 10 mg PO TID PRN PRN Reason: abdominal pain Stop: 09/07/23 08:59 Last Admin: 08/09/23 08:12 Dose: 10 mg Enoxaparin Sodium (Enoxaparin Inj 40 Mg/0.4 Ml Syr) 40 mg SQ HS [facility] Stop: 09/06/23 22:47 Last Admin: 08/10/23 20:23 Dose: 40 mg Dextrose/Sodium Chloride (D5w And 1/2nss) 1,000 mls @ 125 mls/hr IV .Q8H [facility] Stop: 09/06/23 22:47 Last Admin: 08/11/23 09:11 Dose: 125 mls/hr Cefepime HCl 2,000 mg/ Syringe 20 mls @ 5 mls/min IV Q8H [facility] Stop: 08/19/23 08:59 Last Admin: 08/11/23 09:27 Dose: 5 mls/min Metronidazole (Flagyl) 500 mg in 100 mls @ 100 mls/hr IV Q8H [facility]; Protocol Stop: 08/19/23 10:44 Last Infusion: 08/11/23 13:00 Dose: Infused Nitroglycerin (Nitroglycerin Sl 0.4 Mg/Tab Tab) 0.4 mg SL Q5M PRN PRN Reason: Chest Pain Stop: 09/06/23 22:47 Ondansetron HCl (Ondansetron Inj 2 Mg/Ml 2 Ml Vial) 4 mg IV Q6H PRN PRN Reason: Nausea Stop: 09/06/23 22:47 Last Admin: 08/10/23 18:34 Dose: 4 mg Sertraline HCl (Sertraline Hcl 50 Mg Tablet) 50 mg PO HS [facility] Stop: 09/07/23 20:59 Last Admin: 08/10/23 20:23 Dose: 50 mg Vancomycin HCl (Vancomycin Hcl 250 Mg/5 Ml Soln) 250 mg PO Q6 [facility] Stop: 08/18/23 00:00 Last Admin: 08/11/23 11:36 Dose: 250 mg
[2023-08-12 08:09] LABS: BUN Creatinine Ratio 4.8 (10-20); Calcium 7.5 mg/dl (8.6-10.3); Creatinine Clr Calc Pharmacy 87.9 ml/min; Est GFR (African American) 103.9 ml/min; Est GFR (Non-African American) 89.6 ml/min; Potassium 3.1 mmol/L (3.5-5.1)
[2023-08-12] MEDS: POTASSIUM CHLORIDE CRTAB 20 MEQ TABCR PO STA (09:58)
[2023-08-12] MEDS: POTASSIUM CHLORIDE / WTR 10 MEQ/100 ML PLCT IV SCH (10:47)
[2023-08-12] MEDS: LOPERAMIDE HCL 2 MG CAP PO PRN (11:22)
--- NOTE | 2023-08-12 15:52 | Hospitalist Progress Note ---
Date of Service August 12, 2023 Assessment & Plan (1) Colitis due to Clostridioides difficile: Plan: 72-year-old female with past medical history significant for dyslipidemia, right ureteral stricture and hydronephrosis, history of uterine cancer as per patient 25 to 30 years ago s/p radiation treatment and s/p ureteral stent which is exchanged every 5 months and next exchange In few weeks as per patient, history of depression who was recently in the hospital for acute right perinephritis and cultures grew corynebacterium was seen by ID and urology and she was treated initially with Rocephin and later with IV Vanco and discharged on oral Zyvox to complete 10 to 14 days of antibiotics.Then patient developed abdominal pain, nausea and diarrhea and was in the ER on August 04.Outpatient stool culture came back C. difficile. She was discharged with p.o. vancomycin from the ER.Per epic PCP prescribed Dificid. Patient states she is taking only p.o. vancomycin.Having lot of nausea not able to eat anything. And still having a lot of diarrhea. And diffuse abdominal pain 7 /10 severity.Denies any fevers. Micturating okay. No hematuria. No blood in the stools. No chest pain or shortness of breath. Had some headache but it got resolved. Currently no cough. No blurred vision. No runny nose or sore throat. Hemodynamics are okay. Ambulating okay as per patient. Colitis due to C. difficile CT scan showing pancolitis and proctitis Will continue with p.o. vancomycin to 250 mg every 6 hours. Clear liquid diet. IV fluids. GI consult in a.m. for further recommendations-appreciate input and recommendation Will change p.o. vancomycin 125 mg every 6 hours Has been getting intravenous Flagyl as well Clinically much better today with decrease in diarrhea and abdominal symptoms Advised to ambulate more----will get PT and OT evaluation Has been getting better gradually still having diarrhea but the numbers are less Will start Imodium as needed to control diarrhea Electrolytes have been supplemented and will monitor Diet is advanced as tolerated UTI Per Ct scan.:ureteritis. Neoplasm is not excluded. Severe right hydronephrosis. Moderate proximal and mid right hydroureter. Right-sided ureteral stent in place. No obstructing stone identified. On Rocephin. Will follow cultures. Urology consult for further recommendations-appreciate recommendation. Urine culture grew Klebsiella pneumoniae and Pseudomonas aeruginosa-sensitive to cefepime and also Cipro Intravenous cefepime has been started and ceftriaxone discontinued Still has minimal UTI symptoms but no fever and no chills will continue current antibiotic Denies any urinary symptoms History of uterine cancer S/p radiation S/p ureteral stent Follows with urology Hyperlipidemia On statin Depression On Zoloft DVT prophylaxis Lovenox Disposition Medical/Tele floor Full code Admission and Anticipated Discharge Date Admission Date: August 07, 2023 Subjective 08/08/2023 The patient was seen and examined in medical telemetry unit She has been having abdominal pain and diarrhea for the last few days Remain generally weak Has had some urinary symptoms as well 08/09/2023 The patient was seen and examined in medical telemetry unit She has been having some abdominal discomfort and diarrhea No nausea no vomiting No urinary symptoms 08/10/2023 The patient was seen and examined in medical telemetry unit She has been feeling a little better today Diarrhea has been decreased No abdominal distention but he still has minimal discomfort 08/11/2023 The patient was seen and examined in medical telemetry unit She has been feeling a little better with decreasing diarrhea and abdominal discomfort denies any fever and or chills denies any urinary symptoms 08/12/2023 The patient was seen and examined in medical telemetry unit Her diarrhea seems to be decreased Abdominal pain and discomfort are gone She has been ambulating but remains weak Review of Systems Review of Systems: all systems reviewed and are unremarkable except as noted below Physical Exam Physical Exam: Lying in bed comfortably Constitutional: + ill appearing and average body habitus Eyes: PERRL, conjunctivae normal, anicteric sclerae ENMT: external ear and nose normal, oropharynx normal Neck: trachea midline, no thyromegaly Respiratory: no respiratory distress Auscultation: lungs clear to auscultation bilaterally Cardiovascular: Rate/Rhythm: regular rate and regular rhythm; not tachycardic Heart Sounds: normal S1 and normal S2; no murmur Extremities: no edema Gastrointestinal (Abdomen): Inspection/Auscultation: normal bowel sounds (Exacerbated); abdomen not distended Percussion/Palpation: + abdomen tender (Mild tenderness lower quadrants) and abdomen soft; no guarding and abdomen not rigid Neurologic: normal touch/pain/proprioception and moves all extremities; no focal motor deficits Psychiatric: A+Ox3, euthymic affect Lymphatic: no cervical or axillary lymphadenopathy Results & Data Results & Data Vital Signs (Past 12 Hours) Vital Signs Temp Pulse Pulse Resp BP Pulse Ox O2 Del Method 08/12/23 14:00 80 08/12/23 11:10 36.6 C 74 16 162/73 H 95 Room Air 08/12/23 07:54 36.4 C L 69 18 113/67 95 Room Air 08/12/23 05:57 67 Laboratory Results [facility] 08/12/23 06:38 Sodium 140 Potassium 3.1 L Chloride 109 H Carbon Dioxide 25 BUN 3 L Creatinine 0.63 Glucose 133 H Calcium 7.5 L Medications Administered Current Inpatient Medications Acetaminophen (Acetaminophen 325 Mg Tab) 650 mg PO Q4H PRN PRN Reason: Pain or Fever Stop: 09/06/23 22:47 Atorvastatin Calcium (Atorvastatin 40 Mg Tab) 40 mg PO HS OLVIN Stop: 09/07/23 20:59 Last Admin: 08/11/23 20:31 Dose: 40 mg Davila Syrup (Davila Syrup 5 Ml Udp) 5 ml PO Q6 [facility] Stop: 08/18/23 00:00 Last Admin: 08/12/23 11:22 Dose: 5 ml Dicyclomine HCl (Dicyclomine Hcl 10 Mg Cap) 10 mg PO TID PRN PRN Reason: abdominal pain Stop: 09/07/23 08:59 Last Admin: 08/09/23 08:12 Dose: 10 mg Enoxaparin Sodium (Enoxaparin Inj 40 Mg/0.4 Ml Syr) 40 mg SQ HS [facility] Stop: 09/06/23 22:47 Last Admin: 08/11/23 20:31 Dose: 40 mg Dextrose/Sodium Chloride (D5w And 1/2nss) 1,000 mls @ 75 mls/hr IV .[id number] [facility] Stop: 09/06/23 22:47 Last Admin: 08/12/23 11:54 Dose: 75 mls/hr Cefepime HCl 2,000 mg/ Syringe 20 mls @ 5 mls/min IV Q8H [facility] Stop: 08/19/23 08:59 Last Admin: 08/12/23 08:28 Dose: 5 mls/min Metronidazole (Flagyl) 500 mg in 100 mls @ 100 mls/hr IV Q8H [facility]; Protocol Stop: 08/19/23 10:44 Last Infusion: 08/12/23 11:46 Dose: Infused Loperamide HCl (Loperamide Hcl 2 Mg Cap) 2 mg PO Q3H PRN PRN Reason: Diarrhea Stop: 09/11/23 10:58 Last Admin: 08/12/23 11:22 Dose: 2 mg Nitroglycerin (Nitroglycerin Sl 0.4 Mg/Tab Tab) 0.4 mg SL Q5M PRN PRN Reason: Chest Pain Stop: 09/06/23 22:47 Ondansetron HCl (Ondansetron Inj 2 Mg/Ml 2 Ml Vial) 4 mg IV Q6H PRN PRN Reason: Nausea Stop: 09/06/23 22:47 Last Admin: 08/12/23 15:42 Dose: 4 mg Sertraline HCl (Sertraline Hcl 50 Mg Tablet) 50 mg PO HS [facility] Stop: 09/07/23 20:59 Last Admin: 08/11/23 20:31 Dose: 50 mg Vancomycin HCl (Vancomycin Hcl 250 Mg/5 Ml Soln) 250 mg PO Q6 [facility] Stop: 08/18/23 00:00 Last Admin: 08/12/23 11:22 Dose: 250 mg
[2023-08-13 09:42] LABS: Calcium 7.5 mg/dl (8.6-10.3); Magnesium 1.6 mg/dl (1.7-2.4); Potassium 3.1 mmol/L (3.5-5.1)
[2023-08-13 09:48] LABS: BUN Creatinine Ratio 8.1 (10-20); Est GFR (African American) 104.4 ml/min; Est GFR (Non-African American) 90.1 ml/min; Phosphorus 2.5 mg/dl (2.5-4.9)
--- NOTE | 2023-08-13 18:34 | Hospitalist Progress Note ---
Date of Service August 13, 2023 Assessment & Plan (1) Colitis due to Clostridioides difficile: Plan: 72-year-old female with past medical history significant for dyslipidemia, right ureteral stricture and hydronephrosis, history of uterine cancer as per patient 25 to 30 years ago s/p radiation treatment and s/p ureteral stent which is exchanged every 5 months and next exchange In few weeks as per patient, history of depression who was recently in the hospital for acute right perinephritis and cultures grew corynebacterium was seen by ID and urology and she was treated initially with Rocephin and later with IV Vanco and discharged on oral Zyvox to complete 10 to 14 days of antibiotics.Then patient developed abdominal pain, nausea and diarrhea and was in the ER on August 04.Outpatient stool culture came back C. difficile. She was discharged with p.o. vancomycin from the ER.Per epic PCP prescribed Dificid. Patient states she is taking only p.o. vancomycin.Having lot of nausea not able to eat anything. And still having a lot of diarrhea. And diffuse abdominal pain 7 /10 severity.Denies any fevers. Micturating okay. No hematuria. No blood in the stools. No chest pain or shortness of breath. Had some headache but it got resolved. Currently no cough. No blurred vision. No runny nose or sore throat. Hemodynamics are okay. Ambulating okay as per patient. Colitis due to C. difficile CT scan showing pancolitis and proctitis Will continue with p.o. vancomycin to 250 mg every 6 hours. Clear liquid diet. IV fluids. GI consult in a.m. for further recommendations-appreciate input and recommendation Will change p.o. vancomycin 125 mg every 6 hours Has been getting intravenous Flagyl as well Clinically much better today with decrease in diarrhea and abdominal symptoms Advised to ambulate more----will get PT and OT evaluation Has been getting better gradually still having diarrhea but the numbers are less Will start Imodium as needed to control diarrhea Electrolytes have been supplemented and will monitor Diarrhea has been persisting and she was advised to take more Imodium to control it as abdominal distention and pain has subsided Will advise advance diet and more ambulation UTI Per Ct scan.:ureteritis. Neoplasm is not excluded. Severe right hydronephrosis. Moderate proximal and mid right hydroureter. Right-sided ureteral stent in place. No obstructing stone identified. On Rocephin. Will follow cultures. Urology consult for further recommendations-appreciate recommendation. Urine culture grew Klebsiella pneumoniae and Pseudomonas aeruginosa-sensitive to cefepime and also Cipro Intravenous cefepime has been started and ceftriaxone discontinued Still has minimal UTI symptoms but no fever and no chills Will continue current antibiotic Denies any urinary symptoms History of uterine cancer S/p radiation S/p ureteral stent Follows with urology-appreciate input and recommendation Hyperlipidemia On statin Depression On Zoloft DVT prophylaxis Lovenox Disposition Medical/Tele floor Full code Admission and Anticipated Discharge Date Admission Date: August 07, 2023 Subjective 08/08/2023 The patient was seen and examined in medical telemetry unit She has been having abdominal pain and diarrhea for the last few days Remain generally weak Has had some urinary symptoms as well 08/09/2023 The patient was seen and examined in medical telemetry unit She has been having some abdominal discomfort and diarrhea No nausea no vomiting No urinary symptoms 08/10/2023 The patient was seen and examined in medical telemetry unit She has been feeling a little better today Diarrhea has been decreased No abdominal distention but he still has minimal discomfort 08/11/2023 The patient was seen and examined in medical telemetry unit She has been feeling a little better with decreasing diarrhea and abdominal discomfort denies any fever and or chills denies any urinary symptoms 08/12/2023 The patient was seen and examined in medical telemetry unit Her diarrhea seems to be decreased Abdominal pain and discomfort are gone She has been ambulating but remains weak 08/13/2023 The patient was seen and examined in medical telemetry unit She has been feeling a little better Diarrhea has been persisting Abdominal pain is less Advance diet as tolerated Review of Systems Review of Systems: all systems reviewed and are unremarkable except as noted below Physical Exam Physical Exam: Lying in bed comfortably Constitutional: + ill appearing and average body habitus Eyes: PERRL, conjunctivae normal, anicteric sclerae ENMT: external ear and nose normal, oropharynx normal Neck: trachea midline, no thyromegaly Respiratory: no respiratory distress Auscultation: lungs clear to ausculta tion bilaterally Cardiovascular: Rate/Rhythm: regular rate and regular rhythm; not tachycardic Heart Sounds: normal S1 and normal S2; no murmur Extremities: no edema Gastrointestinal (Abdomen): Inspection/Auscultation: normal bowel sounds (Exacerbated); abdomen not distended Percussion/Palpation: abdomen soft; abdomen nontender (Mild tenderness lower quadrants), no guarding and abdomen not rigid Musculoskeletal: No acute arthritis involving any of the joints Neurologic: normal touch/pain/proprioception and moves all extremities; no focal motor deficits Psychiatric: A+Ox3, euthymic affect Lymphatic: no cervical or axillary lymphadenopathy Results & Data Results & Data Vital Signs (Past 12 Hours) Vital Signs Temp Pulse Pulse Resp BP Pulse Ox O2 Del Method 08/13/23 15:14 36.7 C 74 16 134/74 94 Room Air 08/13/23 14:43 74 08/13/23 11:15 36.4 C L 67 16 159/74 H 94 Room Air 08/13/23 09:00 Room Air 08/13/23 07:15 66 08/13/23 07:06 36.6 C 68 16 149/75 H 95 Room Air Laboratory Results [facility] 08/13/23 06:57 Sodium 141 Potassium 3.1 L Chloride 109 H Carbon Dioxide 25 BUN 5 L Creatinine 0.62 Glucose 102 H Calcium 7.5 L Medications Administered Current Inpatient Medications Acetaminophen (Acetaminophen 325 Mg Tab) 650 mg PO Q4H PRN PRN Reason: Pain or Fever Stop: 09/06/23 22:47 Atorvastatin Calcium (Atorvastatin 40 Mg Tab) 40 mg PO HS OLVIN Stop: 09/07/23 20:59 Last Admin: 08/12/23 21:39 Dose: 40 mg Davila Syrup (Davila Syrup 5 Ml Udp) 5 ml PO Q6 OLVIN Stop: 08/18/23 00:00 Last Admin: 08/13/23 17:18 Dose: 5 ml Dicyclomine HCl (Dicyclomine Hcl 10 Mg Cap) 10 mg PO TID PRN PRN Reason: abdominal pain Stop: 09/07/23 08:59 Last Admin: 08/09/23 08:12 Dose: 10 mg Enoxaparin Sodium (Enoxaparin Inj 40 Mg/0.4 Ml Syr) 40 mg SQ HS OLVIN Stop: 09/06/23 22:47 Last Admin: 08/12/23 21:39 Dose: 40 mg Cefepime HCl 2,000 mg/ Syringe 20 mls @ 5 mls/min IV Q8H OLVIN Stop: 08/19/23 08:59 Last Admin: 08/13/23 17:18 Dose: 5 mls/min Metronidazole (Flagyl) 500 mg in 100 mls @ 100 mls/hr IV Q8H OLVIN; Protocol Stop: 08/19/23 10:44 Last Admin: 08/13/23 18:05 Dose: 100 mls/hr Loperamide HCl (Loperamide Hcl 2 Mg Cap) 2 mg PO Q3H PRN PRN Reason: Diarrhea Stop: 09/11/23 10:58 Last Admin: 08/13/23 11:35 Dose: 2 mg Nitroglycerin (Nitroglycerin Sl 0.4 Mg/Tab Tab) 0.4 mg SL Q5M PRN PRN Reason: Chest Pain Stop: 09/06/23 22:47 Ondansetron HCl (Ondansetron Inj 2 Mg/Ml 2 Ml Vial) 4 mg IV Q6H PRN PRN Reason: Nausea Stop: 09/06/23 22:47 Last Admin: 08/13/23 17:27 Dose: 4 mg Sertraline HCl (Sertraline Hcl 50 Mg Tablet) 50 mg PO HS [facility] Stop: 09/07/23 20:59 Last Admin: 08/12/23 21:39 Dose: 50 mg Vancomycin HCl (Vancomycin Hcl 250 Mg/5 Ml Soln) 250 mg PO Q6 OLVIN Stop: 08/18/23 00:00 Last Admin: 08/13/23 17:18 Dose: 250 mg
[2023-08-14 11:14] LABS: BUN Creatinine Ratio 11.1 (10-20); Calcium 7.5 mg/dl (8.6-10.3); Creatinine Clr Calc Pharmacy 76.1 ml/min; Est GFR (Non-African American) 83.7 ml/min; Magnesium 1.6 mg/dl (1.7-2.4); Phosphorus 2.7 mg/dl (2.5-4.9); Potassium 3.5 mmol/L (3.5-5.1)
--- NOTE | 2023-08-14 17:45 | Hospitalist Progress Note ---
Date of Service August 14, 2023 Assessment & Plan (1) Colitis due to Clostridioides difficile: Plan: Per prior attending with addendum: 72-year-old female with past medical history significant for dyslipidemia, right ureteral stricture and hydronephrosis, history of uterine cancer as per patient 25 to 30 years ago s/p radiation treatment and s/p ureteral stent which is exchanged every 5 months and next exchange In few weeks as per patient, history of depression who was recently in the hospital for acute right perinephritis and cultures grew corynebacterium was seen by ID and urology and she was treated initially with Rocephin and later with IV Vanco and discharged on oral Zyvox to complete 10 to 14 days of antibiotics.Then patient developed abdominal pain, nausea and diarrhea and was in the ER on August 04.Outpatient stool culture came back C. difficile. She was discharged with p.o. vancomycin from the ER.Per epic PCP prescribed Dificid. Patient states she is taking only p.o. vancomycin.Having lot of nausea not able to eat anything. And still having a lot of diarrhea. And diffuse abdominal pain 7 /10 severity.Denies any fevers. Micturating okay. No hematuria. No blood in the stools. No chest pain or shortness of breath. Had some headache but it got resolved. Currently no cough. No blurred vision. No runny nose or sore throat. Hemodynamics are okay. Ambulating okay as per patient. Colitis due to C. difficile CT scan showing pancolitis and proctitis Will continue with p.o. vancomycin to 250 mg every 6 hours. Clear liquid diet. IV fluids. GI consult in a.m. for further recommendations-appreciate input and recommendation Will change p.o. vancomycin 125 mg every 6 hours Has been getting intravenous Flagyl as well Clinically much better today with decrease in diarrhea and abdominal symptoms Advised to ambulate more----will get PT and OT evaluation Has been getting better gradually still having diarrhea but the numbers are less Will start Imodium as needed to control diarrhea Electrolytes have been supplemented and will monitor Diarrhea has been persisting and she was advised to take more Imodium to control it as abdominal distention and pain has subsided Will advise advance diet and more ambulation Addendum: Diarrhea seems to be persisting likely due to use of antibiotic for UTI. Continue with Flagyl and p.o. vancomycin. Will consult ID for further guidance. UTI Per Ct scan.:ureteritis. Neoplasm is not excluded. Severe right hydronephrosis. Moderate proximal and mid right hydroureter. Right-sided ureteral stent in place. No obstructing stone identified. On Rocephin. Will follow cultures. Urology consult for further recommendations-appreciate recommendation. Urine culture grew Klebsiella pneumoniae and Pseudomonas aeruginosa-sensitive to cefepime and also Cipro Intravenous cefepime has been started and ceftriaxone discontinued Still has minimal UTI symptoms but no fever and no chills Will continue current antibiotic Denies any urinary symptoms Addendum: Continue with cefepime 08/08. Consulted ID. Await further ID recommendation. History of uterine cancer S/p radiation S/p ureteral stent Follows with urology-appreciate input and recommendation Hyperlipidemia On statin Depression On Zoloft DVT prophylaxis Lovenox Disposition Medical/Tele floor Full code Addendum: Await ID evaluation, likely DC in the next few days. Admission and Anticipated Discharge Date Admission Date: August 07, 2023 Subjective Patient seen and examined at bedside. patient was lying in bed, on room air, resting comfortably, reports feeling better. Patient had 2 bowel movements today, reports still loose stool but firming up. Also reports improving frequency of the stool. Patient reports feeling better overall, reports eating okay, denies abdominal pain, denies any pain or burning with passing urine. Physical Exam Physical Exam: GENERAL: Alert and oriented x3. NAD, on RA. HEENT: No pallor, no icterus. Pupils equal, round and reactive to light. Oral mucosa moist. NECK: No JVD, no neck masses. HEART: S1 and S2 heard. Regular rate and rhythm. No murmur, no gallop. RESPIRATORY SYSTEM: Normal AP diameter. No accessory muscle use. No wheezing, no crackles. ABDOMEN: Soft, bowel sounds present, nontender, no distention. CENTRAL NERVOUS SYSTEM: No facial droop. Speech is clear. Obeys simple commands. Moves extremities. EXTREMITIES: No edema, no erythema seen. Results & Data Results & Data Vital Signs (Past 12 Hours) Vital Signs Temp Pulse Pulse Resp BP Pulse Ox O2 Del Method 08/14/23 15:53 36.5 C 78 18 127/71 92 Room Air 08/14/23 11:19 36.7 C 72 18 112/66 93 Room Air 08/14/23 07:35 36.7 C 66 18 143/74 H 94 Room Air 08/14/23 07:30 Room Air 08/14/23 07:08 68
[2023-08-14] MEDS: FAMOTIDINE 20 MG TAB PO SCH (20:21)
[2023-08-15 06:36] LABS: Hematocrit (blood only) 34.1 % (37.0-47.0); Hemoglobin 11.5 g/dl (12.0-16.0); Mean Corpuscular Hemoglobin 30.1 pg (25.0-34.0); Mean Corpuscular Hgb Conc 33.7 g/dL (32.0-36.0); Mean Corpuscular Volume 89.3 fL (80.0-100.0); Mean Platelet Volume 9.3 fL (9.4-12.4); Platelet Count 306 K/uL (130-400); RDW Coefficient of Variation 13.2 % (11.5-14.5); RDW Standard Deviation 42.9 fL (36.4-46.3); Red Blood Count 3.82 M/uL (4.20-5.40); White Blood Count 10.98 K/ul (4.8-10.8)
[2023-08-15 06:59] LABS: BUN Creatinine Ratio 13.1 (10-20); Calcium 7.5 mg/dl (8.6-10.3); Creatinine Clr Calc Pharmacy 90.4 ml/min; Est GFR (Non-African American) 90.6 ml/min; Magnesium 1.7 mg/dl (1.7-2.4); Phosphorus 2.8 mg/dl (2.5-4.9); Potassium 3.1 mmol/L (3.5-5.1)
[2023-08-15] MEDS: POTASSIUM CHLORIDE CRTAB 20 MEQ TABCR PO SCH (10:14)
[2023-08-15] MEDS: MAGNESIUM SULFATE / D5W 1 GM/100 ML BAG IV SCH (10:14)
--- NOTE | 2023-08-15 13:59 | Infectious Disease Consult ---
<Statement entered by Courtney Dykes MD - 08/16/23 14:25> I have discussed the patient's management with the medical trainee and agree with the note. Please refer to the documented findings and plan of care. The patient's service consisted of an evaluation. I have seen and evaluated the patient. Our concern for UTI at this point is low. We would recommend stopping IV c eftriaxone to prevent the worsening of C diff. also please change the dose of vancomycin from 250 to 125 mg 4 times daily and discontinue Flagyl. During today's encounter, she mentioned that she continues to have around 4 bowel movements daily despite receiving 11 days of oral vancomycin. Given her continued symptoms, we would recommend extending the duration of oral vancomycin up to 4 weeks including the last 10 days. Courtney Dykes MD Date of Service August 15, 2023 Telehealth Information I performed this visit using a real-time telehealth connection between my location and the patients location ([facility]). After connecting through interactive tele-video, patient was identified by name and date of and/or wristband check.Patient (or authorized healthcare office machines sales representative) was informed that this was a telemedicine visit and it was being conducted confidentially over secure lines. My office door was closed and no one else was present in the room with me.Patient (or authorized healthcare office machines sales representative) provided consent to proceed with the visit, expressed an understanding of privacy and security of the telemedicine visit, and gave permission to have a hospital office machines sales representative in the room in order to assist with the visit and to conduct portions of the visit, as needed. I informed the patient (or authorized healthcare office machines sales representative) that I reviewed their record and presented the opportunity for them to ask any questions regarding the visit today. The patient agreed to participate. Assessment & Plan (1) C. difficile colitis: Plan: 72-year-old female with Clostridium difficile secondary to treatment of pyelonephritis with vancomycin / linezolid. She does not meet criteria for fulminant Clostridium difficile however her symptoms were slow to respond. 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 Given her delayed response to treatment, reasonable to extend therapy for up to 4 weeks with oral vancomycin at recommended dose of 125 q.6 hours p.o.. She will likely need antibiotics in the future given her ureteral stent and recurrent replacements and would recommend at that time for prophylactic vancomycin to reduce chances of Clostridium difficile due to these episodes with vancomycin given for similar duration of antibiotics. - vancomycin 125 mg p.o. for a total of 4 weeks, including past 10 days. Approximate end date September 03, 2023. - Discontinue metronidazole - Discontinue ceftriaxone Appreciate consultation, please do not hesitate to reach out for any further questions or concerns. Mandeep Lacy MD PGY4 Infectious Disease History of Present Illness History of Present Illness 72-year-old female with a past medical history of right ureteral stricture and hydronephrosis d/t uterine cancer 20-30 years ago status post radiation with replacement of stent every 5 months. Recent hospitalization 07/14/2023 for right pyelonephritis secondary to Corynebacterium with initial treatment with ceftriaxone/IV vancomycin and discharged on oral Zyvox. Patient returned to the ER with diarrhea, C diff positive and placed on p.o. vancomycin, returned to the hospital for worsening diarrhea, unable to tolerate p.o.. CT scan with pancolitis and proctitis, patient was placed on p.o. vancomycin, IV Flagyl. Patient denies any current urinary dysuria, urgency, frequency. She states she had dysuria/ abdominal pain at prior admission when she was diagnosed with pyelonephritis. No current urinary symptoms, she does not endorse up to 10 bowel movements, loose per day at its worst prior to this current admission, she was prescribed vancomycin p.o. starting 08/05/2023, returned 08/07/2023. Patient has now received oral vancomycin as well as IV metronidazole with significant improvement in her symptoms. She is approximately day 10 of appropriate Clostridium difficile therapy. Allergies Allergy/AdvReac Type Severity Reaction Status Date / Time No Known Allergies Allergy Unknown Verified 08/05/23 17:36 Home Medications Medication Instructions Recorded Confirmed Type atorvastatin 40 mg tablet 40 mg PO HS 08/07/23 08/07/23 History sertraline 50 mg tablet 50 mg PO HS 08/07/23 08/07/23 History vancomycin 125 mg capsule 125 mg PO QID 08/07/23 08/07/23 History Patient History Medical History Depression HLD (hyperlipidemia) Uterine cancer Surgical History Hx of tonsillectomy History of hysterectomy Family History Other Family history non-contributory Social History Smoking Status: Never smoker Hx Alcohol Use: No Hx Substance Use: No Preferred Language: Latvian Communication Ability: Effective Peanut Picker Required: No Beliefs That Will Affect Care: None Current Living Situation: Alone Current Living Situation Comment: Owns home, ramp to enter Other Information That Helps Us Care for You: No Feels Safe at Home: Yes Safety Concerns: Feels Safe At This Time Assistive Devices: None Review of Systems CONSTITUTIONAL: Denies weight loss, fever and chills. HEENT: Denies changes in vision and hearing. RESPIRATORY: Denies SOB and cough. CV: Denies palpitations and CP. GI: Denies abdominal pain, nausea, vomiting and diarrhea. : Denies dysuria and urinary frequency. MSK: Denies myalgia and joint pain. SKIN: Denies rash and pruritus. NEUROLOGICAL: Denies headache and syncope PSYCHIATRIC: Denies recent changes in mood. Denies anxiety and depression. Results & Data Vital Signs (Past 12 Hours) Vital Signs Temp Pulse Pulse Resp BP Pulse Ox O2 Del Method 08/15/23 11:23 36.8 C 72 16 121/67 93 Room Air 08/15/23 08:52 71 08/15/23 07:52 36.7 C 60 16 158/74 H 93 Room Air 08/15/23 04:52 36.7 C 68 18 147/73 H 94 Room Air Diagnostic Findings 08/15/23 06:10 WBC 10.98 H RBC 3.82 L Hgb 11.5 L Hct 34.1 L MCV 89.3 MCH 30.1 MCHC 33.7 RDW Std Deviation 42.9 RDW Coeff of Narayan 13.2 Plt Count 306 MPV 9.3 L Sodium 140 Potassium 3.1 L Chloride 108 H Carbon Dioxide 28 Anion Gap 4 BUN 8 Creatinine 0.61 Est Cr Clr Drug Dosing 90.4 Est GFR ( Amer) 105.0 Est GFR (Non-Af Amer) 90.6 BUN/Creatinine Ratio 13.1 Glucose 91 Calcium 7.5 L Phosphorus 2.8 Magnesium 1.7
--- NOTE | 2023-08-15 15:37 | Hospitalist Progress Note ---
Date of Service August 15, 2023 Assessment & Plan (1) Colitis due to Clostridioides difficile: Plan: 72-year-old female with past medical history significant for dyslipidemia, right ureteral stricture and hydronephrosis, history of uterine cancer as per patient 25 to 30 years ago s/p radiation treatment and s/p ureteral stent which is exchanged every 5 months and next exchange In few weeks as per patient, history of depression who was recently in the hospital for acute right perinephritis and cultures grew corynebacterium was seen by ID and urology and she was treated initially with Rocephin and later with IV Vanco and discharged on oral Zyvox to complete 10 to 14 days of antibiotics. Then patient developed abdominal pain, nausea and diarrhea and was in the ER on August 04. Outpatient stool culture came ba ck C. difficile. She was discharged with p.o. vancomycin from the ER.Per epic PCP prescribed Dificid. Patient states she was taking only p.o. vancomycin. Came in w/ complaints of diarrhea. She is being managed for the following: Colitis due to C. difficile CT scan showing pancolitis and proctitis Underwent recent antibiotic coverage, see above. Because of no improvement in her diarrhea, IV metronidazole was added 5/10 on top of p.o. vancomycin. ID evaluated, recommend discontinuing antibiotic for UTI, recommend p.o. vancomycin 125 mg every 6 hours for total of 4 weeks. Approximate end date 10/03/2023.Recommend DC metronidazole. Patient reports improving stool consistency, frequency about the same as yesterday. Will DC cefepime and metronidazole. Continue p.o. vancomycin. Complicated UTI: Per CT scan, ureteritis. Patient had lower abdominal pain at presentation. Urine culture reviewed. ID evaluated, status post cefepime. Cef epime dc'd 08/14. History of uterine cancer S/p radiation S/p ureteral stent Follows with urology-f/u as OP. Hyperlipidemia: On statin Depression: On Zoloft DVT prophylaxis: Lovenox Disposition: Medical/Tele floor Full code pt/ot, cm to assist w/ dc plan. Admission and Anticipated Discharge Date Admission Date: August 07, 2023 Subjective Patient seen and examined at bedside. patient was lying in bed, on room air, resting comfortably, reports feeling better. Patient had 3 bowel movements today, reports still loose stool but firming up, better than yesterday. freq about the same. Patient reports feeling better overall, reports eating okay, denies abdominal pain, denies any pain or burning with passing urine. Physical Exam Physical Exam: GENERAL: Alert and oriented x3. NAD, on RA. HEENT: No pallor, no icterus. Pupils equal, round and reactive to light. Oral mucosa moist. NECK: No JVD, no neck masses. HEART: S1 and S2 heard. Regular rate and rhythm. No murmur, no gallop. RESPIRATORY SYSTEM: Normal AP diameter. No accessory muscle use. No wheezing, no crackles. ABDOMEN: Soft, bowel sounds present, nontender, no distention. CENTRAL NERVOUS SYSTEM: No facial droop. Speech is clear. Obeys simple commands. Moves extremities. EXTREMITIES: No edema, no erythema seen. Results & Data Results & Data Vital Signs (Past 12 Hours) Vital Signs Temp Pulse Pulse Resp BP Pulse Ox O2 Del Method 08/15/23 14:38 70 08/15/23 11:23 36.8 C 72 16 121/67 93 Room Air 08/15/23 08:52 71 08/15/23 07:52 36.7 C 60 16 158/74 H 93 Room Air 08/15/23 04:52 36.7 C 68 18 147/73 H 94 Room Air
[2023-08-15] MEDS: PSYLLIUM or GUAR GUM FIBER 4GM PACKET PO SCH (17:34)
[2023-08-16 06:31] LABS: BUN Creatinine Ratio 15.4 (10-20); Calcium 7.4 mg/dl (8.6-10.3); Creatinine Clr Calc Pharmacy 105.8 ml/min; Est GFR (African American) 110.6 ml/min; Est GFR (Non-African American) 95.5 ml/min; Magnesium 2.1 mg/dl (1.7-2.4); Phosphorus 2.3 mg/dl (2.5-4.9); Potassium 3.3 mmol/L (3.5-5.1)
[2023-08-16 06:34] LABS: Hematocrit (blood only) 32.7 % (37.0-47.0); Mean Corpuscular Hemoglobin 30.1 pg (25.0-34.0); Mean Corpuscular Hgb Conc 33.6 g/dL (32.0-36.0); Mean Corpuscular Volume 89.3 fL (80.0-100.0); Mean Platelet Volume 9.4 fL (9.4-12.4); Platelet Count 279 K/uL (130-400); RDW Coefficient of Variation 13.4 % (11.5-14.5); RDW Standard Deviation 43.8 fL (36.4-46.3); Red Blood Count 3.66 M/uL (4.20-5.40); White Blood Count 10.69 K/ul (4.8-10.8)
[2023-08-16] MEDS: POTASSIUM CHLORIDE CRTAB 20 MEQ TABCR PO STA (09:19)
[2023-08-16] MEDS: POT PHOSPHATE MONOBASIC W/ SOD TAB PO SCH (11:05)
--- NOTE | 2023-08-16 15:49 | Hospitalist Progress Note ---
Date of Service August 16, 2023 Assessment & Plan (1) Colitis due to Clostridioides difficile: Plan: 72-year-old female with past medical history significant for dyslipidemia, right ureteral stricture and hydronephrosis, history of uterine cancer as per patient 25 to 30 years ago s/p radiation treatment and s/p ureteral stent which is exchanged every 5 months and next exchange In few weeks as per patient, history of depression who was recently in the hospital for acute right perinephritis and cultures grew corynebacterium was seen by ID and urology and she was treated initially with Rocephin and later with IV Vanco and discharged on oral Zyvox to complete 10 to 14 days of antibiotics. Then patient developed abdominal pain, nausea and diarrhea and was in the ER on August 04. Outpatient stool culture came ba ck C. difficile. She was discharged with p.o. vancomycin from the ER.Per epic PCP prescribed Dificid. Patient states she was taking only p.o. vancomycin. Came in w/ complaints of diarrhea. She is being managed for the following: Colitis due to C. difficile CT scan showing pancolitis and proctitis Underwent recent antibiotic coverage, see above. Because of no improvement in her diarrhea, IV metronidazole was added 08/08 on top of p.o. vancomycin. ID evaluated 08/14, recommend discontinuing antibiotic for UTI, recommend p.o. vancomycin 125 mg every 6 hours for total of 4 weeks. Approximate end date 10/03/2023. Recommend DC metronidazole. Patient reports improving stool consistency, frequency improvement has been fluctuating. Follow. Continue p.o. vancomycin. Complicated UTI: Per CT scan, ureteritis. Patient had lower abdominal pain at presentation. Urine culture reviewed. ID evaluated, status post cefepime. Cefepime dc'd 08/14. History of uterine cancer S/p radiation S/p ureteral stent Follows with urology-f/u as OP. Hyperlipidemia: On statin Depression: On Zoloft DVT prophylaxis: Lovenox Disposition: Medical/Tele floor Full code pt/ot, cm to assist w/ dc plan. likely dc lorraine Admission and Anticipated Discharge Date Admission Date: August 07, 2023 Subjective Patient seen and examined at bedside. patient was lying in bed, on room air, resting comfortably, reports feeling better. Patient had 4-5 bowel movements today, reports semi solid stool, but frequency on higher side, hence not comfortable going home today. Patient reports feeling better overall, reports eating okay, denies abdominal pain, denies any pain or burning with passing urine. Physical Exam Physical Exam: GENERAL: Alert and oriented x3. NAD, on RA. HEENT: No pallor, no icterus. Pupils equal, round and reactive to light. Oral mucosa moist. NECK: No JVD, no neck masses. HEART: S1 and S2 heard. Regular rate and rhythm. No murmur, no gallop. RESPIRATORY SYSTEM: Normal AP diameter. No accessory muscle use. No wheezing, no crackles. ABDOMEN: Soft, bowel sounds present, nontender, no distention. CENTRAL NERVOUS SYSTEM: No facial droop. Speech is clear. Obeys simple commands. Moves extremities. EXTREMITIES: No edema, no erythema seen. Results & Data Results & Data Vital Signs (Past 12 Hours) Vital Signs Temp Pulse Pulse Resp BP Pulse Ox O2 Del Method 08/16/23 14:59 36.6 C 73 18 102/62 96 Room Air 08/16/23 11:50 36.3 C L 69 18 125/68 95 Room Air 08/16/23 08:17 36.6 C 65 18 151/76 H 93 Room Air 08/16/23 08:00 69
[2023-08-16] MEDS: VANCOMYCIN HCL 125 MG/2.5ML SOLN PO SCH (20:43)
[2023-08-17 07:52] LABS: Hematocrit (blood only) 33.8 % (37.0-47.0); Hemoglobin 10.9 g/dl (12.0-16.0); Mean Corpuscular Hemoglobin 29.6 pg (25.0-34.0); Mean Corpuscular Hgb Conc 32.2 g/dL (32.0-36.0); Mean Corpuscular Volume 91.8 fL (80.0-100.0); Mean Platelet Volume 9.7 fL (9.4-12.4); Platelet Count 283 K/uL (130-400); RDW Coefficient of Variation 13.9 % (11.5-14.5); RDW Standard Deviation 46.1 fL (36.4-46.3); Red Blood Count 3.68 M/uL (4.20-5.40); White Blood Count 9.93 K/ul (4.8-10.8)
[2023-08-17 07:58] LABS: Anion Gap 3 (3-11); BUN Creatinine Ratio 17.5 (10-20); Blood Urea Nitrogen 10 mg/dl (6-23); Calcium 7.6 mg/dl (8.6-10.3); Carbon Dioxide 30 mmol/L (21-32); Chloride 107 mmol/L (98-107); Creatinine Clr Calc Pharmacy 96.5 ml/min; Est GFR (African American) 107.3 ml/min; Est GFR (Non-African American) 92.6 ml/min; Glucose 88 mg/dl (70-99(Fasting)); Phosphorus 3.4 mg/dl (2.5-4.9); Sodium 140 mmol/L (136-145)
--- NOTE | 2023-08-17 12:49 | Discharge Summary ---
Date of Service August 17, 2023 Admission HPI Per Admitting Provider 72-year-old female with past medical history significant for dyslipidemia, right ureteral stricture and hydronephrosis, history of uterine cancer as per patient 25 to 30 years ago s/p radiation treatment and s/p ureteral stent which is exchanged every 5 months and next exchange In few weeks as per patient, history of depression who was recently in the hospital for acute right perinephritis and cultures grew corynebacterium was seen by ID and urology and she was treated initially with Rocephin and later with IV Vanco and discharged on oral Zyvox to complete 10 to 14 days of antibiotics.Then patient developed abdominal pain, nausea and diarrhea and was in the ER on August 04.Outpatient stool culture came back C. difficile. She was discharged with p.o. vancomycin from the ER.Per [facility] PCP prescribed Dificid. Patient states she is taking only p.o. vancomycin.Having lot of nausea not able to eat anything. And still having a lot of diarrhea. And diffuse abdominal pain 7 /10 severity.Denies any fevers. Micturating okay. No hematuria. No blood in the stools. No chest pain or shortness of breath. Had some headache but it got resolved. Currently no cough. No blurred vision. No runny nose or sore throat. Hemodynamics are okay. Ambulating okay as per patient. Past medical history. As mentioned above Past surgical history. Colonoscopy. Cystoscopy with insertion of stent on right side multiple times, tonsillectomy, total abdominal hysterectomy with removal of tubes Social history. No smoking. No alcohol. No drug use. Family history. Father had pancreatic cancer. Mother had diabetes. Ovarian cancer. Sister had diabetes. Sister had uterine cancer. Son had Curly's disease disease. Niece has uterine cancer. Maternal uncle had mesothelioma Admission Exam Per Admitting Provider General- Not in distress Head- atraumatic Eyes- PERRL. ENT- oropharynx clear Neck- supple, no JVD. Lungs- clear to auscultation no wheezing or crackles. Heart- regular rhythm; no murmur, no gallop. Abdomen- normal bowel sounds, soft, mild diffuse tender , no distension. Extremities- no pretibial edema, no erythema seen. Neuro- alert, oriented PERRL, no facial palsy; no dysarthria; moves extremities. Principal Diagnosis C. difficile colitis Complicated UTI Discharge Exam GENERAL: Alert and oriented x3. NAD, on RA. HEENT: No pallor, no icterus. Pupils equal, round and reactive to light. Oral mucosa moist. NECK: No JVD, no neck masses. HEART: S1 and S2 heard. Regular rate and rhythm. No murmur, no gallop. RESPIRATORY SYSTEM: Normal AP diameter. No accessory muscle use. No wheezing, no crackles. ABDOMEN: Soft, bowel sounds present, nontender, no distention. CENTRAL NERVOUS SYSTEM: No facial droop. Speech is clear. Obeys simple commands. Moves extremities. EXTREMITIES: No edema, no erythema seen. Discharge Data Allergies Allergy/AdvReac Type Severity Reaction Status Date / Time No Known Allergies Allergy Unknown Verified 08/05/23 17:36 Consultations 08/07/23 20:25 ED Decision to Admit Stat 08/08/23 08:00 Consult Gastroenterology Routine Consult Urology Routine 08/14/23 10:17 Consult Infectious Diseases Routine Ordered Studies 08/07/23 18:36 CT abd pelvis IV con only Stat Hospital Course (1) Colitis due to Clostridioides difficile: 72-year-old female with past medical history significant for dyslipidemia, right ureteral stricture and hydronephrosis, history of uterine cancer as per patient 25 to 30 years ago s/p radiation treatment and s/p ureteral stent which is exchanged every 5 months and next exchange In few weeks as per patient, history of depression who was recently in the hospital for acute right perinephritis and cultures grew corynebacterium was seen by ID and urology and she was treated initially with Rocephin and later with IV Vanco and discharged on oral Zyvox to complete 10 to 14 days of antibiotics. Then patient developed abdominal pain, nausea and diarrhea and was in the ER on August 04. Outpatient stool culture came back C. difficile. She was discharged with p.o. vancomycin from the ER.Per [facility] PCP prescribed Dificid. Patient states she was taking only p.o. vancomycin. Came in w/ complaints of diarrhea. She was managed for the following: Colitis due to C. difficile CT scan showing pancolitis and proctitis Underwent recent antibiotic coverage, see above. Patient reports improving consistency of the stool, now closer to solid consistency. Continue p.o. vancomycin 125 mg every 6 hour to complete 4-week therapy. End date 10/03/2023. Patient feels clinically better and is hemodynamically stable and would like to go home today. Complicated UTI: Per CT scan, ureteritis. Patient had lower abdominal pain at presentation. Urine culture reviewed. ID evaluated, status post cefepime. Cefepime dc'd 08/14. History of uterine cancer S/p radiation S/p ureteral stent Follows with urology-f/u as OP. Hyperlipidemia: On statin Depression: On Zoloft DVT prophylaxis: Lovenox Disposition: Medical/Tele floor Full code Patient is being discharged with following instruction at the point of discharge: Follow-up with your primary care physician within a week time and likely you will need labs CBC/CMP/magnesium/phosphorus. You will be discharged on oral vancomycin to complete 4-week therapy. You can use as needed OTC loperamide after each loose stool per retort forker's direction. You can use 4 g of psyllium fiber daily for next 1 to 2 weeks to h elp formed stool. It is also [id number] medication. You underwent treatment for UTI while in the hospital, you completed the treatment for UTI. In the future, you will likely need prophylactic p.o. vancomycin to reduce chances of C. difficile colitis if/when you need antibiotic for any other reasons. Take your medications as prescribed. Please make sure that you are able to get your medications today by calling your pharmacy before you leave the hospital so that your treatment continuity is not broken. Home Health Attestation I certify that this patient is under my care and that I, or a physicians higher level teaching assistant working with me, had a face to-face encounter that meets the home health ywgy-[id number] encounter requirements with this patient. The encounter with the patient was in whole, or in part, for the following medical condition, which is the primary reason for home health care (list medical condition): I certify that, based on my findings, the following services are medically necessary home health services: My clinical findings support the need for the above services because: Further, I certify that my clinical findings support that this patient is homebound (i.e. absences from home require considerable and taxing effort and are for medical reasons or alevism services or infrequently or of short duration when for other reasons) because: Certification for Home Health Services: Based on the above findings, I certify that this patient is confined to the home and needs intermittent senior living care, physical therapy and/or speech therapy or continues to need occupational therapy. The patient is under my care, and I have initiated the establishment of the plan of care. This patient will be followed by a physician who will periodically review the plan of care. Total Time Total Time Spent Total Time Spent (In Minutes): 45 Discharge Plan Discharge Items Patient Disposition: Home - Self-Care Reason For Visit: C DIFF COLITIS, UTI Discharge Diagnosis: C. difficile colitis Complicated UTI Activity: Resume your previous activity Non-emergency contact: Primary Care Provider Call non-emergency contact if: you have any medication questions and your symptoms worsen Follow-up/Referrals: Bridger Mcnamara MD [Outside Practitioners] - (Date & Time 08/21/2023 3:45 PM Provider Bridger Mcnamara MD Department Urology, [facility] ) Marina Baird MD [Primary Care Provider] - (Date & Time 08/22/2023 11:20 AM Provider Marina Baird MD Department Family Practice [facility]) Diet: Regular Addtl Attending Provider Instructions: Follow-up with your primary care physician within a week time and likely you will need labs CBC/CMP/magnesium/phosphorus. You will be discharged on oral vancomycin to complete 4-week therapy. You can use as needed OTC loperamide after each loose stool per retort forker's directi on. You can use 4 g of psyllium fiber daily for next 1 to 2 weeks to help formed stool. It is also [id number] medication. You underwent treatment for UTI while in the hospital, you completed the treatment for UTI. In the future, you will likely need prophylactic p.o. vancomycin to reduce chances of C. difficile colitis if/when you need antibiotic for any other reasons. Take your medications as prescribed. Please make sure that you are able to get your medications today by calling your pharmacy before you leave the hospital so that your treatment continuity is not broken. Pending Studies at Discharge: No Stand-Alone Forms: My [employer], Smoking Cessation Medications and DC Order Prescriptions: New loperamide 2 mg Capsule 2 mg PO Q6H PRN (Reason: loose stool) 7 Days Qty: 28 0RF Continued atorvastatin 40 mg tablet 40 mg PO HS sertraline 50 mg tablet 50 mg PO HS vancomycin 125 mg Capsule 125 mg PO QID 18 Days Qty: 72 0RF Discharge Orders: Discharge Order (Routine); Ordered 08/17/23 Ordered By: Miroslava Tierney Admission Data Admit Date/Time: 08/07/23 20:42 Attending Provider: Miroslava Tierney Admit Provider: Ramon Gardiner Primary Care Provider: Marina Baird Other Providers: Ramon Gardiner; Rich Leonard; Frankie Sparrow; Shanti Jimenez; Nicole Humphrey; Yudith Gardiner; Sera Andersen; Tyra Calvillo; Stephen Mao; Carlton Marte; Uziel Andersen; Gabriel Tran; Viri Negron; Shelley Chery; Sunni Mascorro; Flaca Olson; Rakel Suggs; Mandeep Pollack; Jorge Alberto Albert; Frankie Corado; Antonella Plata; Selam Winter Jr; Mike Stephens; Jose Kelly; Bang Mcintyre I.; Eliseo Bauman II; Eda Ruffin; Osman Contreras; Michael Ko; Courtney Dykes; Mandeep Lacy
== END 2023-08-17 15:55 | disposition home or self-care (01) | DRG 372 ==
LOC: ED 16:54 → 2W 20:42 → SUATTDRO 20:42 → 2W 22:09 → 3W 08-16 16:56